=== PATIENT | male | born 1990 | race African-American/Black ===

== ENCOUNTER 2017-02-14 15:31 | Emergency (ER) | payer MEDICAID, OTHER ==
[~2017-02-14] VITALS: Ht 175.3 cm; Wt 114.0 kg
[2017-02-14] MEDS ORDERED: IBUPROFEN 600MG TABLET PO ONE (22:45)
[2017-02-14 23:00] VITALS: BP 141/86
== END 2017-02-14 23:13 | disposition home or self-care (01) ==
LOC: ER 15:31
DX: L03.113 Cellulitis of right upper limb (principal); R03.0 Elevated blood-pressure reading, without diagnosis of hypertension; F12.90 Cannabis use, unspecified, uncomplicated
CPT/HCPCS: 99283

== ENCOUNTER 2019-06-08 10:19 | Emergency (ER) | payer MEDICAID ==
[~2019-06-08] VITALS: Ht 177.8 cm; Wt 98.8 kg
[2019-06-08] MEDS: ONDANSETRON HCL 4MG/2ML INJ IV STA (12:06)
[2019-06-08] MEDS: MECLIZINE 25MG TABLET PO ONE (12:06)
[2019-06-08 12:27] LABS: CLARITY URINE CLEAR (CLEAR); COLOR URINE YELLOW (YELLOW); KETONES URINE TRACE (NEGATIVE); LEUKOCYTE ESTERASE URINE NEGATIVE (NEGATIVE); NITRITE URINE NEGATIVE (NEGATIVE); OCCULT BLOOD URINE NEGATIVE (NEGATIVE); PROTEIN URINE 1+ (NEGATIVE); SPECIFIC GRAVITY URINE 1.009 (1.005-1.030); UROBILINOGEN URINE 0.2 E.U./dL (0.2-1.0)
[2019-06-08 12:28] LABS: BASOPHILS % 0.1 % (0.0-2.0); EOSINOPHILS % 0.1 % (0.0-5.0); HEMATOCRIT. 35.7 % (42.0-52.0); HEMOGLOBIN. 12.2 g/dL (14.0-18.0); LYMPHOCYTES % 24.4 % (20.0-50.0); MEAN CORPUSCULAR HEMOGLOBIN 31.3 pg (28.0-32.0); MEAN CORPUSCULAR VOLUME 91.8 fL (80.0-94.0); MONOCYTES % 12.2 % (2.0-8.0); NEUTROPHILS % 63.2 % (40.0-76.0); PLATELET 161 x1000/uL (130-400); RED CELL DISTRIBUTION WIDTH 13.1 % (11.6-14.6)
[2019-06-08 12:38] LABS: ETHANOL BLOOD < 10 mg/dL
[2019-06-08 12:56] LABS: *AMPHETAMINES SCREEN URINE NEGATIVE (NEGATIVE); *BARBITURATES SCREEN URINE NEGATIVE (NEGATIVE)
[2019-06-08 12:57] LABS: *BENZODIAZEPINES SCREEN URINE NEGATIVE (NEGATIVE); *COCAINE SCREEN URINE NEGATIVE (NEGATIVE); CANNABINOID URINE SCREEN PRESUMTIVE POSITIVE (NEGATIVE); METHADONE URINE SCREEN NEGATIVE (NEGATIVE); OPIATES URINE SCREEN NEGATIVE (NEGATIVE); PHENCYCLIDINE URINE SCREEN NEGATIVE (NEGATIVE)
[2019-06-08 13:08] LABS: CHLORIDE 102 mEq/L (98-107)
[2019-06-08] MEDS: TRAMADOL 50MG TABLET PO ONE (14:58)
[2019-06-08 15:29] VITALS: BP 112/69
== END 2019-06-08 15:30 | disposition home or self-care (01) ==
LOC: ER 10:19
DX: S00.83XA Contusion of other part of head, initial encounter (principal); X58.XXXA Exposure to other specified factors, initial encounter; Y93.89 Activity, other specified; Y92.89 Other specified places as the place of occurrence of the external cause; Y99.8 Other external cause status; F17.290 Nicotine dependence, other tobacco product, uncomplicated; F12.10 Cannabis abuse, uncomplicated; Z91.011 Allergy to milk products
CPT/HCPCS: 36415; 70450; 70486; 80053; 80305; 80320; 81003; 85025; 99284; J8597; J2405; G0480

== ENCOUNTER 2019-12-31 18:58 | Emergency (ER) | payer MEDICAID ==
[~2019-12-31] VITALS: Ht 180.3 cm; Wt 88.0 kg
[2019-12-31] MEDS ORDERED: LIDOCAINE HCL 1%/EPI 1:200,000 30 ML VIAL MC ONE (19:30)
[2019-12-31] MEDS ORDERED: LIDOCAINE HCL/EPINEPHRINE 1%-EPI 1:100,000 20 ML VIAL MC NR (20:00)
[2019-12-31 20:44] VITALS: BP 128/84
== END 2019-12-31 20:44 | disposition home or self-care (01) ==
LOC: ER 18:58
DX: L02.31 Cutaneous abscess of buttock (principal); F12.10 Cannabis abuse, uncomplicated; Z91.011 Allergy to milk products
CPT/HCPCS: 10060; 99282; 99283

== ENCOUNTER 2020-01-10 23:48 | Inpatient (IN) | payer MEDICAID ==
[~2020-01-10] VITALS: Ht 177.8 cm; Wt 81.9 kg
[2020-01-11] MEDS ORDERED: ONDANSETRON HCL 4MG/2ML INJ IV STA (00:21)
[2020-01-11] MEDS ORDERED: SODIUM CHLORIDE 0.9% 1,000 ML IV ONE (00:21)
[2020-01-11] MEDS ORDERED: KETOROLAC 30MG/ML VIAL IV STA (00:21)
[2020-01-11] MEDS ORDERED: FAMOTIDINE 20MG/2ML VIAL IV STA (00:21)
[2020-01-11] MEDS ORDERED: MAGNESIUM/ALUMINUM HYDROXIDE/SIMETHICONE 30ML UDC PO STA (00:21)
[2020-01-11 00:55] LABS: EOSINOPHILS % 3.4 % (0.0-5.0); HEMATOCRIT. 35.3 % (42.0-52.0); HEMOGLOBIN. 11.9 g/dL (14.0-18.0); LYMPHOCYTES % 11.5 % (20.0-50.0); MEAN CORPUSCULAR HEMOGLOBIN 30.5 pg (28.0-32.0); MEAN CORPUSCULAR VOLUME 90.3 fL (80.0-94.0); MEAN PLATELET VOLUME 8.2 fl (7.4-10.4); MONOCYTES % 10.8 % (2.0-8.0); NEUTROPHILS % 74.3 % (40.0-76.0); PLATELET 149 x1000/uL (130-400); RED BLOOD CELL COUNT 3.91 mill/uL (4.7-6.1); RED CELL DISTRIBUTION WIDTH 14.3 % (11.6-14.6)
[2020-01-11 00:57] LABS: CHLORIDE 105 mEq/L (98-107)
[2020-01-11] MEDS ORDERED: ACETAMINOPHEN 325MG TABLET PO PRN ×3 (02:30→02:45)
[2020-01-11] MEDS: DEXT 5%/0.45% NACL 1000ML 1,000 ML IV SCH ×4 (02:36→21:30)
[2020-01-11] MEDS ORDERED: DIPHENHYDRAMINE 50MG/ML VIAL IV PRN (02:45)
[2020-01-11 03:03] LABS: CREATINE KINASE 948 IU/L (39-308)
[2020-01-11 03:06] LABS: CLARITY URINE CLOUDY (CLEAR); COLOR URINE YELLOW (YELLOW); KETONES URINE NEGATIVE (NEGATIVE); LEUKOCYTE ESTERASE URINE NEGATIVE (NEGATIVE); NITRITE URINE NEGATIVE (NEGATIVE); OCCULT BLOOD URINE 2+ (NEGATIVE); PROTEIN URINE 3+ (NEGATIVE); UROBILINOGEN URINE 0.2 E.U./dL (0.2-1.0)
[2020-01-11 09:00] VITALS: BP 140/71
[2020-01-11] MEDS: FAMOTIDINE 20MG/2ML VIAL IV SCH (09:00)
[2020-01-11 09:15] VITALS: BP 140/71
[2020-01-11 11:26] LABS: CHLORIDE 109 mEq/L (98-107)
[2020-01-11 12:00] VITALS: BP 159/68
[2020-01-11 16:00] VITALS: BP 120/72
[2020-01-11 20:00] VITALS: BP 120/66
[2020-01-11] MEDS: ONDANSETRON HCL 4MG/2ML INJ IV PRN (21:30)
[2020-01-12] VITALS: BP 110/68
[2020-01-12] MEDS ORDERED: LOPERAMIDE HCL 2MG CAPSULE PO PRN (02:15)
[2020-01-12 03:32] LABS: *AMPHETAMINES SCREEN URINE NEGATIVE (NEGATIVE); *BARBITURATES SCREEN URINE NEGATIVE (NEGATIVE); *BENZODIAZEPINES SCREEN URINE NEGATIVE (NEGATIVE); *COCAINE SCREEN URINE NEGATIVE (NEGATIVE); METHADONE URINE SCREEN NEGATIVE (NEGATIVE); OPIATES URINE SCREEN PRESUMTIVE POSITIVE (NEGATIVE)
[2020-01-12 03:33] LABS: CANNABINOID URINE SCREEN PRESUMTIVE POSITIVE (NEGATIVE); PHENCYCLIDINE URINE SCREEN NEGATIVE (NEGATIVE)
[2020-01-12 03:44] LABS: CREATININE URINE RANDOM 191.4 mg/dL
[2020-01-12 04:00] VITALS: BP 128/76
[2020-01-12] MEDS: DEXT 5%/0.45% NACL 1000ML 1,000 ML IV SCH ×3 (05:16→18:36)
[2020-01-12 06:47] LABS: PARTIAL THROMBOPLASTIN TIME 35.5 sec (23.4-31.0); PROTHROMBIN TIME 10.7 sec (9.6-11.0)
[2020-01-12 06:48] LABS: HEMOGLOBIN. 10.1 g/dL (14.0-18.0); MEAN CORPUSCULAR HEMOGLOBIN 32.1 pg (28.0-32.0); MEAN CORPUSCULAR VOLUME 92.2 fL (80.0-94.0); RED BLOOD CELL COUNT 3.14 mill/uL (4.7-6.1); RED CELL DISTRIBUTION WIDTH 14.6 % (11.6-14.6)
[2020-01-12 06:56] LABS: CHLORIDE 110 mEq/L (98-107)
[2020-01-12 07:01] LABS: PHOSPHORUS 3.5 mg/dL (2.5-4.9)
[2020-01-12 07:36] LABS: HEPATITIS B SURFACE ANTIGEN NEGATIVE
[2020-01-12 08:03] VITALS: BP 120/73
[2020-01-12 08:06] LABS: HEPATITIS A AB IGM NEGATIVE (NEGATIVE)
[2020-01-12] MEDS: ONDANSETRON HCL 4MG/2ML INJ IV PRN (08:43)
[2020-01-12] MEDS: FAMOTIDINE 20MG/2ML VIAL IV SCH (08:43)
[2020-01-12 12:00] VITALS: BP 120/74
[2020-01-12 12:18] LABS: PLATELET ESTIMATE NORMAL
[2020-01-12 20:19] VITALS: BP 115/58
[2020-01-13] VITALS (7 sets, daily range): BP systolic 113–136; BP diastolic 65–79
[2020-01-13] MEDS: DEXT 5%/0.45% NACL 1000ML 1,000 ML IV SCH ×4 (01:10→21:40)
[2020-01-13] MEDS: ONDANSETRON HCL 4MG/2ML INJ IV PRN ×2 (01:55→09:26)
[2020-01-13 06:47] LABS: HEMATOCRIT. 28.6 % (42.0-52.0); HEMOGLOBIN. 9.8 g/dL (14.0-18.0); MEAN CORPUSCULAR HEMOGLOBIN 30.8 pg (28.0-32.0); MEAN CORPUSCULAR VOLUME 89.7 fL (80.0-94.0); MEAN PLATELET VOLUME 8.7 fl (7.4-10.4); PLATELET 124 x1000/uL (130-400); RED BLOOD CELL COUNT 3.18 mill/uL (4.7-6.1)
[2020-01-13 07:06] LABS: PHOSPHORUS 3.2 mg/dL (2.5-4.9)
[2020-01-13] MEDS: FAMOTIDINE 20MG/2ML VIAL IV SCH (09:12)
[2020-01-13] MEDS ORDERED: MAGNESIUM 4 G PREMIX 100 ML IV NR (12:00)
[2020-01-13 13:14] LABS: PLATELET ESTIMATE SLIGHTLY DECREASED
[2020-01-14] VITALS: BP 123/75
[2020-01-14] MEDS: ONDANSETRON HCL 4MG/2ML INJ IV PRN (01:12)
[2020-01-14 04:00] VITALS: BP 125/80
[2020-01-14] MEDS: DEXT 5%/0.45% NACL 1000ML 1,000 ML IV SCH ×2 (04:04→10:32)
[2020-01-14 06:23] LABS: HEMATOCRIT. 27.4 % (42.0-52.0); HEMOGLOBIN. 9.4 g/dL (14.0-18.0); MEAN CORPUSCULAR HEMOGLOBIN 31.1 pg (28.0-32.0); MEAN CORPUSCULAR VOLUME 90.3 fL (80.0-94.0); MEAN PLATELET VOLUME 8.8 fl (7.4-10.4); PLATELET 123 x1000/uL (130-400); RED BLOOD CELL COUNT 3.04 mill/uL (4.7-6.1); RED CELL DISTRIBUTION WIDTH 14.7 % (11.6-14.6)
[2020-01-14 06:36] LABS: PHOSPHORUS 2.8 mg/dL (2.5-4.9)
[2020-01-14 08:00] VITALS: BP 118/79
[2020-01-14] MEDS: FAMOTIDINE 20MG/2ML VIAL IV SCH (08:55)
[2020-01-14 09:10] LABS: IMMUNOGLOBULIN A 1657 mg/dL (90-386); IMMUNOGLOBULIN G 2208 mg/dL (603-1613); IMMUNOGLOBULIN M 388 mg/dL (20-172)
[2020-01-14] MEDS ORDERED: MAGNESIUM 2 G PREMIX 50 ML IV NR (14:30)
[2020-01-14 16:00] VITALS: BP 114/65
[2020-01-14 19:48] LABS: PLATELET ESTIMATE SLIGHTLY DECREASED
[2020-01-14 20:00] VITALS: BP 128/76
[2020-01-14 20:12] VITALS: BP 128/76
[2020-01-15 08:07] LABS: A/G RATIO 0.5 (0.7-1.7); ALBUMIN 2.8 g/dL (2.9-4.4); ALPHA-1-GLOBULIN 0.3 g/dL (0.0-0.4); ALPHA-2-GLOBULIN 0.8 g/dL (0.4-1.0); BETA GLOBULIN 2.2 g/dL (0.7-1.3); GAMMA GLOBULINS 2.2 g/dL (0.4-1.8); GLOBULIN TOTAL 5.4 g/dL (2.2-3.9); M-SPIKE Not Observed g/dL (Not Observed); TOTAL PROTEIN SERUM 8.2 g/dL (6.0-8.5)
[2020-01-15 13:10] LABS: ANTI-MYELOPEROXIDASE AB < 9.0 U/mL (0.0-9.0); ANTI-PROTEINASE 3 ABS < 3.5 U/mL (0.0-3.5)
[2020-01-15 17:06] LABS: ANA IFA Negative (.)
[2020-01-15 19:10] LABS: ANTI-DNA DOUBLE STRANDED QUANT < 1 IU/mL (0-9)
[2020-01-16 08:07] LABS: HIV 1 ABS Positive (Negative); HIV 2 ABS Negative (Negative); HIV SCREEN 4G Reactive (Non Reactive); INTERPRETATION HIV-1 Positive (.)
[2020-01-16 13:07] LABS: ATYPICAL P-ANCA <1:20 titer (Neg:<1:20); CYTOPLASMIC C-ANCA <1:20 titer (Neg:<1:20); GLOMERULAR BASEMENT MEMB AB 8 units (0-20); PERINUCLEAR P-ANCA <1:20 titer (Neg:<1:20)
== END 2020-01-14 20:35 | disposition home or self-care (01) | DRG 469 ==
LOC: ER 23:48 → EDBEDREQSVC 01-11 06:55 → ENRESERV 01-11 08:16 → 6WST 01-11 09:39 → 6EST 01-13 17:10
PROVIDERS: ADMIT Internal Medicine; ATTEND Internal Medicine
DX: N17.9 Acute kidney failure, unspecified (principal); D64.9 Anemia, unspecified; E44.1 Mild protein-calorie malnutrition; E83.42 Hypomagnesemia; J45.909 Unspecified asthma, uncomplicated; R74.0 Nonspecific elevation of levels of transaminase and lactic acid dehydrogenase [LDH]; L73.2 Hidradenitis suppurativa; Z82.49 Family history of ischemic heart disease and other diseases of the circulatory system; Z83.3 Family history of diabetes mellitus; Z68.25 Body mass index [BMI] 25.0-25.9, adult; Z91.011 Allergy to milk products; Z79.899 Other long term (current) drug therapy
CPT/HCPCS: 36415; 71045; 71250; 74176; 76770; 80048; 80053; 80305; 81003; 82550; 82570; 82784; 83520; 83615; 83735; 84100; 84155; 84156; 84165; 85025; 86160; 86225; 86256; 86334; 86701; 86702; 86705; 86709; 86803; 87340; 87389; 93005; 99285; J1885; J2405; J3475; J3490; J7030

== ENCOUNTER 2020-01-26 15:52 | Emergency (ER) | payer OTHER, MEDICAID ==
[~2020-01-26] VITALS: Ht 172.7 cm; Wt 81.0 kg
[2020-01-26] MEDS ORDERED: ONDANSETRON HCL 4MG/2ML INJ IV STA (16:14)
[2020-01-26] MEDS ORDERED: SODIUM CHLORIDE 0.9% 1,000 ML IV ONE ×2 (16:45→18:15)
[2020-01-26 17:36] LABS: HEMATOCRIT. 30.7 % (42.0-52.0); HEMOGLOBIN. 10.6 g/dL (14.0-18.0); MEAN CORPUSCULAR HEMOGLOBIN 30.2 pg (28.0-32.0); MEAN CORPUSCULAR VOLUME 87.6 fL (80.0-94.0); MEAN PLATELET VOLUME 8.2 fl (7.4-10.4); PLATELET 181 x1000/uL (130-400); RED BLOOD CELL COUNT 3.51 mill/uL (4.7-6.1); RED CELL DISTRIBUTION WIDTH 14.4 % (11.6-14.6)
[2020-01-26 17:44] LABS: INR 1.1
[2020-01-26 17:53] LABS: CHLORIDE 103 mEq/L (98-107)
[2020-01-26 17:53] LABS: CLARITY URINE CLOUDY (CLEAR); COLOR URINE YELLOW (YELLOW); KETONES URINE NEGATIVE (NEGATIVE); LEUKOCYTE ESTERASE URINE NEGATIVE (NEGATIVE); NITRITE URINE NEGATIVE (NEGATIVE); OCCULT BLOOD URINE 2+ (NEGATIVE); PROTEIN URINE 3+ (NEGATIVE); SPECIFIC GRAVITY URINE 1.019 (1.005-1.030)
[2020-01-26 17:57] LABS: ETHANOL BLOOD < 10 mg/dL
[2020-01-26 18:02] LABS: METHADONE URINE SCREEN NEGATIVE (NEGATIVE); OPIATES URINE SCREEN NEGATIVE (NEGATIVE)
[2020-01-26 18:03] LABS: *AMPHETAMINES SCREEN URINE NEGATIVE (NEGATIVE); *BARBITURATES SCREEN URINE NEGATIVE (NEGATIVE); *BENZODIAZEPINES SCREEN URINE NEGATIVE (NEGATIVE); *COCAINE SCREEN URINE NEGATIVE (NEGATIVE); CANNABINOID URINE SCREEN PRESUMTIVE POSITIVE (NEGATIVE); PHENCYCLIDINE URINE SCREEN NEGATIVE (NEGATIVE)
[2020-01-26] MEDS ORDERED: POTASSIUM CHLORIDE INJ 40 MEQ in DEXT 5% WATER 250 ML IV ONE (18:15)
[2020-01-26] MEDS ORDERED: POTASSIUM CHLORIDE 20MEQ TABLET SR PO ONE ×2 (18:15→20:00)
[2020-01-26] MEDS ORDERED: DICYCLOMINE 10 MG/5 ML ORAL SYR PO STA (18:34)
[2020-01-26] MEDS ORDERED: MAGNESIUM/ALUMINUM HYDROXIDE/SIMETHICONE 30ML UDC PO STA (18:34)
[2020-01-26] MEDS ORDERED: VISCOUS LIDOCAINE 2% 15 ML UDC PO STA (18:34)
[2020-01-26 18:35] LABS: ATYPICAL LYMPHOCYTES 1; PLATELET ESTIMATE NORMAL
[2020-01-26 19:49] VITALS: BP 133/71
== END 2020-01-26 20:27 | disposition home or self-care (01) ==
LOC: ER 15:52 → EDBEDREQ 16:18 → ER 20:27 → CANBEDREQ 21:44
DX: R11.10 Vomiting, unspecified (principal); E87.6 Hypokalemia; B37.0 Candidal stomatitis; N18.9 Chronic kidney disease, unspecified; F12.10 Cannabis abuse, uncomplicated; Z88.2 Allergy status to sulfonamides; Z88.3 Allergy status to other anti-infective agents; Z91.011 Allergy to milk products
CPT/HCPCS: 36415; 71045; 80053; 80305; 80320; 81003; 84484; 85025; 85610; 93005; 96361; 96374; 99285; J2405; J3480; J7030; J7060; G0480

== ENCOUNTER 2020-02-07 19:10 | Inpatient (IN) | payer MEDICAID, OTHER ==
[~2020-02-07] VITALS: Ht 175.3 cm; Wt 78.0 kg
[2020-02-07] MEDS ORDERED: VANCOMYCIN 1 G PREMIX 200 ML IV ONE (19:30)
[2020-02-07] MEDS ORDERED: PIPERACILLIN/TAZ 3.375G PREMIX 50 ML IV ONE (19:30)
[2020-02-07] MEDS ORDERED: SODIUM CHLORIDE 0.9% 1,000 ML IV ONE (19:47)
[2020-02-07] MEDS ORDERED: SODIUM CHLORIDE 0.9% 1000ML BAG (SEPSIS BOLUS) IV ONE (20:15)
[2020-02-07 20:27] LABS: BASOPHILS % 0.4 % (0.0-2.0); EOSINOPHILS % 0.6 % (0.0-5.0); HEMATOCRIT. 26.4 % (42.0-52.0); HEMOGLOBIN. 9.4 g/dL (14.0-18.0); LYMPHOCYTES % 11.5 % (20.0-50.0); MEAN CORPUSCULAR HEMOGLOBIN 32.8 pg (28.0-32.0); MEAN CORPUSCULAR VOLUME 91.8 fL (80.0-94.0); MEAN PLATELET VOLUME 8.3 fl (7.4-10.4); MONOCYTES % 4.6 % (2.0-8.0); NEUTROPHILS % 82.9 % (40.0-76.0); PLATELET 143 x1000/uL (130-400); RED BLOOD CELL COUNT 2.88 mill/uL (4.7-6.1); RED CELL DISTRIBUTION WIDTH 15.6 % (11.6-14.6)
[2020-02-07 20:33] LABS: CHLORIDE 100 mEq/L (98-107)
[2020-02-07 20:35] LABS: INR 1.1; PROTHROMBIN TIME 11.4 sec (9.6-11.0)
[2020-02-07] MEDS ORDERED: MORPHINE SULFATE 4 MG/ML CPJ (NOT FOR IM USE) IV STA (20:45)
[2020-02-07] MEDS ORDERED: ONDANSETRON HCL 4MG/2ML INJ IV STA (20:45)
[2020-02-08] VITALS (8 sets, daily range): BP systolic 109–142; BP diastolic 57–83
[2020-02-08] MEDS: DEXT 5% WATER + KCL 20MEQ/L 1,000 ML IV SCH ×3 (03:08→18:28)
[2020-02-08] MEDS: MORPHINE SULFATE 2 MG/ML CPJ (NOT FOR IM USE) IV PRN ×4 (04:17→22:27)
[2020-02-08] MEDS: ONDANSETRON HCL 4MG/2ML INJ IV PRN (07:59)
[2020-02-08] MEDS ORDERED: ACETAMINOPHEN 650MG SUPP PR PRN (12:15)
[2020-02-08] MEDS ORDERED: HYDRALAZINE 20MG/ML VIAL IV PRN (12:15)
[2020-02-08] MEDS ORDERED: IPRATROPIUM/ALBUTEROL 0.5-3(2.5)MG/3ML NEB HHN PRN (12:15)
[2020-02-08] MEDS ORDERED: ACETAMINOPHEN 325MG TABLET PO PRN (12:15)
[2020-02-08] MEDS ORDERED: POTASSIUM CHLORIDE 20MEQ TABLET SR PO NR (13:40)
[2020-02-08] MEDS: METRONIDAZOLE 500 MG PREMIX 100 ML IV SCH ×2 (14:02→23:36)
[2020-02-08 16:45] LABS: BG BASE EXCESS -3.1 mmol/L (-2.0-2.0); BG CARBOXYHEMOGLOBIN 0.3 % (0.5-1.5); BG DEOXYHEMOGLOBIN 2.5 % (0.0-5.0); BG FRACTION INSPIRED OXYGEN 21; BG HCO3 ACT 19.5 mmol/L (22.0-26.0); BG METHEMOGLOBIN 0.5 % (0.0-1.5); BG OXYGEN SATURATION 97.5 % (92.0-98.5); BG OXYHEMOGLOBIN 96.7 % (94.0-97.0); BG PCO2 25.2 mmHg (35.0-45.0); BG PH 7.507 (7.350-7.450); BG PO2 119.7 mmHg (75.0-100.0); BG SAMPLE SITE RIGHT RADIAL; BG VENT MODE ROOM AIR
[2020-02-08] MEDS: PANTOPRAZOLE SODIUM 40 MG/VIAL IV SCH (17:32)
[2020-02-08 20:49] LABS: CHLORIDE 101 mEq/L (98-107)
[2020-02-08 20:57] LABS: LDL CHOLESTEROL 43 mg/dL (5-100)
[2020-02-08 20:58] LABS: HDL CHOLESTEROL 24 mg/dL (40-59); HEMATOCRIT. 21.7 % (42.0-52.0); HEMOGLOBIN. 7.7 g/dL (14.0-18.0); MEAN CORPUSCULAR HEMOGLOBIN 31.7 pg (28.0-32.0); MEAN CORPUSCULAR VOLUME 89.9 fL (80.0-94.0); MEAN PLATELET VOLUME 7.9 fl (7.4-10.4); PLATELET 121 x1000/uL (130-400); RED BLOOD CELL COUNT 2.42 mill/uL (4.7-6.1); RED CELL DISTRIBUTION WIDTH 15.3 % (11.6-14.6); T4 FREE 0.83 ng/dL (0.76-1.46)
[2020-02-08 21:32] LABS: NUCLEATED RED BLOOD CELLS 5 /100 WBC; PLATELET ESTIMATE NORMAL
[2020-02-08] MEDS ORDERED: POTASSIUM CHLORIDE INJ 60 MEQ in DEXT 5% WATER 500 ML IV ONE (23:00)
[2020-02-09] VITALS (23 sets, daily range): BP systolic 111–135; BP diastolic 62–78
[2020-02-09] MEDS: VANCOMYCIN 1500MG in DEXTROSE 5% WATER 250ML IV SCH ×2 (01:19→13:02)
[2020-02-09] MEDS: MORPHINE SULFATE 2 MG/ML CPJ (NOT FOR IM USE) IV PRN ×4 (03:53→20:38)
[2020-02-09] MEDS: METRONIDAZOLE 500 MG PREMIX 100 ML IV SCH ×3 (06:23→22:39)
[2020-02-09] MEDS: ONDANSETRON HCL 4MG/2ML INJ IV PRN ×3 (08:24→20:36)
[2020-02-09] MEDS: PANTOPRAZOLE SODIUM 40 MG/VIAL IV SCH ×2 (08:24→16:00)
[2020-02-09 08:47] LABS: CHLORIDE 104 mEq/L (98-107); MEAN CORPUSCULAR HEMOGLOBIN 32.6 pg (28.0-32.0); MEAN CORPUSCULAR VOLUME 92.4 fL (80.0-94.0); MEAN PLATELET VOLUME 8.1 fl (7.4-10.4); PLATELET 105 x1000/uL (130-400); RED BLOOD CELL COUNT 2.11 mill/uL (4.7-6.1); RED CELL DISTRIBUTION WIDTH 15.8 % (11.6-14.6)
[2020-02-09 08:52] LABS: HEMOGLOBIN. 6.9 g/dL (14.0-18.0)
[2020-02-09 08:53] LABS: HEMATOCRIT. 19.5 % (42.0-52.0)
[2020-02-09] MEDS ORDERED: CALCIUM GLUCONATE 1,000 MG in DEXT 5% WATER 90 ML IV NR (11:30)
[2020-02-09 11:55] LABS: TOTAL IRON BINDING CAPACITY 103 ug/dL (250-450)
[2020-02-09] MEDS ORDERED: POTASSIUM CHLORIDE INJ 60 MEQ in DEXT 5% WATER 500 ML IV ONE (12:00)
[2020-02-09 13:17] LABS: HEPATITIS B SURFACE ANTIGEN NEGATIVE
[2020-02-09 13:47] LABS: HEPATITIS A AB IGM NEGATIVE (NEGATIVE)
[2020-02-09] MEDS: MEROPENEM 1,000 MG in SODIUM CHLORIDE 0.9% 100 ML IV SCH (18:06)
[2020-02-09] MEDS: DEXT 5%/0.9% NACL 1,000 ML IV SCH (20:30)
[2020-02-09 20:32] LABS: HEMATOCRIT 25.8 % (42.0-52.0); HEMOGLOBIN 9.1 g/dL (14.0-18.0)
[2020-02-09 20:40] LABS: CHLORIDE 106 mEq/L (98-107)
[2020-02-10] VITALS (12 sets, daily range): BP systolic 98–138; BP diastolic 53–88
[2020-02-10] MEDS: VANCOMYCIN 1500MG in DEXTROSE 5% WATER 250ML IV SCH (00:34)
[2020-02-10 00:43] LABS: HEMATOCRIT 28.3 % (42.0-52.0); HEMOGLOBIN 9.9 g/dL (14.0-18.0)
[2020-02-10] MEDS: ONDANSETRON HCL 4MG/2ML INJ IV PRN ×4 (00:54→23:07)
[2020-02-10] MEDS: MORPHINE SULFATE 2 MG/ML CPJ (NOT FOR IM USE) IV PRN ×4 (00:56→23:06)
[2020-02-10] MEDS: MEROPENEM 1,000 MG in SODIUM CHLORIDE 0.9% 100 ML IV SCH ×3 (03:22→17:59)
[2020-02-10] MEDS: DEXT 5%/0.9% NACL 1,000 ML IV SCH ×2 (05:56→14:32)
[2020-02-10] MEDS: METRONIDAZOLE 500 MG PREMIX 100 ML IV SCH ×3 (05:57→23:04)
[2020-02-10 07:30] LABS: CHLORIDE 109 mEq/L (98-107)
[2020-02-10 07:32] LABS: HEMATOCRIT 25.9 % (42.0-52.0); HEMOGLOBIN 9.3 g/dL (14.0-18.0); MEAN CORPUSCULAR HEMOGLOBIN 33.5 pg (28.0-32.0); MEAN CORPUSCULAR VOLUME 92.9 fL (80.0-94.0); PLATELET 102 x1000/uL (130-400); RED BLOOD CELL COUNT 2.79 mill/uL (4.7-6.1)
[2020-02-10 08:16] LABS: NUCLEATED RED BLOOD CELLS 12 /100 WBC
[2020-02-10 08:17] LABS: PLATELET ESTIMATE SLIGHTLY DECREASED
[2020-02-10] MEDS: PANTOPRAZOLE SODIUM 40 MG/VIAL IV SCH ×2 (08:42→17:59)
[2020-02-10] MEDS ORDERED: POTASSIUM CHLORIDE INJ 40 MEQ in DEXT 5% WATER 250 ML IV NR (09:00)
[2020-02-10] MEDS ORDERED: MAGNESIUM 1 G PREMIX 100 ML IV NR ×2 (09:00→13:00)
[2020-02-10] MEDS ORDERED: CALCIUM GLUCONATE 100MG/ML 10ML VIAL IV ONE (09:00)
[2020-02-10] MEDS ORDERED: CALCIUM GLUCONATE 1,000 MG in DEXT 5% WATER 90 ML IV NR (09:00)
[2020-02-10] MEDS ORDERED: POTASSIUM CHLORIDE INJ 40 MEQ in DEXT 5% WATER 250 ML IV ONE (10:30)
[2020-02-10] MEDS: VANCOMYCIN 1250MG in DEXTROSE 5% WATER 250ML IV SCH (11:36)
[2020-02-10 12:29] LABS: HEMATOCRIT 26.2 % (42.0-52.0); HEMOGLOBIN 9.1 g/dL (14.0-18.0)
[2020-02-10 18:56] LABS: HEMATOCRIT 26.9 % (42.0-52.0); HEMOGLOBIN 9.6 g/dL (14.0-18.0)
[2020-02-11] VITALS (11 sets, daily range): BP systolic 106–135; BP diastolic 47–97
[2020-02-11] MEDS: VANCOMYCIN 1250MG in DEXTROSE 5% WATER 250ML IV SCH ×2 (01:03→11:57)
[2020-02-11] MEDS: MEROPENEM 1,000 MG in SODIUM CHLORIDE 0.9% 100 ML IV SCH ×3 (02:19→18:23)
[2020-02-11] MEDS: DEXT 5%/0.9% NACL 1,000 ML IV SCH ×2 (02:19→11:57)
[2020-02-11 05:56] LABS: HEMATOCRIT 27.9 % (42.0-52.0); HEMOGLOBIN 9.9 g/dL (14.0-18.0); MEAN CORPUSCULAR HEMOGLOBIN 31.4 pg (28.0-32.0); MEAN CORPUSCULAR VOLUME 88.9 fL (80.0-94.0); PLATELET 93 x1000/uL (130-400); RED BLOOD CELL COUNT 3.14 mill/uL (4.7-6.1); RED CELL DISTRIBUTION WIDTH 15.2 % (11.6-14.6)
[2020-02-11 06:07] LABS: CHLORIDE 110 mEq/L (98-107)
[2020-02-11 06:16] LABS: PHOSPHORUS 1.9 mg/dL (2.5-4.9)
[2020-02-11] MEDS: METRONIDAZOLE 500 MG PREMIX 100 ML IV SCH (07:45)
[2020-02-11] MEDS: ONDANSETRON HCL 4MG/2ML INJ IV PRN ×2 (07:51→17:06)
[2020-02-11] MEDS: MORPHINE SULFATE 2 MG/ML CPJ (NOT FOR IM USE) IV PRN ×2 (08:12→13:26)
[2020-02-11] MEDS: PANTOPRAZOLE SODIUM 40 MG/VIAL IV SCH ×2 (09:04→17:05)
[2020-02-11] MEDS ORDERED: LOPERAMIDE HCL 2MG CAPSULE PO PRN (12:00)
[2020-02-11] MEDS ORDERED: CALCIUM GLUCONATE 1,000 MG in DEXT 5% WATER 90 ML IV SCH (20:00)
[2020-02-11] MEDS ORDERED: MAGNESIUM 1 G PREMIX 100 ML IV SCH (20:00)
[2020-02-11] MEDS ORDERED: POTASSIUM CHLORIDE INJ 40 MEQ in DEXT 5% WATER 250 ML IV NR (21:00)
[2020-02-12] VITALS: BP 113/71
[2020-02-12 04:00] VITALS: BP 122/85
[2020-02-12] MEDS: MEROPENEM 1,000 MG in SODIUM CHLORIDE 0.9% 100 ML IV SCH ×2 (05:20→10:24)
[2020-02-12 08:00] VITALS: BP 125/89
[2020-02-12] MEDS: PANTOPRAZOLE SODIUM 40 MG/VIAL IV SCH ×2 (10:25→16:59)
[2020-02-12 12:00] VITALS: BP 125/89
[2020-02-12 12:03] LABS: HEMATOCRIT 28.2 % (42.0-52.0); HEMOGLOBIN 9.8 g/dL (14.0-18.0); MEAN CORPUSCULAR HEMOGLOBIN 30.9 pg (28.0-32.0); MEAN CORPUSCULAR VOLUME 88.4 fL (80.0-94.0); PLATELET 84 x1000/uL (130-400); RED BLOOD CELL COUNT 3.19 mill/uL (4.7-6.1); RED CELL DISTRIBUTION WIDTH 15.5 % (11.6-14.6)
[2020-02-12 12:06] LABS: CHLORIDE 111 mEq/L (98-107)
[2020-02-12] MEDS ORDERED: MAGNESIUM OXIDE 400MG TABLET PO SCH (12:30)
[2020-02-12] MEDS ORDERED: POTASSIUM CHLORIDE 20MEQ TABLET SR PO SCH (12:30)
[2020-02-12] MEDS ORDERED: ONDA4TAB5 MT (12:40)
[2020-02-12] MEDS ORDERED: AMOX1TAB16 MT (12:40)
[2020-02-12] MEDS ORDERED: AZIT500T3 PO (12:40)
[2020-02-12] MEDS ORDERED: POTA20TA82 MT (12:40)
[2020-02-12] MEDS ORDERED: MAGN200T9 PO (12:40)
[2020-02-12 16:00] VITALS: BP 124/64
[2020-02-12] MEDS ORDERED: ONDANSETRON HCL 4MG/2ML INJ IV PRN (16:15)
[2020-02-12 17:13] VITALS: BP 124/64
[2020-02-12] MEDS ORDERED: ATOVAQUONE 750 MG/5 ML ORAL.SUSP PO SCH (17:30)
[2020-02-13] MEDS ORDERED: ATOVAQUONE 750 MG/5 ML ORAL.SUSP PO SCH (09:00)
[2020-02-13 09:06] LABS: ABSOLUTE EOSINOPHILS 0.1 x10E3/uL (0.0-0.4); ABSOLUTE LYMPHOCYTES 0.4 x10E3/uL (0.7-3.1); ABSOLUTE MONOCYTES 0.1 x10E3/uL (0.1-0.9); ABSOLUTE NEUTROPHILS 1.4 x10E3/uL (1.4-7.0); BASOPHILS 1 % (Not Estab.); HEMATOCRIT 28.6 % (37.5-51.0); HEMATOLOGY COMMENT Note: (.); HEMOGLOBIN 9.4 g/dL (13.0-17.7); IMMATURE GRANULOCYTES 1 % (Not Estab.); LYMPHOCYTES 18 % (Not Estab.); MEAN CORPUSCULAR HEMOGLOBIN 29.2 pg (26.6-33.0); MEAN CORPUSCULAR HGB CONC. 32.9 g/dL (31.5-35.7); MEAN CORPUSCULAR VOLUME 89 fL (79-97); MONOCYTES 5 % (Not Estab.); NEUTROPHILS 69 % (Not Estab.); PLATELETS 57 x10E3/uL (150-450); RBC 3.22 x10E6/uL (4.14-5.80); RED CELL DISTRIBUTION WIDTH 17.2 % (11.6-15.4)
[2020-02-13 13:11] LABS: % CD 4 POS. LYMPHOCYTES 16.7 % (30.8-58.5); % CD 8 POS. LYMPH 44.4 % (12.0-35.5); ABSOLUTE CD 3 244 /uL (622-2402); ABSOLUTE CD 4 HELPER 67 /uL (359-1519); ABSOLUTE CD 8 SUPPRESSOR 178 /uL (109-897); CD4/CD8 RATIO 0.38 (0.92-3.72)
[2020-02-14 04:09] LABS: OVA & PARASITE EXAM Final report (.)
[2020-02-14] MEDS ORDERED: AZITHROMYCIN 500 MG TABLET PO SCH (09:00)
== END 2020-02-12 18:51 | disposition home or self-care (01) | DRG 247 ==
LOC: ER 19:10 → MICUSO 22:52 → EDBEDREQ 23:01 → EDBEDREQTM 23:01 → 8WST 02-08 00:04 → 5EST 02-08 18:10 → 5WST 02-11 20:25
PROVIDERS: ADMIT Internal Medicine; ATTEND Internal Medicine
PROC: 30233N1 Transfusion of Nonautologous Red Blood Cells into Peripheral Vein, Percutaneous Approach (ICD-10-PCS; principal; 2020-02-09)
DX: K56.609 Unspecified intestinal obstruction, unspecified as to partial versus complete obstruction (principal); K52.9 Noninfective gastroenteritis and colitis, unspecified; J98.2 Interstitial emphysema; E83.51 Hypocalcemia; E86.0 Dehydration; E87.1 Hypo-osmolality and hyponatremia; E87.2 Acidosis; E87.6 Hypokalemia; F17.200 Nicotine dependence, unspecified, uncomplicated; N17.9 Acute kidney failure, unspecified; N28.1 Cyst of kidney, acquired; D64.9 Anemia, unspecified; R74.0 Nonspecific elevation of levels of transaminase and lactic acid dehydrogenase [LDH]; E46 Unspecified protein-calorie malnutrition; F12.10 Cannabis abuse, uncomplicated; F14.10 Cocaine abuse, uncomplicated; D61.818 Other pancytopenia; K56.7 Ileus, unspecified; K22.6 Gastro-esophageal laceration-hemorrhage syndrome; Z88.2 Allergy status to sulfonamides; Z88.8 Allergy status to other drugs, medicaments and biological substances; Z88.6 Allergy status to analgesic agent; Z91.011 Allergy to milk products; Z68.25 Body mass index [BMI] 25.0-25.9, adult; R65.11 Systemic inflammatory response syndrome (SIRS) of non-infectious origin with acute organ dysfunction
CPT/HCPCS: 36415; 36600; 71045; 71250; 74018; 74176; 80048; 80053; 80061; 80202; 82270; 82330; 82375; 82728; 82805; 83540; 83550; 83605; 83735; 84100; 84145; 84439; 84443; 84484; 85014; 85018; 85025; 85027; 86359; 86360; 86705; 86709; 86803; 86850; 86900; 86920; 87015; 87045; 87077; 87177; 87209; 87340; 87427; 87449; 87493; 89055; 93005; 93306; 99291; C9113; J0610; J2185; J2270; J2405; J2543; J3370; J3475; J3480; J3490; J7030; J7042; J7050; J7060; P9016

== ENCOUNTER 2020-02-22 11:12 | Inpatient (IN) | payer OTHER ==
[~2020-02-22] VITALS: Ht 180.3 cm; Wt 65.5 kg
[~2020-02-22 11:12] MED LIST: AMOX1TAB16 MT; AZIT500T3 PO; MAGN200T9 PO; ONDA4TAB5 MT; POTA20TA82 MT
[2020-02-22] MEDS ORDERED: DEXTROSE 50% WATER 50ML SYRINGE IV ONE ×2 (12:58→13:00)
[2020-02-22 13:31] LABS: HEMATOCRIT. 25.7 % (42.0-52.0); MEAN CORPUSCULAR HEMOGLOBIN 30.9 pg (28.0-32.0); MEAN CORPUSCULAR VOLUME 87.8 fL (80.0-94.0); MEAN PLATELET VOLUME 8.8 fl (7.4-10.4); PLATELET 110 x1000/uL (130-400); RED BLOOD CELL COUNT 2.92 mill/uL (4.7-6.1); RED CELL DISTRIBUTION WIDTH 15.6 % (11.6-14.6)
[2020-02-22 13:37] LABS: CHLORIDE 103 mEq/L (98-107)
[2020-02-22 13:42] LABS: ETHANOL BLOOD < 10 mg/dL
[2020-02-22] MEDS ORDERED: MAGNESIUM 2 G PREMIX 50 ML IV ONE (14:00)
[2020-02-22] MEDS ORDERED: CALCIUM GLUCONATE 100MG/ML 10ML VIAL IV ONE (14:00)
[2020-02-22] MEDS ORDERED: KCL 20MEQ/100ML PREMIX 100 ML IV ONE (14:00)
[2020-02-22 14:15] LABS: NUCLEATED RED BLOOD CELLS 2 /100 WBC
[2020-02-22 14:16] LABS: PLATELET ESTIMATE DECREASED
[2020-02-22 14:16] LABS: CLARITY URINE CLEAR (CLEAR); COLOR URINE DARK YELLOW (YELLOW); KETONES URINE NEGATIVE (NEGATIVE); LEUKOCYTE ESTERASE URINE TRACE (NEGATIVE); NITRITE URINE NEGATIVE (NEGATIVE); OCCULT BLOOD URINE 2+ (NEGATIVE); PROTEIN URINE 2+ (NEGATIVE); SPECIFIC GRAVITY URINE 1.019 (1.005-1.030)
[2020-02-22 14:55] LABS: *BARBITURATES SCREEN URINE NEGATIVE (NEGATIVE)
[2020-02-22 14:56] LABS: *AMPHETAMINES SCREEN URINE NEGATIVE (NEGATIVE); *BENZODIAZEPINES SCREEN URINE NEGATIVE (NEGATIVE); *COCAINE SCREEN URINE NEGATIVE (NEGATIVE); METHADONE URINE SCREEN NEGATIVE (NEGATIVE); OPIATES URINE SCREEN NEGATIVE (NEGATIVE)
[2020-02-22 14:57] LABS: PHENCYCLIDINE URINE SCREEN NEGATIVE (NEGATIVE)
[2020-02-22 14:58] LABS: CANNABINOID URINE SCREEN NEGATIVE (NEGATIVE)
[2020-02-22] MEDS ORDERED: CALCIUM GLUCONATE 100MG/ML 10ML VIAL IV NR (15:30)
[2020-02-22] MEDS ORDERED: KCL 20MEQ/100ML PREMIX 100 ML IV NR (15:30)
[2020-02-22] MEDS ORDERED: POTASSIUM CHLORIDE 20MEQ TABLET SR PO ONE (17:45)
[2020-02-22 22:00] VITALS: BP 96/59
[2020-02-22 22:11] VITALS: BP 96/59
[2020-02-22] MEDS ORDERED: CALCIUM GLUCONATE 1,000 MG in DEXT 5% WATER 90 ML IV ONE (23:30)
[2020-02-23] VITALS: BP 103/62
[2020-02-23] MEDS ORDERED: SODIUM CHL 0.9% + KCL 20MEQ/L 1,000 ML IV SCH (01:00)
[2020-02-23] MEDS ORDERED: KCL 20MEQ/100ML PREMIX 100 ML IV SCH (01:00)
[2020-02-23] MEDS ORDERED: CALCIUM GLUCONATE 100MG/ML 10ML VIAL IV ONE (01:00)
[2020-02-23 02:56] LABS: BASOPHILS % 0.4 % (0.0-2.0); EOSINOPHILS % 0.6 % (0.0-5.0); HEMATOCRIT. 26.7 % (42.0-52.0); HEMOGLOBIN. 9.2 g/dL (14.0-18.0); LYMPHOCYTES % 10.3 % (20.0-50.0); MEAN CORPUSCULAR HEMOGLOBIN 30.7 pg (28.0-32.0); MEAN CORPUSCULAR VOLUME 89.3 fL (80.0-94.0); MEAN PLATELET VOLUME 8.8 fl (7.4-10.4); MONOCYTES % 5.5 % (2.0-8.0); NEUTROPHILS % 83.2 % (40.0-76.0); PLATELET 119 x1000/uL (130-400); RED BLOOD CELL COUNT 2.98 mill/uL (4.7-6.1); RED CELL DISTRIBUTION WIDTH 15.5 % (11.6-14.6)
[2020-02-23 02:59] LABS: CHLORIDE 107 mEq/L (98-107)
[2020-02-23 04:00] VITALS: BP 102/66
[2020-02-23 06:50] LABS: CHLORIDE 109 mEq/L (98-107)
[2020-02-23 07:59] VITALS: BP 99/58
[2020-02-23 11:21] LABS: BG CARBOXYHEMOGLOBIN 0.2 % (0.5-1.5); BG DEOXYHEMOGLOBIN 2.8 % (0.0-5.0); BG FRACTION INSPIRED OXYGEN 21; BG METHEMOGLOBIN 0.3 % (0.0-1.5); BG OXYGEN SATURATION 97.2 % (92.0-98.5); BG OXYHEMOGLOBIN 96.7 % (94.0-97.0); BG PCO2 24.5 mmHg (35.0-45.0); BG PH 7.529 (7.350-7.450); BG PO2 111.1 mmHg (75.0-100.0); BG SAMPLE SITE RIGHT BRACHIAL; BG TOTAL HEMOGLOBIN 8.6 g/dL (12.0-18.0); BG VENT MODE ROOM AIR
[2020-02-23] MEDS ORDERED: POTASSIUM CHLORIDE INJ 60 MEQ in DEXT 5% WATER 500 ML IV ONE (12:00)
[2020-02-23 12:09] VITALS: BP 103/65
[2020-02-23 13:11] LABS: INR 1.2; PROTHROMBIN TIME 12.8 sec (9.6-11.0)
[2020-02-23 16:00] VITALS: BP 105/67
[2020-02-23] MEDS ORDERED: ONDANSETRON HCL 4MG/2ML INJ IV PRN (16:45)
[2020-02-23] MEDS ORDERED: HYDROCODONE/ACETAMINOPHEN 5/325MG TABLET PO PRN (16:45)
[2020-02-23] MEDS ORDERED: ACETAMINOPHEN 650MG SUPP PR PRN (16:45)
[2020-02-23] MEDS ORDERED: IPRATROPIUM/ALBUTEROL 0.5-3(2.5)MG/3ML NEB HHN PRN (16:45)
[2020-02-23] MEDS ORDERED: LORAZEPAM 2MG/ML CPJ IV PRN (16:45)
[2020-02-23] MEDS: FAMOTIDINE 20MG/2ML VIAL IV SCH (17:32)
[2020-02-23] MEDS: SODIUM CHL 0.45% + KCL 20MEQ/L 1,000 ML IV SCH (18:30)
[2020-02-23] MEDS: PIPERACILLIN/TAZOBACTAM 2.25 G in DEXTROSE 5% WATER 50 ML IV SCH (18:38)
[2020-02-23] MEDS ORDERED: VANCOMYCIN 1250MG in DEXTROSE 5% WATER 250ML IV SCH (19:00)
[2020-02-23 20:00] VITALS: BP 113/82
[2020-02-23 20:50] LABS: BASOPHILS % 0.2 % (0.0-2.0); EOSINOPHILS % 0.4 % (0.0-5.0); HEMATOCRIT. 25.5 % (42.0-52.0); HEMOGLOBIN. 8.8 g/dL (14.0-18.0); LYMPHOCYTES % 9.8 % (20.0-50.0); MEAN CORPUSCULAR HEMOGLOBIN 30.7 pg (28.0-32.0); MEAN CORPUSCULAR VOLUME 89.5 fL (80.0-94.0); MEAN PLATELET VOLUME 9.2 fl (7.4-10.4); MONOCYTES % 6.5 % (2.0-8.0); NEUTROPHILS % 83.1 % (40.0-76.0); PLATELET 126 x1000/uL (130-400); RED BLOOD CELL COUNT 2.85 mill/uL (4.7-6.1); RED CELL DISTRIBUTION WIDTH 15.5 % (11.6-14.6)
[2020-02-23] MEDS ORDERED: POTASSIUM CHLORIDE INJ 40 MEQ in DEXT 5% WATER 250 ML IV SCH (23:00)
[2020-02-24] VITALS (8 sets, daily range): BP systolic 94–110; BP diastolic 52–74
[2020-02-24] MEDS: PIPERACILLIN/TAZOBACTAM 2.25 G in DEXTROSE 5% WATER 50 ML IV SCH ×3 (00:49→14:16)
[2020-02-24] MEDS: SODIUM CHL 0.45% + KCL 20MEQ/L 1,000 ML IV SCH ×4 (03:41→23:43)
[2020-02-24 06:52] LABS: CHLORIDE 117 mEq/L (98-107)
[2020-02-24] MEDS ORDERED: KCL 10MEQ/50ML PREMIX 50 ML IV SCH (10:00)
[2020-02-24] MEDS ORDERED: VANCOMYCIN 750 MG PREMIX 150 ML IV NR (10:00)
[2020-02-24] MEDS ORDERED: SODIUM CHLORIDE 0.9% 1,000 ML IV ONE (10:45)
[2020-02-24] MEDS ORDERED: POTASSIUM CHLORIDE INJ 60 MEQ in DEXT 5% WATER 500 ML IV ONE (11:00)
[2020-02-24] MEDS: FAMOTIDINE 20MG/2ML VIAL IV SCH (17:40)
[2020-02-24] MEDS: NYSTATIN 100,000 UNITS/ML 5ML UDC SSW SCH ×2 (18:25→23:43)
[2020-02-24] MEDS: METRONIDAZOLE 500MG TABLET PO SCH (21:38)
[2020-02-24] MEDS ORDERED: POTASSIUM CHLORIDE INJ 40 MEQ in DEXT 5% WATER 250 ML IV NR (23:30)
[2020-02-25] VITALS: BP 106/68
[2020-02-25] MEDS: SODIUM CHL 0.45% + KCL 20MEQ/L 1,000 ML IV SCH ×2 (01:15→17:30)
[2020-02-25 04:00] VITALS: BP 151/64
[2020-02-25] MEDS: NYSTATIN 100,000 UNITS/ML 5ML UDC SSW SCH ×3 (05:04→17:30)
[2020-02-25] MEDS: METRONIDAZOLE 500MG TABLET PO SCH ×3 (05:04→21:53)
[2020-02-25 08:00] VITALS: BP 111/78
[2020-02-25 08:54] LABS: CHLORIDE 126 mEq/L (98-107)
[2020-02-25 10:33] LABS: HEMATOCRIT. 27.4 % (42.0-52.0); HEMOGLOBIN. 9.4 g/dL (14.0-18.0); MEAN CORPUSCULAR VOLUME 93.2 fL (80.0-94.0); MEAN PLATELET VOLUME 10.1 fl (7.4-10.4); PLATELET 101 x1000/uL (130-400); RED BLOOD CELL COUNT 2.94 mill/uL (4.7-6.1); RED CELL DISTRIBUTION WIDTH 16.2 % (11.6-14.6)
[2020-02-25 12:00] VITALS: BP 117/78
[2020-02-25 12:00] LABS: NUCLEATED RED BLOOD CELLS 7 /100 WBC; PLATELET ESTIMATE DECREASED
[2020-02-25] MEDS: ATOVAQUONE 750MG/5ML PACKET PO SCH (12:23)
[2020-02-25] MEDS: FAMOTIDINE 20MG/2ML VIAL IV SCH (17:30)
[2020-02-25 20:00] VITALS: BP 104/74
[2020-02-25 21:28] LABS: VITAMIN B12 SERUM >2000 pg/mL pg/mL (211-911)
[2020-02-25] MEDS: DEXT 5%/0.2% NACL 1,000 ML IV SCH (22:00)
[2020-02-26] VITALS: BP 111/65
[2020-02-26] MEDS: DEXT 5%/0.2% NACL 1,000 ML IV SCH (03:00)
[2020-02-26 04:00] VITALS: BP 95/66
[2020-02-26] MEDS: NYSTATIN 100,000 UNITS/ML 5ML UDC SSW SCH ×5 (05:48→23:21)
[2020-02-26] MEDS: METRONIDAZOLE 500MG TABLET PO SCH ×3 (05:48→23:21)
[2020-02-26 06:34] LABS: HEMATOCRIT. 25.5 % (42.0-52.0); HEMOGLOBIN. 8.8 g/dL (14.0-18.0); MEAN CORPUSCULAR HEMOGLOBIN 31.3 pg (28.0-32.0); MEAN PLATELET VOLUME 10.1 fl (7.4-10.4); PLATELET 95 x1000/uL (130-400); RED BLOOD CELL COUNT 2.81 mill/uL (4.7-6.1); RED CELL DISTRIBUTION WIDTH 16.1 % (11.6-14.6)
[2020-02-26 06:49] LABS: CHLORIDE 128 mEq/L (98-107)
[2020-02-26 07:00] LABS: PHOSPHORUS 3.2 mg/dL (2.5-4.9)
[2020-02-26 08:29] LABS: BG BASE EXCESS -8.6 mmol/L (-2.0-2.0); BG CARBOXYHEMOGLOBIN 0.3 % (0.5-1.5); BG DEOXYHEMOGLOBIN 1.7 % (0.0-5.0); BG FRACTION INSPIRED OXYGEN 21; BG HCO3 ACT 13.8 mmol/L (22.0-26.0); BG METHEMOGLOBIN 0.4 % (0.0-1.5); BG OXYGEN SATURATION 98.3 % (92.0-98.5); BG OXYHEMOGLOBIN 97.6 % (94.0-97.0); BG PCO2 19.9 mmHg (35.0-45.0); BG PH 7.458 (7.350-7.450); BG PO2 136.8 mmHg (75.0-100.0); BG SAMPLE SITE RIGHT RADIAL; BG VENT MODE ROOM AIR
[2020-02-26] MEDS ORDERED: POTASSIUM CHLORIDE 20MEQ TABLET SR PO NR (10:15)
[2020-02-26] MEDS: ATOVAQUONE 750MG/5ML PACKET PO SCH (10:24)
[2020-02-26] MEDS ORDERED: ALBUMIN HUMAN 25GM/100ML (25%) IV NR (11:30)
[2020-02-26] MEDS: DEXTROSE 5% WATER 1,000 ML IV SCH ×2 (14:18→23:25)
[2020-02-26] MEDS ORDERED: LOPERAMIDE HCL 2MG CAPSULE PO NR (14:45)
[2020-02-26] MEDS: LEVOFLOXACIN 500MG PREMIX 100 ML IV SCH (15:24)
[2020-02-26 18:32] LABS: NUCLEATED RED BLOOD CELLS 4 /100 WBC; PLATELET ESTIMATE DECREASED
[2020-02-26] MEDS: FAMOTIDINE 20MG/2ML VIAL IV SCH (18:54)
[2020-02-26 20:00] VITALS: BP 106/69
[2020-02-27 04:00] VITALS: BP 106/67
[2020-02-27] MEDS: NYSTATIN 100,000 UNITS/ML 5ML UDC SSW SCH ×3 (06:36→18:00)
[2020-02-27] MEDS: METRONIDAZOLE 500MG TABLET PO SCH ×3 (06:36→21:14)
[2020-02-27] MEDS: DEXTROSE 5% WATER 1,000 ML IV SCH ×3 (06:37→21:13)
[2020-02-27 07:47] LABS: PHOSPHORUS 2.6 mg/dL (2.5-4.9)
[2020-02-27 07:59] LABS: HEMATOCRIT. 24.8 % (42.0-52.0); HEMOGLOBIN. 8.6 g/dL (14.0-18.0); MEAN CORPUSCULAR HEMOGLOBIN 32.6 pg (28.0-32.0); MEAN PLATELET VOLUME 10.4 fl (7.4-10.4); PLATELET 85 x1000/uL (130-400); RED BLOOD CELL COUNT 2.64 mill/uL (4.7-6.1); RED CELL DISTRIBUTION WIDTH 17.1 % (11.6-14.6)
[2020-02-27 08:00] VITALS: BP 97/58
[2020-02-27] MEDS ORDERED: NON FORMULARY PATIENT HOME MED PO SCH (09:00)
[2020-02-27] MEDS ORDERED: DOVATO PO SCH (09:00)
[2020-02-27] MEDS: POTASSIUM CHLORIDE 20MEQ TABLET SR PO SCH ×3 (10:19→21:14)
[2020-02-27] MEDS: ATOVAQUONE 750MG/5ML PACKET PO SCH (10:19)
[2020-02-27 12:00] VITALS: BP_SYST 100; BP_SYST 101; BP_DIAS 59; BP_DIAS 60
[2020-02-27] MEDS ORDERED: LOPERAMIDE HCL 2MG CAPSULE PO PRN (13:45)
[2020-02-27] MEDS ORDERED: LOPERAMIDE HCL 2MG CAPSULE PO NR (14:00)
[2020-02-27 16:00] VITALS: BP 101/61
[2020-02-27] MEDS: LEVOFLOXACIN 500MG PREMIX 100 ML IV SCH (16:23)
[2020-02-27] MEDS: FAMOTIDINE 20MG/2ML VIAL IV SCH (16:23)
[2020-02-27 17:18] LABS: NUCLEATED RED BLOOD CELLS 3 /100 WBC; PLATELET ESTIMATE DECREASED
[2020-02-27 20:00] VITALS: BP 97/49
[2020-02-28] VITALS (36 sets, daily range): BP systolic 51–114; BP diastolic 23–76
[2020-02-28] MEDS ORDERED: POTASSIUM CHLORIDE INJ 40 MEQ in DEXT 5% WATER 250 ML IV NR ×2 (01:00→18:30)
[2020-02-28] MEDS: DIPHENHYDRAMINE 50MG/ML VIAL IV PRN (01:36)
[2020-02-28] MEDS: DEXTROSE 5% WATER 1,000 ML IV SCH ×4 (03:22→22:56)
[2020-02-28] MEDS: NYSTATIN 100,000 UNITS/ML 5ML UDC SSW SCH ×4 (05:03→19:17)
[2020-02-28] MEDS: METRONIDAZOLE 500 MG PREMIX 100 ML IV SCH ×3 (05:03→21:33)
[2020-02-28 06:34] LABS: PHOSPHORUS 1.9 mg/dL (2.5-4.9)
[2020-02-28 06:41] LABS: HEMATOCRIT. 23.3 % (42.0-52.0); HEMOGLOBIN. 7.9 g/dL (14.0-18.0); MEAN CORPUSCULAR HEMOGLOBIN 31.1 pg (28.0-32.0); MEAN CORPUSCULAR VOLUME 91.5 fL (80.0-94.0); MEAN PLATELET VOLUME 10.8 fl (7.4-10.4); PLATELET 70 x1000/uL (130-400); RED BLOOD CELL COUNT 2.55 mill/uL (4.7-6.1); RED CELL DISTRIBUTION WIDTH 16.7 % (11.6-14.6)
[2020-02-28] MEDS: POTASSIUM CHLORIDE 20MEQ TABLET SR PO SCH ×2 (08:43→21:33)
[2020-02-28] MEDS: ATOVAQUONE 750MG/5ML PACKET PO SCH (08:44)
[2020-02-28] MEDS ORDERED: POTASSIUM CHLORIDE INJ 60 MEQ in DEXT 5% WATER 500 ML IV SCH (09:00)
[2020-02-28 09:54] LABS: NUCLEATED RED BLOOD CELLS 5 /100 WBC; PLATELET ESTIMATE DECREASED
[2020-02-28] MEDS ORDERED: ALBUMIN HUMAN 25GM/100ML (25%) IV NR (10:30)
[2020-02-28] MEDS ORDERED: SODIUM CHLORIDE 0.9% 500 ML IV SCH (10:30)
[2020-02-28] MEDS ORDERED: LEVOFLOXACIN 750MG PREMIX 150 ML IV SCH (11:00)
[2020-02-28] MEDS ORDERED: LIDOCAINE HCL 1% 20ML VIAL (Pyxis) INJ ONE (13:36)
[2020-02-28 13:42] LABS: BG BASE EXCESS -12.2 mmol/L (-2.0-2.0); BG CARBOXYHEMOGLOBIN 0.2 % (0.5-1.5); BG DEOXYHEMOGLOBIN 1.6 % (0.0-5.0); BG FRACTION INSPIRED OXYGEN 44; BG HCO3 ACT 8.5 mmol/L (22.0-26.0); BG METHEMOGLOBIN 0.1 % (0.0-1.5); BG OXYGEN SATURATION 98.4 % (92.0-98.5); BG OXYHEMOGLOBIN 98.1 % (94.0-97.0); BG PCO2 10.7 mmHg (35.0-45.0); BG PH 7.518 (7.350-7.450); BG PO2 184.4 mmHg (75.0-100.0); BG SAMPLE SITE RIGHT RADIAL; BG TOTAL HEMOGLOBIN 8.7 g/dL (12.0-18.0); BG VENT MODE NASAL CANNULA
[2020-02-28] MEDS ORDERED: SODIUM CHLORIDE 0.9% 500 ML IV ONE (13:45)
[2020-02-28] MEDS ORDERED: SODIUM BICARBONATE 8.4% 1 MEQ/ML 50ML SYR IV SCH ×2 (14:30)
[2020-02-28] MEDS: PHENYLEPHRINE 100 MG in DEXT 5% WATER 240 ML IV PRN ×2 (14:37→22:56)
[2020-02-28] MEDS ORDERED: PHENYLEPHRINE HCL 0.5% 15ML NASAL SPRAY BOTHNSTRLS NR (15:30)
[2020-02-28 16:08] LABS: TOTAL IRON BINDING CAPACITY 94 ug/dL (250-450)
[2020-02-28 16:23] LABS: CHLORIDE 126 mEq/L (98-107)
[2020-02-28 16:29] LABS: PHOSPHORUS 3.6 mg/dL (2.5-4.9)
[2020-02-28 17:09] LABS: VITAMIN B12 SERUM >2000 pg/mL pg/mL (211-911)
[2020-02-28] MEDS: FAMOTIDINE 20MG/2ML VIAL IV SCH (18:38)
[2020-02-28 21:31] LABS: BG BASE EXCESS -10.7 mmol/L (-2.0-2.0); BG CARBOXYHEMOGLOBIN 0.1 % (0.5-1.5); BG FRACTION INSPIRED OXYGEN 44; BG HCO3 ACT 10.4 mmol/L (22.0-26.0); BG OXYHEMOGLOBIN 97.9 % (94.0-97.0); BG PCO2 14.4 mmHg (35.0-45.0); BG PH 7.477 (7.350-7.450); BG PO2 145.2 mmHg (75.0-100.0); BG SAMPLE SITE RIGHT RADIAL; BG TOTAL HEMOGLOBIN 10.7 g/dL (12.0-18.0); BG VENT MODE NASAL CANNULA
[2020-02-28] MEDS ORDERED: LORAZEPAM 2MG/ML CPJ IV PRN (22:45)
[2020-02-28] MEDS ORDERED: NOREPINEPHRINE 32 MG in DEXT 5% WATER 218 ML IV PRN (22:45)
[2020-02-29] VITALS (89 sets, daily range): BP systolic 89–144; BP diastolic 29–131
[2020-02-29] MEDS: NYSTATIN 100,000 UNITS/ML 5ML UDC SSW SCH ×4 (00:07→18:19)
[2020-02-29] MEDS ORDERED: POTASSIUM CHLORIDE INJ 60 MEQ in DEXT 5% WATER 300 ML IV NR (01:00)
[2020-02-29] MEDS ORDERED: POTASSIUM CHLORIDE IV NR (01:00)
[2020-02-29] MEDS ORDERED: DEXT 5% IV NR (01:00)
[2020-02-29] MEDS ORDERED: WATER IV NR (01:00)
[2020-02-29] MEDS: METRONIDAZOLE 500 MG PREMIX 100 ML IV SCH ×2 (05:23→18:19)
[2020-02-29 05:44] LABS: HEMATOCRIT. 24.8 % (42.0-52.0); HEMOGLOBIN. 8.2 g/dL (14.0-18.0); MEAN CORPUSCULAR HEMOGLOBIN 30.2 pg (28.0-32.0); MEAN CORPUSCULAR VOLUME 91.3 fL (80.0-94.0); PLATELET 66 x1000/uL (130-400); RED BLOOD CELL COUNT 2.71 mill/uL (4.7-6.1); RED CELL DISTRIBUTION WIDTH 16.5 % (11.6-14.6)
[2020-02-29 08:06] LABS: NUCLEATED RED BLOOD CELLS 7 /100 WBC; PLATELET ESTIMATE DECREASED
[2020-02-29] MEDS: POTASSIUM CHLORIDE 20MEQ TABLET SR PO SCH ×2 (08:32→21:17)
[2020-02-29] MEDS: DEXTROSE 5% WATER 1,000 ML IV SCH ×2 (08:42→21:17)
[2020-02-29] MEDS: PHENYLEPHRINE 100 MG in DEXT 5% WATER 240 ML IV PRN ×2 (08:48→21:17)
[2020-02-29] MEDS ORDERED: ALBUMIN HUMAN 25GM/100ML (25%) IV SCH (09:00)
[2020-02-29 09:37] LABS: PHOSPHORUS 2.3 mg/dL (2.5-4.9)
[2020-02-29] MEDS: MIDODRINE HCL 5MG TABLET PO SCH ×3 (09:38→18:19)
[2020-02-29] MEDS ORDERED: POTASSIUM CHLORIDE INJ 40 MEQ in DEXT 5% WATER 250 ML IV SCH (10:00)
[2020-02-29] MEDS: ATOVAQUONE 750MG/5ML PACKET PO SCH (10:51)
[2020-02-29] MEDS ORDERED: SODIUM BICARBONATE 4% (2.4MEQ) 5ML VIAL IV ONE (10:54)
[2020-02-29] MEDS ORDERED: LIDOCAINE HCL 1% 20ML VIAL (Pyxis) INJ ONE (10:54)
[2020-02-29] MEDS ORDERED: POTASSIUM PHOS,M-BASIC-D-BASIC 15 MMOL in DEXT 5% WATER 250 ML IV SCH (12:00)
[2020-02-29] MEDS ORDERED: AZTREONAM 500 MG in DEXTROSE 5% WATER 50 ML IV SCH (13:30)
[2020-02-29] MEDS: AZTREONAM 1G in DEXTROSE 5% WATER 50ML IV SCH ×2 (15:00→21:17)
[2020-02-29 17:58] LABS: D-DIMER 8.01 mg/L FEU (<0.50); INR 1.5; PARTIAL THROMBOPLASTIN TIME 36.6 sec (23.4-31.0); PROTHROMBIN TIME 15.6 sec (9.6-11.0)
[2020-02-29] MEDS: FAMOTIDINE 20MG/2ML VIAL IV SCH (18:19)
[2020-03-01] VITALS (85 sets, daily range): BP systolic 75–116; BP diastolic 33–75
[2020-03-01] MEDS: AZTREONAM 1G in DEXTROSE 5% WATER 50ML IV SCH ×3 (05:14→21:36)
[2020-03-01] MEDS: DEXTROSE 5% WATER 1,000 ML IV SCH ×2 (05:14→16:31)
[2020-03-01] MEDS: NYSTATIN 100,000 UNITS/ML 5ML UDC SSW SCH ×4 (05:15→18:19)
[2020-03-01] MEDS: METRONIDAZOLE 500 MG PREMIX 100 ML IV SCH ×2 (05:16→18:19)
[2020-03-01 06:18] LABS: HEMATOCRIT. 23.7 % (42.0-52.0); MEAN CORPUSCULAR HEMOGLOBIN 30.7 pg (28.0-32.0); MEAN CORPUSCULAR VOLUME 90.8 fL (80.0-94.0); MEAN PLATELET VOLUME 12.1 fl (7.4-10.4); PLATELET 51 x1000/uL (130-400); RED BLOOD CELL COUNT 2.61 mill/uL (4.7-6.1); RED CELL DISTRIBUTION WIDTH 15.9 % (11.6-14.6)
[2020-03-01 06:27] LABS: PHOSPHORUS 3.2 mg/dL (2.5-4.9)
[2020-03-01 06:52] LABS: INR 1.5; PROTHROMBIN TIME 15.6 sec (9.6-11.0)
[2020-03-01] MEDS: POTASSIUM CHLORIDE 20MEQ TABLET SR PO SCH ×2 (08:45→21:00)
[2020-03-01] MEDS: MIDODRINE HCL 5MG TABLET PO SCH ×3 (08:58→16:29)
[2020-03-01] MEDS: ATOVAQUONE 750MG/5ML PACKET PO SCH (10:15)
[2020-03-01] MEDS: FAMOTIDINE 20MG/2ML VIAL IV SCH (16:31)
[2020-03-01] MEDS ORDERED: TOTAL PARENTERAL NUTRITION 2,000 ML IV SCH (21:00)
[2020-03-01 21:05] LABS: NUCLEATED RED BLOOD CELLS 6 /100 WBC; PLATELET ESTIMATE MARKEDLY DECREASED
[2020-03-02] VITALS (99 sets, daily range): BP systolic 83–118; BP diastolic 25–83
[2020-03-02] MEDS: AZTREONAM 1G in DEXTROSE 5% WATER 50ML IV SCH ×3 (05:14→21:38)
[2020-03-02] MEDS: PHENYLEPHRINE 100 MG in DEXT 5% WATER 240 ML IV PRN ×2 (05:14→18:51)
[2020-03-02] MEDS: METRONIDAZOLE 500 MG PREMIX 100 ML IV SCH ×2 (05:14→18:50)
[2020-03-02] MEDS: NYSTATIN 100,000 UNITS/ML 5ML UDC SSW SCH ×3 (05:38→13:47)
[2020-03-02 06:19] LABS: MEAN CORPUSCULAR HEMOGLOBIN 31.6 pg (28.0-32.0); MEAN CORPUSCULAR VOLUME 92.2 fL (80.0-94.0); RED BLOOD CELL COUNT 1.88 mill/uL (4.7-6.1); RED CELL DISTRIBUTION WIDTH 16.4 % (11.6-14.6)
[2020-03-02 06:42] LABS: PHOSPHORUS 3.4 mg/dL (2.5-4.9)
[2020-03-02 07:07] LABS: HEMOGLOBIN. 5.9 g/dL (14.0-18.0)
[2020-03-02 07:08] LABS: HEMATOCRIT. 17.3 % (42.0-52.0); PLATELET 43 x1000/uL (130-400)
[2020-03-02] MEDS ORDERED: PHYTONADIONE 10MG/ML AMP SUBCUT SCH (07:30)
[2020-03-02] MEDS: POTASSIUM CHLORIDE 20MEQ TABLET SR PO SCH (08:39)
[2020-03-02] MEDS: ATOVAQUONE 750MG/5ML PACKET PO SCH (08:39)
[2020-03-02] MEDS: MIDODRINE HCL 5MG TABLET PO SCH ×3 (08:39→17:25)
[2020-03-02 09:05] LABS: NUCLEATED RED BLOOD CELLS 5 /100 WBC; PLATELET ESTIMATE MARKEDLY DECREASED
[2020-03-02] MEDS: FAMOTIDINE 20MG/2ML VIAL IV SCH (17:25)
[2020-03-02] MEDS: TOTAL PARENTERAL NUTRITION 1,800 ML IV SCH (20:49)
[2020-03-02 20:50] LABS: HEMOGLOBIN 6.2 g/dL (14.0-18.0)
[2020-03-02 20:51] LABS: HEMATOCRIT 17.8 % (42.0-52.0)
[2020-03-03] VITALS (87 sets, daily range): BP systolic 90–121; BP diastolic 43–80
[2020-03-03] MEDS: ACETAMINOPHEN 325MG TABLET PO PRN (00:10)
[2020-03-03] MEDS: METRONIDAZOLE 500 MG PREMIX 100 ML IV SCH ×2 (06:33→17:04)
[2020-03-03] MEDS: AZTREONAM 1G in DEXTROSE 5% WATER 50ML IV SCH ×3 (06:33→22:04)
[2020-03-03 06:44] LABS: HEMATOCRIT. 25.5 % (42.0-52.0); HEMOGLOBIN. 9.1 g/dL (14.0-18.0); MEAN CORPUSCULAR HEMOGLOBIN 34.1 pg (28.0-32.0); MEAN CORPUSCULAR VOLUME 95.7 fL (80.0-94.0); MEAN PLATELET VOLUME 10.5 fl (7.4-10.4); RED BLOOD CELL COUNT 2.67 mill/uL (4.7-6.1)
[2020-03-03 07:13] LABS: PLATELET 49 x1000/uL (130-400)
[2020-03-03 07:27] LABS: PHOSPHORUS 2.7 mg/dL (2.5-4.9)
[2020-03-03] MEDS: ATOVAQUONE 750MG/5ML PACKET PO SCH (08:16)
[2020-03-03] MEDS: MIDODRINE HCL 5MG TABLET PO SCH ×3 (08:16→17:05)
[2020-03-03 10:36] LABS: PLATELET ESTIMATE MARKEDLY DECREASED
[2020-03-03] MEDS ORDERED: POTASSIUM CHLORIDE INJ 40 MEQ in DEXT 5% WATER 250 ML IV NR (11:30)
[2020-03-03 12:15] LABS: HEMATOCRIT 24.6 % (42.0-52.0); HEMOGLOBIN 8.8 g/dL (14.0-18.0)
[2020-03-03] MEDS: FAMOTIDINE 20MG/2ML VIAL IV SCH (17:04)
[2020-03-03 18:31] LABS: HEMATOCRIT 24.2 % (42.0-52.0); HEMOGLOBIN 8.4 g/dL (14.0-18.0)
[2020-03-03] MEDS: TOTAL PARENTERAL NUTRITION 1,800 ML IV SCH (21:59)
[2020-03-04] VITALS (73 sets, daily range): BP systolic 25–122; BP diastolic 14–81
[2020-03-04 00:45] LABS: HEMATOCRIT 23.5 % (42.0-52.0); HEMOGLOBIN 8.2 g/dL (14.0-18.0)
[2020-03-04 05:57] LABS: MEAN CORPUSCULAR HEMOGLOBIN 33.7 pg (28.0-32.0); MEAN CORPUSCULAR VOLUME 92.6 fL (80.0-94.0); MEAN PLATELET VOLUME 11.2 fl (7.4-10.4); RED CELL DISTRIBUTION WIDTH 15.2 % (11.6-14.6)
[2020-03-04 06:08] LABS: PHOSPHORUS 2.4 mg/dL (2.5-4.9)
[2020-03-04] MEDS: METRONIDAZOLE 500 MG PREMIX 100 ML IV SCH ×3 (06:10→21:35)
[2020-03-04] MEDS: AZTREONAM 1G in DEXTROSE 5% WATER 50ML IV SCH ×3 (06:10→21:34)
[2020-03-04] MEDS ORDERED: DEXTROSE 50% WATER 50ML SYRINGE IV PRN ×2 (06:30)
[2020-03-04 06:43] LABS: HEMOGLOBIN. 6.7 g/dL (14.0-18.0)
[2020-03-04 06:45] LABS: HEMATOCRIT. 18.5 % (42.0-52.0); PLATELET 34 x1000/uL (130-400)
[2020-03-04] MEDS ORDERED: POTASSIUM CHLORIDE INJ 40 MEQ in DEXT 5% WATER 250 ML IV NR (08:00)
[2020-03-04 08:27] LABS: NUCLEATED RED BLOOD CELLS 2 /100 WBC
[2020-03-04 08:29] LABS: PLATELET ESTIMATE MARKEDLY DECREASED
[2020-03-04] MEDS: ATOVAQUONE 750MG/5ML PACKET PO SCH (08:38)
[2020-03-04] MEDS: MIDODRINE HCL 5MG TABLET PO SCH ×3 (08:39→18:12)
[2020-03-04] MEDS: DEXTROSE 5% WATER 1,000 ML IV SCH (15:18)
[2020-03-04] MEDS: POTASSIUM PHOS,M-BASIC-D-BASIC 30 MMOL in DEXT 5% WATER 500 ML IV NR ×2 (15:19→18:14)
[2020-03-04 17:50] LABS: HEMATOCRIT 28.9 % (42.0-52.0); HEMOGLOBIN 9.8 g/dL (14.0-18.0)
[2020-03-04] MEDS: FAMOTIDINE 20MG/2ML VIAL IV SCH (18:13)
[2020-03-04] MEDS ORDERED: TOTAL PARENTERAL NUTRITION 1,800 ML IV SCH (21:00)
[2020-03-05] VITALS (54 sets, daily range): BP systolic 116–142; BP diastolic 67–94
[2020-03-05 00:49] LABS: HEMATOCRIT 27.1 % (42.0-52.0); HEMOGLOBIN 9.4 g/dL (14.0-18.0)
[2020-03-05 06:20] LABS: HEMATOCRIT. 26.4 % (42.0-52.0); HEMOGLOBIN. 9.3 g/dL (14.0-18.0); MEAN CORPUSCULAR HEMOGLOBIN 31.5 pg (28.0-32.0); MEAN CORPUSCULAR VOLUME 89.5 fL (80.0-94.0); RED BLOOD CELL COUNT 2.95 mill/uL (4.7-6.1); RED CELL DISTRIBUTION WIDTH 15.2 % (11.6-14.6)
[2020-03-05 06:42] LABS: PLATELET 33 x1000/uL (130-400)
[2020-03-05] MEDS: METRONIDAZOLE 500 MG PREMIX 100 ML IV SCH ×3 (06:54→16:52)
[2020-03-05] MEDS: AZTREONAM 1G in DEXTROSE 5% WATER 50ML IV SCH ×3 (06:55→22:59)
[2020-03-05 07:24] LABS: PHOSPHORUS 3.3 mg/dL (2.5-4.9)
[2020-03-05] MEDS: MIDODRINE HCL 5MG TABLET PO SCH ×3 (08:13→16:53)
[2020-03-05] MEDS: ATOVAQUONE 750MG/5ML PACKET PO SCH (08:14)
[2020-03-05 09:00] LABS: PLATELET ESTIMATE MARKEDLY DECREASED
[2020-03-05 09:09] LABS: IMMUNOGLOBULIN A 1371 mg/dL (90-386); IMMUNOGLOBULIN G 1101 mg/dL (603-1613); IMMUNOGLOBULIN M 316 mg/dL (20-172)
[2020-03-05] MEDS ORDERED: POTASSIUM CHLORIDE INJ 60 MEQ in SODIUM CHLORIDE 0.9% 500 ML IV SCH (10:00)
[2020-03-05] MEDS: MAGNESIUM OXIDE 400MG TABLET PO SCH (11:31)
[2020-03-05] MEDS ORDERED: DIATR MEGLU/DIATRIZOATE SOLN 120ML ONE (11:57)
[2020-03-05] MEDS: DEXTROSE 5% WATER 1,000 ML IV SCH (12:45)
[2020-03-05] MEDS: BLOOD SUGAR DIAGNOSTIC STRIP TEST SCH ×2 (12:58→18:58)
[2020-03-05] MEDS ORDERED: POTASSIUM CHLORIDE INJ 40 MEQ in DEXT 5% WATER 250 ML IV SCH (16:00)
[2020-03-05] MEDS: FAMOTIDINE 20MG/2ML VIAL IV SCH (16:53)
[2020-03-05 19:05] LABS: HEMATOCRIT 26.4 % (42.0-52.0); HEMOGLOBIN 9.2 g/dL (14.0-18.0)
[2020-03-05] MEDS ORDERED: TOTAL PARENTERAL NUTRITION 1,800 ML IV SCH (21:00)
[2020-03-06] VITALS (55 sets, daily range): BP systolic 99–145; BP diastolic 70–94
[2020-03-06 01:06] LABS: HEMATOCRIT 25.6 % (42.0-52.0); HEMOGLOBIN 8.8 g/dL (14.0-18.0)
[2020-03-06 05:54] LABS: HEMATOCRIT. 27.5 % (42.0-52.0); HEMOGLOBIN. 9.5 g/dL (14.0-18.0); MEAN CORPUSCULAR HEMOGLOBIN 31.9 pg (28.0-32.0); MEAN CORPUSCULAR VOLUME 92.2 fL (80.0-94.0); MEAN PLATELET VOLUME 11.2 fl (7.4-10.4); RED BLOOD CELL COUNT 2.98 mill/uL (4.7-6.1); RED CELL DISTRIBUTION WIDTH 15.6 % (11.6-14.6)
[2020-03-06] MEDS: BLOOD SUGAR DIAGNOSTIC STRIP TEST SCH ×4 (06:00→18:05)
[2020-03-06 06:03] LABS: PLATELET 44 x1000/uL (130-400)
[2020-03-06 06:06] LABS: PHOSPHORUS 2.3 mg/dL (2.5-4.9)
[2020-03-06] MEDS: METRONIDAZOLE 500 MG PREMIX 100 ML IV SCH ×2 (06:19→18:57)
[2020-03-06] MEDS: AZTREONAM 1G in DEXTROSE 5% WATER 50ML IV SCH ×2 (06:20→13:22)
[2020-03-06 07:09] LABS: PLATELET ESTIMATE MARKEDLY DECREASED
[2020-03-06] MEDS: MAGNESIUM OXIDE 400MG TABLET PO SCH (09:01)
[2020-03-06] MEDS: MIDODRINE HCL 5MG TABLET PO SCH ×3 (09:01→18:17)
[2020-03-06] MEDS: ATOVAQUONE 750MG/5ML PACKET PO SCH (09:02)
[2020-03-06] MEDS ORDERED: POTASSIUM CHLORIDE INJ 40 MEQ in DEXT 5% WATER 250 ML IV SCH (10:00)
[2020-03-06] MEDS ORDERED: POTASSIUM PHOS,M-BASIC-D-BASIC 15 MMOL in DEXT 5% WATER 245 ML IV ONE ×2 (11:00→14:00)
[2020-03-06 12:28] LABS: HEMATOCRIT 22.3 % (42.0-52.0); HEMOGLOBIN 7.6 g/dL (14.0-18.0)
[2020-03-06] MEDS: DEXTROSE 5% WATER 1,000 ML IV SCH (12:40)
[2020-03-06 12:42] LABS: INR 1.1
[2020-03-06] MEDS ORDERED: LIDOCAINE HCL 1% 20ML VIAL (Pyxis) INJ ONE (13:34)
[2020-03-06] MEDS ORDERED: IOHEXOL-300 100 ML BOTTLE ONE (13:34)
[2020-03-06] MEDS ORDERED: SODIUM BICARBONATE 4% (2.4MEQ) 5ML VIAL IV ONE (13:34)
[2020-03-06] MEDS ORDERED: IODIXANOL 320MG/ML 100 ML BOTTLE IV ONE (13:35)
[2020-03-06] MEDS ORDERED: IOHEXOL-300 50 ML BOTTLE IV ONE (13:52)
[2020-03-06] MEDS ORDERED: POTASSIUM CHLORIDE INJ 40 MEQ in DEXT 5% WATER 250 ML IV ONE (14:00)
[2020-03-06] MEDS: FAMOTIDINE 20MG/2ML VIAL IV SCH (18:17)
[2020-03-06] MEDS ORDERED: TOTAL PARENTERAL NUTRITION 1,800 ML IV SCH (21:00)
[2020-03-06 22:04] LABS: HEMOGLOBIN 8.3 g/dL (14.0-18.0)
[2020-03-07] VITALS (12 sets, daily range): BP systolic 118–131; BP diastolic 73–82
[2020-03-07] MEDS: BLOOD SUGAR DIAGNOSTIC STRIP TEST SCH ×5 (00:42→23:28)
[2020-03-07 00:52] LABS: HEMATOCRIT 26.6 % (42.0-52.0); HEMOGLOBIN 9.2 g/dL (14.0-18.0)
[2020-03-07] MEDS: AZTREONAM 1G in DEXTROSE 5% WATER 50ML IV SCH ×2 (02:00→06:44)
[2020-03-07] MEDS: METRONIDAZOLE 500 MG PREMIX 100 ML IV SCH ×2 (05:42→17:21)
[2020-03-07 06:39] LABS: HEMATOCRIT. 25.7 % (42.0-52.0); MEAN PLATELET VOLUME 10.9 fl (7.4-10.4); PLATELET 69 x1000/uL (130-400); RED BLOOD CELL COUNT 2.82 mill/uL (4.7-6.1); RED CELL DISTRIBUTION WIDTH 15.2 % (11.6-14.6)
[2020-03-07 06:58] LABS: CHLORIDE 131 mEq/L (98-107)
[2020-03-07 07:04] LABS: PHOSPHORUS 2.3 mg/dL (2.5-4.9)
[2020-03-07] MEDS: DEXTROSE 5% WATER 1,000 ML IV SCH ×2 (08:50→22:42)
[2020-03-07] MEDS: MAGNESIUM OXIDE 400MG TABLET PO SCH (08:56)
[2020-03-07] MEDS: MIDODRINE HCL 5MG TABLET PO SCH ×3 (08:56→17:00)
[2020-03-07] MEDS ORDERED: POTASSIUM PHOS,M-BASIC-D-BASIC 15 MMOL in DEXT 5% WATER 245 ML IV NR (10:00)
[2020-03-07 10:36] LABS: PLATELET ESTIMATE DECREASED
[2020-03-07] MEDS: ATOVAQUONE 750MG/5ML PACKET PO SCH (12:24)
[2020-03-07] MEDS ORDERED: POTASSIUM CHLORIDE INJ 40 MEQ in DEXT 5% WATER 250 ML IV NR (14:00)
[2020-03-07 15:52] LABS: HEMATOCRIT 24.1 % (42.0-52.0); HEMOGLOBIN 8.4 g/dL (14.0-18.0)
[2020-03-07] MEDS: FAMOTIDINE 20MG/2ML VIAL IV SCH (17:21)
[2020-03-07] MEDS ORDERED: TOTAL PARENTERAL NUTRITION 1,800 ML IV SCH (21:00)
[2020-03-08] VITALS (12 sets, daily range): BP systolic 125–133; BP diastolic 76–91
[2020-03-08] MEDS: METRONIDAZOLE 500 MG PREMIX 100 ML IV SCH ×2 (06:01→17:39)
[2020-03-08] MEDS: MAGNESIUM OXIDE 400MG TABLET PO SCH (09:33)
[2020-03-08] MEDS: MIDODRINE HCL 5MG TABLET PO SCH ×3 (09:34→17:39)
[2020-03-08] MEDS: ATOVAQUONE 750MG/5ML PACKET PO SCH (09:34)
[2020-03-08 11:00] LABS: HEMATOCRIT. 22.6 % (42.0-52.0); HEMOGLOBIN. 7.7 g/dL (14.0-18.0); MEAN CORPUSCULAR HEMOGLOBIN 30.3 pg (28.0-32.0); MEAN CORPUSCULAR VOLUME 89.3 fL (80.0-94.0); MEAN PLATELET VOLUME 10.9 fl (7.4-10.4); PLATELET 58 x1000/uL (130-400); RED BLOOD CELL COUNT 2.53 mill/uL (4.7-6.1); RED CELL DISTRIBUTION WIDTH 15.4 % (11.6-14.6)
[2020-03-08 11:26] LABS: CHLORIDE 132 mEq/L (98-107)
[2020-03-08 11:34] LABS: PHOSPHORUS 2.9 mg/dL (2.5-4.9)
[2020-03-08] MEDS: BLOOD SUGAR DIAGNOSTIC STRIP TEST SCH ×2 (12:32→18:04)
[2020-03-08] MEDS ORDERED: SODIUM BICARBONATE 50 MEQ in DEXTROSE 5% WATER 1,000 ML IV SCH (15:00)
[2020-03-08] MEDS ORDERED: POTASSIUM CHLORIDE INJ 30 MEQ in DEXT 5% WATER 250 ML IV NR (15:00)
[2020-03-08 15:30] LABS: PLATELET ESTIMATE DECREASED
[2020-03-08] MEDS: DEXTROSE 5% WATER 1,000 ML IV SCH (16:04)
[2020-03-08] MEDS: ACETAMINOPHEN 325MG TABLET PO PRN (16:18)
[2020-03-08] MEDS: WATER IV NR ×2 (17:39→23:00)
[2020-03-08] MEDS: POTASSIUM ACETATE IV NR ×2 (17:39→23:00)
[2020-03-08] MEDS: DEXT 5% IV NR ×2 (17:39→23:00)
[2020-03-08] MEDS: METOCLOPRAMIDE HCL 10MG/2ML VIAL IV SCH (17:40)
[2020-03-08] MEDS: FAMOTIDINE 20MG/2ML VIAL IV SCH (17:40)
[2020-03-08 19:24] LABS: HEMATOCRIT 21.7 % (42.0-52.0); HEMOGLOBIN 7.3 g/dL (14.0-18.0)
[2020-03-08] MEDS ORDERED: TOTAL PARENTERAL NUTRITION 1,800 ML IV SCH (21:00)
[2020-03-09] VITALS (16 sets, daily range): BP systolic 117–141; BP diastolic 68–94
[2020-03-09] MEDS: BLOOD SUGAR DIAGNOSTIC STRIP TEST SCH ×4 (00:23→17:35)
[2020-03-09] MEDS: METOCLOPRAMIDE HCL 10MG/2ML VIAL IV SCH ×4 (00:23→17:22)
[2020-03-09 06:21] LABS: HEMATOCRIT. 29.6 % (42.0-52.0); HEMOGLOBIN. 10.3 g/dL (14.0-18.0); MEAN CORPUSCULAR HEMOGLOBIN 32.4 pg (28.0-32.0); MEAN CORPUSCULAR VOLUME 93.2 fL (80.0-94.0); MEAN PLATELET VOLUME 10.8 fl (7.4-10.4); PLATELET 65 x1000/uL (130-400); RED BLOOD CELL COUNT 3.18 mill/uL (4.7-6.1); RED CELL DISTRIBUTION WIDTH 15.7 % (11.6-14.6)
[2020-03-09] MEDS: MIDODRINE HCL 5MG TABLET PO SCH ×2 (08:27→12:01)
[2020-03-09] MEDS: MAGNESIUM OXIDE 400MG TABLET PO SCH (08:27)
[2020-03-09] MEDS: ATOVAQUONE 750MG/5ML PACKET PO SCH (08:28)
[2020-03-09] MEDS: DEXTROSE 5% WATER 1,000 ML IV SCH (08:28)
[2020-03-09 08:56] LABS: CHLORIDE 133 mEq/L (98-107)
[2020-03-09 09:09] LABS: PHOSPHORUS 2.7 mg/dL (2.5-4.9)
[2020-03-09] MEDS ORDERED: POTASSIUM CHLORIDE INJ 40 MEQ in DEXT 5% WATER 250 ML IV ONE (11:00)
[2020-03-09 13:02] LABS: ATYPICAL LYMPHOCYTES 3
[2020-03-09 13:03] LABS: PLATELET ESTIMATE DECREASED
[2020-03-09 13:50] LABS: BG CARBOXYHEMOGLOBIN 0.3 % (0.5-1.5); BG DEOXYHEMOGLOBIN 2.7 % (0.0-5.0); BG FRACTION INSPIRED OXYGEN 21; BG HCO3 ACT 13.6 mmol/L (22.0-26.0); BG METHEMOGLOBIN 0.3 % (0.0-1.5); BG OXYGEN SATURATION 97.3 % (92.0-98.5); BG OXYHEMOGLOBIN 96.7 % (94.0-97.0); BG PCO2 20.3 mmHg (35.0-45.0); BG PH 7.443 (7.350-7.450); BG PO2 105.9 mmHg (75.0-100.0); BG SAMPLE SITE RIGHT RADIAL; BG TOTAL HEMOGLOBIN 9.2 g/dL (12.0-18.0); BG VENT MODE ROOM AIR
[2020-03-09] MEDS: FAMOTIDINE 20MG/2ML VIAL IV SCH (17:21)
[2020-03-09] MEDS: NITROGLYCERIN OINT 1GM/INCH UDPKT TD SCH (17:23)
[2020-03-09] MEDS ORDERED: NITROGLYCERIN 0.1MG/HR PATCH TOP SCH (18:00)
[2020-03-09] MEDS: TOTAL PARENTERAL NUTRITION 1,000 ML IV SCH (21:22)
[2020-03-09] MEDS: MORPHINE SULFATE 2 MG/ML CPJ (NOT FOR IM USE) IV PRN (22:33)
[2020-03-10] VITALS (12 sets, daily range): BP systolic 91–133; BP diastolic 53–97
[2020-03-10] MEDS: METOCLOPRAMIDE HCL 10MG/2ML VIAL IV SCH ×4 (00:33→17:14)
[2020-03-10] MEDS: BLOOD SUGAR DIAGNOSTIC STRIP TEST SCH ×4 (00:34→17:24)
[2020-03-10] MEDS: IPRATROPIUM/ALBUTEROL 0.5-3(2.5)MG/3ML NEB HHN SCH ×4 (00:46→20:58)
[2020-03-10] MEDS: ACETAMINOPHEN 325MG TABLET PO PRN (01:20)
[2020-03-10] MEDS: MORPHINE SULFATE 2 MG/ML CPJ (NOT FOR IM USE) IV PRN (03:25)
[2020-03-10] MEDS: NITROGLYCERIN OINT 1GM/INCH UDPKT TD SCH ×2 (05:21→17:14)
[2020-03-10] MEDS: METOPROLOL TARTRATE 5MG/5ML VIAL IV PRN ×2 (08:33→16:51)
[2020-03-10] MEDS: MAGNESIUM OXIDE 400MG TABLET PO SCH (08:44)
[2020-03-10] MEDS: ATOVAQUONE 750MG/5ML PACKET PO SCH (08:45)
[2020-03-10 08:55] LABS: HEMATOCRIT. 25.4 % (42.0-52.0); HEMOGLOBIN. 8.9 g/dL (14.0-18.0); MEAN CORPUSCULAR HEMOGLOBIN 31.8 pg (28.0-32.0); MEAN CORPUSCULAR VOLUME 91.3 fL (80.0-94.0); MEAN PLATELET VOLUME 11.6 fl (7.4-10.4); RED BLOOD CELL COUNT 2.78 mill/uL (4.7-6.1); RED CELL DISTRIBUTION WIDTH 15.5 % (11.6-14.6)
[2020-03-10 09:00] LABS: CHLORIDE 137 mEq/L (98-107)
[2020-03-10 09:09] LABS: PLATELET 41 x1000/uL (130-400)
[2020-03-10 09:22] LABS: PHOSPHORUS 2.3 mg/dL (2.5-4.9)
[2020-03-10] MEDS ORDERED: POTASSIUM CHLORIDE 20MEQ/PACKET PO NR (10:30)
[2020-03-10] MEDS ORDERED: METOPROLOL TARTRATE 5MG/5ML VIAL IV NR (10:30)
[2020-03-10] MEDS: DEXTROSE 5% WATER 1,000 ML IV SCH (12:11)
[2020-03-10 12:53] LABS: PLATELET ESTIMATE MARKEDLY DECREASED
[2020-03-10] MEDS ORDERED: POTASSIUM PHOS,M-BASIC-D-BASIC 15 MMOL in DEXT 5% WATER 245 ML IV SCH (13:00)
[2020-03-10] MEDS: FAMOTIDINE 20MG/2ML VIAL IV SCH (17:00)
[2020-03-10] MEDS: TOTAL PARENTERAL NUTRITION 1,000 ML IV SCH (17:24)
[2020-03-10] MEDS: MIDODRINE HCL 2.5MG TABLET PO SCH (19:39)
[2020-03-10] MEDS: METOPROLOL TARTRATE 25MG TABLET PO SCH (19:39)
[2020-03-10] MEDS ORDERED: TOTAL PARENTERAL NUTRITION 1,300 ML IV SCH (21:00)
[2020-03-10] MEDS ORDERED: MORPHINE SULFATE 2 MG/ML CPJ (NOT FOR IM USE) IV PRN (22:00)
[2020-03-10] MEDS: LORAZEPAM 2MG/ML CPJ IV PRN (22:44)
[2020-03-11] VITALS (14 sets, daily range): BP systolic 94–121; BP diastolic 50–76
[2020-03-11] MEDS: METOCLOPRAMIDE HCL 10MG/2ML VIAL IV SCH ×4 (00:24→18:12)
[2020-03-11] MEDS ORDERED: METOPROLOL TARTRATE 25MG TABLET PO SCH (01:30)
[2020-03-11] MEDS: BLOOD SUGAR DIAGNOSTIC STRIP TEST SCH ×4 (06:00→18:12)
[2020-03-11] MEDS: MIDODRINE HCL 2.5MG TABLET PO SCH ×3 (06:53→21:34)
[2020-03-11] MEDS: NITROGLYCERIN OINT 1GM/INCH UDPKT TD SCH ×2 (06:55→18:12)
[2020-03-11 07:44] LABS: HEMATOCRIT. 28.6 % (42.0-52.0); HEMOGLOBIN. 9.9 g/dL (14.0-18.0); MEAN CORPUSCULAR HEMOGLOBIN 32.8 pg (28.0-32.0); MEAN CORPUSCULAR VOLUME 94.4 fL (80.0-94.0); MEAN PLATELET VOLUME 11.3 fl (7.4-10.4); RED BLOOD CELL COUNT 3.03 mill/uL (4.7-6.1); RED CELL DISTRIBUTION WIDTH 15.9 % (11.6-14.6)
[2020-03-11] MEDS: MAGNESIUM OXIDE 400MG TABLET PO SCH (08:28)
[2020-03-11] MEDS: METOPROLOL TARTRATE 25MG TABLET PO SCH ×2 (08:29→21:34)
[2020-03-11] MEDS: DEXTROSE 5% WATER 1,000 ML IV SCH (08:30)
[2020-03-11] MEDS: IPRATROPIUM/ALBUTEROL 0.5-3(2.5)MG/3ML NEB HHN SCH ×4 (08:32→20:28)
[2020-03-11] MEDS: ATOVAQUONE 750MG/5ML PACKET PO SCH (08:34)
[2020-03-11 09:56] LABS: PHOSPHORUS 2.9 mg/dL (2.5-4.9)
[2020-03-11 10:07] LABS: PLATELET ESTIMATE DECREASED
[2020-03-11 10:09] LABS: PLATELET 22 x1000/uL (130-400)
[2020-03-11] MEDS ORDERED: POTASSIUM CHLORIDE INJ 40 MEQ in DEXT 5% WATER 250 ML IV NR (12:00)
[2020-03-11] MEDS ORDERED: ALBUMIN HUMAN 25GM/100ML (25%) IV SCH (14:00)
[2020-03-11] MEDS ORDERED: TOTAL PARENTERAL NUTRITION 1,300 ML IV SCH (21:00)
[2020-03-12] VITALS (13 sets, daily range): BP systolic 93–133; BP diastolic 51–82
[2020-03-12] MEDS: BLOOD SUGAR DIAGNOSTIC STRIP TEST SCH ×4 (00:17→18:13)
[2020-03-12] MEDS: METOCLOPRAMIDE HCL 10MG/2ML VIAL IV SCH ×4 (00:17→18:13)
[2020-03-12] MEDS: IPRATROPIUM/ALBUTEROL 0.5-3(2.5)MG/3ML NEB HHN SCH ×4 (01:37→21:11)
[2020-03-12] MEDS: MIDODRINE HCL 2.5MG TABLET PO SCH ×3 (06:04→21:43)
[2020-03-12] MEDS: NITROGLYCERIN OINT 1GM/INCH UDPKT TD SCH ×2 (06:04→18:13)
[2020-03-12 07:33] LABS: HEMATOCRIT. 24.3 % (42.0-52.0); MEAN CORPUSCULAR HEMOGLOBIN 30.8 pg (28.0-32.0); MEAN CORPUSCULAR VOLUME 91.1 fL (80.0-94.0); MEAN PLATELET VOLUME 12.2 fl (7.4-10.4); RED BLOOD CELL COUNT 2.66 mill/uL (4.7-6.1)
[2020-03-12 07:56] LABS: HEMOGLOBIN. 8.2 g/dL (14.0-18.0)
[2020-03-12 08:13] LABS: PHOSPHORUS 2.5 mg/dL (2.5-4.9)
[2020-03-12] MEDS: METOPROLOL TARTRATE 25MG TABLET PO SCH ×2 (09:00→21:43)
[2020-03-12] MEDS ORDERED: POTASSIUM CHLORIDE INJ 40 MEQ in DEXT 5% WATER 250 ML IV NR ×2 (09:30→15:00)
[2020-03-12] MEDS ORDERED: POTASSIUM CHLORIDE 20MEQ/PACKET PO SCH (10:00)
[2020-03-12] MEDS: MAGNESIUM OXIDE 400MG TABLET PO SCH (10:02)
[2020-03-12 10:34] LABS: PLATELET ESTIMATE MARKEDLY DECREASED
[2020-03-12 10:35] LABS: PLATELET 24 x1000/uL (130-400)
[2020-03-12 12:25] LABS: BG BASE EXCESS -10.5 mmol/L (-2.0-2.0); BG CARBOXYHEMOGLOBIN 0.1 % (0.5-1.5); BG DEOXYHEMOGLOBIN 2.5 % (0.0-5.0); BG FRACTION INSPIRED OXYGEN 21; BG HCO3 ACT 12.9 mmol/L (22.0-26.0); BG METHEMOGLOBIN 0.5 % (0.0-1.5); BG OXYGEN SATURATION 97.5 % (92.0-98.5); BG OXYHEMOGLOBIN 96.9 % (94.0-97.0); BG PCO2 20.8 mmHg (35.0-45.0); BG PH 7.409 (7.350-7.450); BG PO2 102.7 mmHg (75.0-100.0); BG SAMPLE SITE RIGHT RADIAL; BG VENT MODE ROOM AIR
[2020-03-12] MEDS: MEGESTROL ACETATE 400 MG/10 ML UDC PO SCH ×2 (12:33→18:13)
[2020-03-12] MEDS: ATOVAQUONE 750MG/5ML PACKET PO SCH (12:33)
[2020-03-12] MEDS ORDERED: LEVOFLOXACIN 500MG PREMIX 100 ML IV SCH (13:00)
[2020-03-12] MEDS ORDERED: TOTAL PARENTERAL NUTRITION 1,300 ML IV SCH (21:00)
[2020-03-12] MEDS: DEXTROSE 5% WATER 1,000 ML IV SCH (21:43)
[2020-03-13] VITALS (50 sets, daily range): BP systolic 93–124; BP diastolic 48–84
[2020-03-13] MEDS: DEXTROSE 5% WATER 1,000 ML IV SCH ×3 (00:27→23:47)
[2020-03-13] MEDS: METOCLOPRAMIDE HCL 10MG/2ML VIAL IV SCH ×5 (00:27→23:46)
[2020-03-13] MEDS: NITROGLYCERIN OINT 1GM/INCH UDPKT TD SCH ×2 (05:51→18:00)
[2020-03-13] MEDS: MIDODRINE HCL 2.5MG TABLET PO SCH ×3 (05:51→21:11)
[2020-03-13] MEDS: BLOOD SUGAR DIAGNOSTIC STRIP TEST SCH ×5 (05:51→23:46)
[2020-03-13 05:52] LABS: PHOSPHORUS 2.3 mg/dL (2.5-4.9)
[2020-03-13 06:06] LABS: HEMOGLOBIN. 7.1 g/dL (14.0-18.0); MEAN CORPUSCULAR HEMOGLOBIN 30.7 pg (28.0-32.0); MEAN CORPUSCULAR VOLUME 90.4 fL (80.0-94.0); MEAN PLATELET VOLUME 10.9 fl (7.4-10.4); RED BLOOD CELL COUNT 2.32 mill/uL (4.7-6.1)
[2020-03-13] MEDS: METOPROLOL TARTRATE 25MG TABLET PO SCH ×3 (08:09→22:48)
[2020-03-13] MEDS: MAGNESIUM OXIDE 400MG TABLET PO SCH (08:09)
[2020-03-13] MEDS: MEGESTROL ACETATE 400 MG/10 ML UDC PO SCH ×2 (08:10→17:00)
[2020-03-13] MEDS: ATOVAQUONE 750MG/5ML PACKET PO SCH (08:11)
[2020-03-13 08:39] LABS: PLATELET 16 x1000/uL (130-400)
[2020-03-13 08:45] LABS: PLATELET ESTIMATE DECREASED
[2020-03-13] MEDS: IPRATROPIUM/ALBUTEROL 0.5-3(2.5)MG/3ML NEB HHN SCH ×2 (08:46→12:45)
[2020-03-13] MEDS ORDERED: ETOMIDATE 2MG/ML 10ML VIAL IV ONE (10:00)
[2020-03-13] MEDS ORDERED: SODIUM CHLORIDE 0.9% 10ML VIAL ONE (10:00)
[2020-03-13] MEDS ORDERED: VECURONIUM BROMIDE 10 MG/VIAL IV ONE (10:00)
[2020-03-13] MEDS: POTASSIUM CHLORIDE 20MEQ/PACKET PO SCH (11:24)
[2020-03-13] MEDS ORDERED: NOREPINEPHRINE 8 MG in DEXT 5% WATER 242 ML IV PRN (13:30)
[2020-03-13] MEDS ORDERED: POTASSIUM PHOS,M-BASIC-D-BASIC 15 MMOL in DEXT 5% WATER 245 ML IV NR (14:00)
[2020-03-13 14:09] LABS: BG BASE EXCESS -16.5 mmol/L (-2.0-2.0); BG CARBOXYHEMOGLOBIN 0.3 % (0.5-1.5); BG DEOXYHEMOGLOBIN 0.9 % (0.0-5.0); BG FRACTION INSPIRED OXYGEN 100; BG HCO3 ACT 11.9 mmol/L (22.0-26.0); BG METHEMOGLOBIN 0.5 % (0.0-1.5); BG OXYGEN SATURATION 99.1 % (92.0-98.5); BG OXYHEMOGLOBIN 98.3 % (94.0-97.0); BG PCO2 38.4 mmHg (35.0-45.0); BG PO2 410.4 mmHg (75.0-100.0); BG SAMPLE SITE RIGHT RADIAL; BG TOTAL HEMOGLOBIN 9.8 g/dL (12.0-18.0); BG VENT MODE VENT - AC
[2020-03-13] MEDS: PROPOFOL 10MG/ML 100ML 100 ML IV PRN ×2 (14:18→20:28)
[2020-03-13] MEDS ORDERED: SODIUM BICARBONATE 8.4% 1 MEQ/ML 50ML SYR IV SCH ×3 (14:30)
[2020-03-13] MEDS: MEROPENEM 500 MG in SODIUM CHLORIDE 0.9% 50 ML IV SCH ×2 (15:34→22:48)
[2020-03-13 16:15] LABS: BG BASE EXCESS -12.3 mmol/L (-2.0-2.0); BG CARBOXYHEMOGLOBIN 0.2 % (0.5-1.5); BG DEOXYHEMOGLOBIN 1.8 % (0.0-5.0); BG HCO3 ACT 15.2 mmol/L (22.0-26.0); BG METHEMOGLOBIN 0.3 % (0.0-1.5); BG OXYGEN SATURATION 98.2 % (92.0-98.5); BG OXYHEMOGLOBIN 97.7 % (94.0-97.0); BG PCO2 40.9 mmHg (35.0-45.0); BG PH 7.189 (7.350-7.450); BG PO2 150.3 mmHg (75.0-100.0); BG SAMPLE SITE LEFT RADIAL; BG VENT MODE VENT - AC
[2020-03-13] MEDS: FENTANYL CITRATE/PF 1,000 MCG in SODIUM CHLORIDE 0.9% 80 ML IV PRN (18:58)
[2020-03-13] MEDS ORDERED: TOTAL PARENTERAL NUTRITION 1,300 ML IV SCH (21:00)
[2020-03-13 22:16] LABS: CLARITY URINE CLOUDY (CLEAR); COLOR URINE DARK YELLOW (YELLOW); KETONES URINE NEGATIVE (NEGATIVE); LEUKOCYTE ESTERASE URINE 1+ (NEGATIVE); NITRITE URINE NEGATIVE (NEGATIVE); OCCULT BLOOD URINE 3+ (NEGATIVE); PROTEIN URINE 3+ (NEGATIVE); SPECIFIC GRAVITY URINE 1.021 (1.005-1.030); UROBILINOGEN URINE 0.2 E.U./dL (0.2-1.0)
[2020-03-14] VITALS (87 sets, daily range): BP systolic 78–128; BP diastolic 38–82
[2020-03-14] MEDS: IPRATROPIUM/ALBUTEROL 0.5-3(2.5)MG/3ML NEB HHN SCH ×4 (02:11→20:06)
[2020-03-14] MEDS: ACETAMINOPHEN 325MG TABLET PO PRN ×2 (02:30→23:45)
[2020-03-14] MEDS: PROPOFOL 10MG/ML 100ML 100 ML IV PRN ×3 (02:30→21:45)
[2020-03-14 05:24] LABS: HEMATOCRIT. 24.2 % (42.0-52.0); HEMOGLOBIN. 8.6 g/dL (14.0-18.0); MEAN CORPUSCULAR HEMOGLOBIN 32.5 pg (28.0-32.0); MEAN CORPUSCULAR VOLUME 91.4 fL (80.0-94.0); MEAN PLATELET VOLUME 10.5 fl (7.4-10.4); RED BLOOD CELL COUNT 2.64 mill/uL (4.7-6.1); RED CELL DISTRIBUTION WIDTH 15.7 % (11.6-14.6)
[2020-03-14 05:38] LABS: PHOSPHORUS 4.7 mg/dL (2.5-4.9)
[2020-03-14] MEDS: BLOOD SUGAR DIAGNOSTIC STRIP TEST SCH ×4 (05:49→23:57)
[2020-03-14] MEDS: MEROPENEM 500 MG in SODIUM CHLORIDE 0.9% 50 ML IV SCH (05:49)
[2020-03-14] MEDS: MIDODRINE HCL 2.5MG TABLET PO SCH ×3 (05:51→21:36)
[2020-03-14] MEDS: METOCLOPRAMIDE HCL 10MG/2ML VIAL IV SCH ×4 (05:51→23:44)
[2020-03-14] MEDS: NITROGLYCERIN OINT 1GM/INCH UDPKT TD SCH ×2 (05:51→18:31)
[2020-03-14 06:53] LABS: NUCLEATED RED BLOOD CELLS 1 /100 WBC; PLATELET ESTIMATE MARKEDLY DECREASED
[2020-03-14 06:55] LABS: PLATELET 18 x1000/uL (130-400)
[2020-03-14] MEDS: ATOVAQUONE 750MG/5ML PACKET PO SCH (09:00)
[2020-03-14] MEDS: MIDODRINE HCL 5MG TABLET PO PRN (09:45)
[2020-03-14] MEDS: MAGNESIUM OXIDE 400MG TABLET PO SCH (09:46)
[2020-03-14] MEDS: METOPROLOL TARTRATE 25MG TABLET PO SCH ×2 (09:48→21:37)
[2020-03-14] MEDS: MEGESTROL ACETATE 400 MG/10 ML UDC PO SCH ×2 (09:50→17:00)
[2020-03-14] MEDS: POTASSIUM CHLORIDE 20MEQ/PACKET PO SCH (09:55)
[2020-03-14 10:17] LABS: BG BASE EXCESS -10.3 mmol/L (-2.0-2.0); BG CARBOXYHEMOGLOBIN 0.1 % (0.5-1.5); BG DEOXYHEMOGLOBIN 1.6 % (0.0-5.0); BG FRACTION INSPIRED OXYGEN 40; BG HCO3 ACT 14.7 mmol/L (22.0-26.0); BG METHEMOGLOBIN 0.5 % (0.0-1.5); BG OXYGEN SATURATION 98.4 % (92.0-98.5); BG OXYHEMOGLOBIN 97.8 % (94.0-97.0); BG PCO2 29.7 mmHg (35.0-45.0); BG PH 7.313 (7.350-7.450); BG PO2 191.6 mmHg (75.0-100.0); BG SAMPLE SITE RIGHT RADIAL; BG TOTAL HEMOGLOBIN 9.9 g/dL (12.0-18.0); BG VENT MODE VENT - AC
[2020-03-14] MEDS: FENTANYL CITRATE/PF 1,000 MCG in SODIUM CHLORIDE 0.9% 80 ML IV PRN (12:15)
[2020-03-14] MEDS ORDERED: SODIUM BICARBONATE 8.4% 1 MEQ/ML 50ML SYR IV NR (12:30)
[2020-03-14] MEDS ORDERED: VANCOMYCIN 1 G PREMIX 200 ML IV SCH (15:00)
[2020-03-14] MEDS: MEROPENEM 1000MG in NORMAL SALINE 100ML IV SCH (18:30)
[2020-03-14] MEDS ORDERED: SODIUM BICARBONATE 8.4% 1 MEQ/ML 50ML SYR IV ONE (18:40)
[2020-03-14] MEDS: LORAZEPAM 2MG/ML CPJ IV PRN (21:37)
[2020-03-15] VITALS (87 sets, daily range): BP systolic 81–122; BP diastolic 47–78
[2020-03-15] MEDS: IPRATROPIUM/ALBUTEROL 0.5-3(2.5)MG/3ML NEB HHN SCH ×4 (02:29→20:32)
[2020-03-15] MEDS: MEROPENEM 1000MG in NORMAL SALINE 100ML IV SCH ×2 (05:01→17:42)
[2020-03-15] MEDS: PROPOFOL 10MG/ML 100ML 100 ML IV PRN ×3 (05:02→21:04)
[2020-03-15] MEDS: METOCLOPRAMIDE HCL 10MG/2ML VIAL IV SCH ×3 (05:02→17:41)
[2020-03-15] MEDS: MIDODRINE HCL 2.5MG TABLET PO SCH ×3 (05:02→22:54)
[2020-03-15 05:47] LABS: HEMATOCRIT. 25.1 % (42.0-52.0); HEMOGLOBIN. 8.8 g/dL (14.0-18.0); MEAN CORPUSCULAR HEMOGLOBIN 31.5 pg (28.0-32.0); MEAN CORPUSCULAR VOLUME 90.5 fL (80.0-94.0); MEAN PLATELET VOLUME 10.2 fl (7.4-10.4); RED BLOOD CELL COUNT 2.78 mill/uL (4.7-6.1); RED CELL DISTRIBUTION WIDTH 16.3 % (11.6-14.6)
[2020-03-15 05:54] LABS: PHOSPHORUS 6.4 mg/dL (2.5-4.9)
[2020-03-15] MEDS: NITROGLYCERIN OINT 1GM/INCH UDPKT TD SCH (06:00)
[2020-03-15 06:21] LABS: PLATELET 14 x1000/uL (130-400)
[2020-03-15] MEDS: BLOOD SUGAR DIAGNOSTIC STRIP TEST SCH ×3 (06:40→17:03)
[2020-03-15 08:09] LABS: BG BASE EXCESS -11.8 mmol/L (-2.0-2.0); BG CARBOXYHEMOGLOBIN 0.2 % (0.5-1.5); BG DEOXYHEMOGLOBIN 2.5 % (0.0-5.0); BG FRACTION INSPIRED OXYGEN 30; BG HCO3 ACT 15.1 mmol/L (22.0-26.0); BG METHEMOGLOBIN 0.5 % (0.0-1.5); BG OXYGEN SATURATION 97.5 % (92.0-98.5); BG OXYHEMOGLOBIN 96.8 % (94.0-97.0); BG PCO2 38.5 mmHg (35.0-45.0); BG PH 7.211 (7.350-7.450); BG PO2 118.2 mmHg (75.0-100.0); BG SAMPLE SITE RIGHT RADIAL; BG TOTAL HEMOGLOBIN 8.2 g/dL (12.0-18.0); BG VENT MODE VENT - AC
[2020-03-15] MEDS: METOPROLOL TARTRATE 25MG TABLET PO SCH ×2 (08:12→22:54)
[2020-03-15] MEDS: MAGNESIUM OXIDE 400MG TABLET PO SCH (08:18)
[2020-03-15] MEDS: ATOVAQUONE 750 MG/5 ML ORAL.SUSP PO SCH (08:19)
[2020-03-15] MEDS: POTASSIUM CHLORIDE 20MEQ/PACKET PO SCH (08:19)
[2020-03-15] MEDS: MEGESTROL ACETATE 400 MG/10 ML UDC PO SCH (08:20)
[2020-03-15] MEDS ORDERED: SODIUM BICARBONATE 8.4% 1 MEQ/ML 50ML SYR IV NR (08:45)
[2020-03-15] MEDS: DEXT 5% WATER + KCL 20MEQ/L 1,000 ML IV SCH (11:08)
[2020-03-15 12:03] LABS: PLATELET ESTIMATE MARKEDLY DECREASED
[2020-03-15] MEDS: FENTANYL CITRATE/PF 1,000 MCG in SODIUM CHLORIDE 0.9% 80 ML IV PRN (12:13)
[2020-03-15] MEDS: MIDODRINE HCL 5MG TABLET PO PRN ×3 (14:13→14:29)
[2020-03-15] MEDS ORDERED: PROPOFOL 10MG/ML 100ML 100 ML IV PRN (17:30)
[2020-03-15 20:17] LABS: BG BASE EXCESS -2.5 mmol/L (-2.0-2.0); BG CARBOXYHEMOGLOBIN 0.3 % (0.5-1.5); BG DEOXYHEMOGLOBIN 3.5 % (0.0-5.0); BG FRACTION INSPIRED OXYGEN 30; BG HCO3 ACT 20.8 mmol/L (22.0-26.0); BG METHEMOGLOBIN 0.2 % (0.0-1.5); BG OXYGEN SATURATION 96.5 % (92.0-98.5); BG PH 7.458 (7.350-7.450); BG PO2 87.4 mmHg (75.0-100.0); BG SAMPLE SITE RIGHT RADIAL; BG TOTAL HEMOGLOBIN 9.2 g/dL (12.0-18.0); BG VENT MODE VENT - AC
[2020-03-16] VITALS (86 sets, daily range): BP systolic 91–124; BP diastolic 47–77
[2020-03-16] MEDS: IPRATROPIUM/ALBUTEROL 0.5-3(2.5)MG/3ML NEB HHN SCH ×4 (02:13→20:17)
[2020-03-16] MEDS: METOCLOPRAMIDE HCL 10MG/2ML VIAL IV SCH ×4 (02:27→17:41)
[2020-03-16] MEDS: PROPOFOL 10MG/ML 100ML 100 ML IV PRN ×3 (03:46→17:48)
[2020-03-16 05:31] LABS: HEMATOCRIT. 24.6 % (42.0-52.0); HEMOGLOBIN. 8.6 g/dL (14.0-18.0); MEAN CORPUSCULAR HEMOGLOBIN 31.1 pg (28.0-32.0); MEAN CORPUSCULAR VOLUME 88.7 fL (80.0-94.0); RED BLOOD CELL COUNT 2.78 mill/uL (4.7-6.1); RED CELL DISTRIBUTION WIDTH 15.5 % (11.6-14.6)
[2020-03-16 05:39] LABS: CHLORIDE 110 mEq/L (98-107)
[2020-03-16] MEDS: MIDODRINE HCL 2.5MG TABLET PO SCH ×3 (05:40→22:04)
[2020-03-16] MEDS: BLOOD SUGAR DIAGNOSTIC STRIP TEST SCH ×4 (05:40→17:42)
[2020-03-16] MEDS: MEROPENEM 1000MG in NORMAL SALINE 100ML IV SCH ×2 (05:41→17:41)
[2020-03-16 05:48] LABS: PHOSPHORUS 4.4 mg/dL (2.5-4.9)
[2020-03-16] MEDS: NITROGLYCERIN OINT 1GM/INCH UDPKT TD SCH ×2 (05:54→17:42)
[2020-03-16] MEDS: DEXT 5% WATER + KCL 20MEQ/L 1,000 ML IV SCH (06:06)
[2020-03-16 08:23] LABS: ATYPICAL LYMPHOCYTES 2; PLATELET ESTIMATE DECREASED
[2020-03-16 08:25] LABS: PLATELET 13 x1000/uL (130-400)
[2020-03-16] MEDS: MAGNESIUM OXIDE 400MG TABLET PO SCH (08:39)
[2020-03-16] MEDS: ATOVAQUONE 750 MG/5 ML ORAL.SUSP PO SCH (08:39)
[2020-03-16] MEDS: METOPROLOL TARTRATE 25MG TABLET PO SCH ×2 (08:40→21:00)
[2020-03-16] MEDS: DEXTROSE 5% WATER 1,000 ML IV SCH (09:51)
[2020-03-16] MEDS ORDERED: VANCOMYCIN 1250MG in DEXTROSE 5% WATER 250ML IV SCH (10:00)
[2020-03-16] MEDS: FENTANYL CITRATE/PF 1,000 MCG in SODIUM CHLORIDE 0.9% 80 ML IV PRN (10:20)
[2020-03-16 15:30] LABS: BG BASE EXCESS -3.7 mmol/L (-2.0-2.0); BG CARBOXYHEMOGLOBIN 0.2 % (0.5-1.5); BG DEOXYHEMOGLOBIN 2.3 % (0.0-5.0); BG HCO3 ACT 21.5 mmol/L (22.0-26.0); BG METHEMOGLOBIN 0.5 % (0.0-1.5); BG OXYGEN SATURATION 97.7 % (92.0-98.5); BG PCO2 39.4 mmHg (35.0-45.0); BG PH 7.354 (7.350-7.450); BG PO2 109.2 mmHg (75.0-100.0); BG SAMPLE SITE RIGHT RADIAL; BG TOTAL HEMOGLOBIN 9.1 g/dL (12.0-18.0); BG VENT MODE VENT - AC
[2020-03-16] MEDS: MICAFUNGIN 100 MG in SODIUM CHLORIDE 0.9% 100 ML IV SCH (16:57)
[2020-03-16] MEDS: METOPROLOL TARTRATE 5MG/5ML VIAL IV PRN (17:41)
[2020-03-16] MEDS: MIDAZOLAM HCL 100 MG in DEXT 5% WATER 80 ML IV PRN (20:04)
[2020-03-16] MEDS: ACETAMINOPHEN 325MG TABLET PO PRN (20:38)
[2020-03-17] VITALS (81 sets, daily range): BP systolic 88–174; BP diastolic 48–98
[2020-03-17 00:07] LABS: HEMATOCRIT. 22.9 % (42.0-52.0); HEMOGLOBIN. 8.1 g/dL (14.0-18.0); MEAN CORPUSCULAR HEMOGLOBIN 31.6 pg (28.0-32.0); MEAN CORPUSCULAR VOLUME 89.7 fL (80.0-94.0); MEAN PLATELET VOLUME 10.4 fl (7.4-10.4); RED BLOOD CELL COUNT 2.56 mill/uL (4.7-6.1); RED CELL DISTRIBUTION WIDTH 15.7 % (11.6-14.6)
[2020-03-17 00:26] LABS: INR 1.1; PROTHROMBIN TIME 11.2 sec (9.6-11.0)
[2020-03-17 00:30] LABS: PLATELET 15 x1000/uL (130-400)
[2020-03-17] MEDS: METOCLOPRAMIDE HCL 10MG/2ML VIAL IV SCH ×4 (01:20→17:54)
[2020-03-17] MEDS: FENTANYL CITRATE/PF 1,000 MCG in SODIUM CHLORIDE 0.9% 80 ML IV PRN ×2 (01:22→20:29)
[2020-03-17] MEDS: IPRATROPIUM/ALBUTEROL 0.5-3(2.5)MG/3ML NEB HHN SCH ×4 (01:54→20:17)
[2020-03-17 05:40] LABS: NUCLEATED RED BLOOD CELLS 1 /100 WBC; PLATELET ESTIMATE DECREASED
[2020-03-17 05:42] LABS: CHLORIDE 106 mEq/L (98-107)
[2020-03-17] MEDS: BLOOD SUGAR DIAGNOSTIC STRIP TEST SCH ×4 (05:45→18:59)
[2020-03-17] MEDS: MEROPENEM 1000MG in NORMAL SALINE 100ML IV SCH ×2 (05:46→17:53)
[2020-03-17] MEDS: NITROGLYCERIN OINT 1GM/INCH UDPKT TD SCH ×2 (05:46→17:53)
[2020-03-17] MEDS: MIDODRINE HCL 2.5MG TABLET PO SCH ×3 (05:47→21:48)
[2020-03-17 05:57] LABS: PHOSPHORUS 7.4 mg/dL (2.5-4.9)
[2020-03-17 08:40] LABS: BG BASE EXCESS -5.2 mmol/L (-2.0-2.0); BG CARBOXYHEMOGLOBIN 0.6 % (0.5-1.5); BG DEOXYHEMOGLOBIN 1.6 % (0.0-5.0); BG FRACTION INSPIRED OXYGEN 30; BG HCO3 ACT 20.4 mmol/L (22.0-26.0); BG METHEMOGLOBIN 0.5 % (0.0-1.5); BG OXYGEN SATURATION 98.4 % (92.0-98.5); BG OXYHEMOGLOBIN 97.3 % (94.0-97.0); BG PCO2 40.4 mmHg (35.0-45.0); BG PH 7.322 (7.350-7.450); BG PO2 126.3 mmHg (75.0-100.0); BG SAMPLE SITE RIGHT RADIAL; BG TOTAL HEMOGLOBIN 8.3 g/dL (12.0-18.0); BG VENT MODE VENT - AC
[2020-03-17] MEDS: MAGNESIUM OXIDE 400MG TABLET PO SCH (09:00)
[2020-03-17] MEDS: METOPROLOL TARTRATE 25MG TABLET PO SCH ×2 (09:00→21:47)
[2020-03-17] MEDS: ATOVAQUONE 750 MG/5 ML ORAL.SUSP PO SCH (09:01)
[2020-03-17] MEDS: DEXTROSE 5% WATER 1,000 ML IV SCH (09:01)
[2020-03-17 09:16] LABS: HEMATOCRIT. 24.2 % (42.0-52.0); HEMOGLOBIN. 8.2 g/dL (14.0-18.0); MEAN CORPUSCULAR HEMOGLOBIN 30.9 pg (28.0-32.0); MEAN CORPUSCULAR VOLUME 91.2 fL (80.0-94.0); MEAN PLATELET VOLUME 10.6 fl (7.4-10.4); RED BLOOD CELL COUNT 2.66 mill/uL (4.7-6.1); RED CELL DISTRIBUTION WIDTH 16.2 % (11.6-14.6)
[2020-03-17 09:24] LABS: INR 1.1; PROTHROMBIN TIME 11.3 sec (9.6-11.0)
[2020-03-17] MEDS ORDERED: SODIUM BICARBONATE 4% (2.4MEQ) 5ML VIAL IV ONE (10:52)
[2020-03-17] MEDS ORDERED: LIDOCAINE HCL 1% 20ML VIAL (Pyxis) INJ ONE (10:52)
[2020-03-17] MEDS ORDERED: HEPARIN 1000 UNITS/ML 10ML ONE (10:53)
[2020-03-17 10:56] LABS: PLATELET ESTIMATE MARKEDLY DECREASED
[2020-03-17 11:05] LABS: PLATELET 14 x1000/uL (130-400)
[2020-03-17] MEDS: MICAFUNGIN 100 MG in SODIUM CHLORIDE 0.9% 100 ML IV SCH (14:56)
[2020-03-17] MEDS ORDERED: VANCOMYCIN 750 MG PREMIX 150 ML IV NR (15:00)
[2020-03-18] VITALS (42 sets, daily range): BP systolic 101–139; BP diastolic 54–82
[2020-03-18] MEDS: METOCLOPRAMIDE HCL 10MG/2ML VIAL IV SCH ×3 (01:46→18:02)
[2020-03-18] MEDS: BLOOD SUGAR DIAGNOSTIC STRIP TEST SCH ×4 (01:47→18:00)
[2020-03-18] MEDS: IPRATROPIUM/ALBUTEROL 0.5-3(2.5)MG/3ML NEB HHN SCH ×4 (01:53→20:14)
[2020-03-18] MEDS: ACETAMINOPHEN 325MG TABLET PO PRN (05:02)
[2020-03-18 05:47] LABS: HEMATOCRIT. 21.9 % (42.0-52.0); HEMOGLOBIN. 7.6 g/dL (14.0-18.0); MEAN CORPUSCULAR HEMOGLOBIN 31.3 pg (28.0-32.0); MEAN CORPUSCULAR VOLUME 89.9 fL (80.0-94.0); MEAN PLATELET VOLUME 10.4 fl (7.4-10.4); RED BLOOD CELL COUNT 2.43 mill/uL (4.7-6.1)
[2020-03-18 06:06] LABS: PHOSPHORUS 5.4 mg/dL (2.5-4.9)
[2020-03-18] MEDS: MEROPENEM 1000MG in NORMAL SALINE 100ML IV SCH ×2 (07:05→18:02)
[2020-03-18] MEDS: METOPROLOL TARTRATE 25MG TABLET PO SCH ×2 (08:07→20:49)
[2020-03-18] MEDS: MAGNESIUM OXIDE 400MG TABLET PO SCH (08:07)
[2020-03-18] MEDS: NITROGLYCERIN OINT 1GM/INCH UDPKT TD SCH ×2 (08:07→18:02)
[2020-03-18] MEDS: ATOVAQUONE 750 MG/5 ML ORAL.SUSP PO SCH (08:07)
[2020-03-18] MEDS: DEXTROSE 5% WATER 1,000 ML IV SCH (08:07)
[2020-03-18 08:18] LABS: PLATELET ESTIMATE DECREASED
[2020-03-18 08:21] LABS: PLATELET 17 x1000/uL (130-400)
[2020-03-18] MEDS: FENTANYL CITRATE/PF 1,000 MCG in SODIUM CHLORIDE 0.9% 80 ML IV PRN ×2 (10:08→19:00)
[2020-03-18] MEDS: MIDODRINE HCL 2.5MG TABLET PO SCH ×2 (13:52→22:00)
[2020-03-18] MEDS: MICAFUNGIN 100 MG in SODIUM CHLORIDE 0.9% 100 ML IV SCH (13:52)
[2020-03-18 15:15] LABS: BG BASE EXCESS -1.8 mmol/L (-2.0-2.0); BG CARBOXYHEMOGLOBIN 0.3 % (0.5-1.5); BG DEOXYHEMOGLOBIN 2.4 % (0.0-5.0); BG FRACTION INSPIRED OXYGEN 30; BG HCO3 ACT 22.9 mmol/L (22.0-26.0); BG METHEMOGLOBIN 0.5 % (0.0-1.5); BG OXYGEN SATURATION 97.6 % (92.0-98.5); BG OXYHEMOGLOBIN 96.8 % (94.0-97.0); BG PCO2 38.2 mmHg (35.0-45.0); BG PH 7.395 (7.350-7.450); BG PO2 105.9 mmHg (75.0-100.0); BG SAMPLE SITE RIGHT RADIAL; BG TOTAL HEMOGLOBIN 8.8 g/dL (12.0-18.0); BG VENT MODE VENT - AC
[2020-03-18] MEDS: FLUCONAZOLE 400MG/200ML BAG 200 ML IV SCH (16:12)
[2020-03-19] VITALS (76 sets, daily range): BP systolic 99–137; BP diastolic 56–86
[2020-03-19] MEDS: BLOOD SUGAR DIAGNOSTIC STRIP TEST SCH ×4 (00:26→18:04)
[2020-03-19] MEDS: METOCLOPRAMIDE HCL 10MG/2ML VIAL IV SCH ×4 (00:27→18:04)
[2020-03-19] MEDS: IPRATROPIUM/ALBUTEROL 0.5-3(2.5)MG/3ML NEB HHN SCH ×4 (01:05→19:53)
[2020-03-19] MEDS: NITROGLYCERIN OINT 1GM/INCH UDPKT TD SCH ×2 (05:33→18:04)
[2020-03-19] MEDS: MIDODRINE HCL 2.5MG TABLET PO SCH ×3 (05:33→22:15)
[2020-03-19 06:01] LABS: MEAN CORPUSCULAR HEMOGLOBIN 31.4 pg (28.0-32.0); MEAN CORPUSCULAR VOLUME 91.6 fL (80.0-94.0); MEAN PLATELET VOLUME 11.7 fl (7.4-10.4); RED BLOOD CELL COUNT 2.22 mill/uL (4.7-6.1); RED CELL DISTRIBUTION WIDTH 16.1 % (11.6-14.6)
[2020-03-19 06:09] LABS: HEMATOCRIT. 20.4 % (42.0-52.0)
[2020-03-19 06:12] LABS: PHOSPHORUS 7.8 mg/dL (2.5-4.9)
[2020-03-19] MEDS: FENTANYL CITRATE/PF 1,000 MCG in SODIUM CHLORIDE 0.9% 80 ML IV PRN (07:00)
[2020-03-19 07:32] LABS: PLATELET ESTIMATE MARKEDLY DECREASED
[2020-03-19 07:33] LABS: PLATELET 31 x1000/uL (130-400)
[2020-03-19] MEDS: MAGNESIUM OXIDE 400MG TABLET PO SCH (09:59)
[2020-03-19] MEDS: MIDODRINE HCL 5MG TABLET PO PRN (09:59)
[2020-03-19] MEDS: METOPROLOL TARTRATE 25MG TABLET PO SCH ×2 (09:59→22:16)
[2020-03-19] MEDS: DEXTROSE 5% WATER 1,000 ML IV SCH (09:59)
[2020-03-19] MEDS: ATOVAQUONE 750 MG/5 ML ORAL.SUSP PO SCH (09:59)
[2020-03-19] MEDS: MIDAZOLAM HCL 100 MG in DEXT 5% WATER 80 ML IV PRN (11:15)
[2020-03-19] MEDS: FLUCONAZOLE 400MG/200ML BAG 200 ML IV SCH (16:03)
[2020-03-19] MEDS ORDERED: VANCOMYCIN 1 G PREMIX 200 ML IV NR (17:00)
[2020-03-20] VITALS (94 sets, daily range): BP systolic 102–129; BP diastolic 48–94
[2020-03-20] MEDS: BLOOD SUGAR DIAGNOSTIC STRIP TEST SCH ×4 (00:24→18:05)
[2020-03-20] MEDS: METOCLOPRAMIDE HCL 10MG/2ML VIAL IV SCH ×5 (00:34→23:44)
[2020-03-20] MEDS: IPRATROPIUM/ALBUTEROL 0.5-3(2.5)MG/3ML NEB HHN SCH ×4 (01:59→20:43)
[2020-03-20] MEDS: MIDODRINE HCL 2.5MG TABLET PO SCH ×3 (05:56→22:00)
[2020-03-20] MEDS: NITROGLYCERIN OINT 1GM/INCH UDPKT TD SCH ×2 (05:56→18:05)
[2020-03-20] MEDS: FENTANYL CITRATE/PF 1,000 MCG in SODIUM CHLORIDE 0.9% 80 ML IV PRN ×2 (06:01→22:24)
[2020-03-20 06:24] LABS: HEMATOCRIT. 22.7 % (42.0-52.0); HEMOGLOBIN. 7.9 g/dL (14.0-18.0); MEAN CORPUSCULAR HEMOGLOBIN 31.5 pg (28.0-32.0); MEAN CORPUSCULAR VOLUME 90.5 fL (80.0-94.0); MEAN PLATELET VOLUME 10.6 fl (7.4-10.4); RED BLOOD CELL COUNT 2.51 mill/uL (4.7-6.1); RED CELL DISTRIBUTION WIDTH 16.2 % (11.6-14.6)
[2020-03-20] MEDS: MAGNESIUM OXIDE 400MG TABLET PO SCH (08:49)
[2020-03-20] MEDS: ATOVAQUONE 750 MG/5 ML ORAL.SUSP PO SCH (08:49)
[2020-03-20] MEDS: METOPROLOL TARTRATE 25MG TABLET PO SCH ×2 (08:49→21:43)
[2020-03-20 10:42] LABS: PLATELET 14 x1000/uL (130-400); PLATELET ESTIMATE MARKEDLY DECREASED
[2020-03-20] MEDS: DEXTROSE 5% WATER 1,000 ML IV SCH (15:41)
[2020-03-20] MEDS: FLUCONAZOLE 400MG/200ML BAG 200 ML IV SCH (16:58)
[2020-03-20] MEDS: ACETAMINOPHEN 325MG TABLET PO PRN (22:04)
[2020-03-20] MEDS: DIPHENHYDRAMINE 50MG/ML VIAL IV PRN (22:04)
[2020-03-21] VITALS (98 sets, daily range): BP systolic 77–143; BP diastolic 41–82
[2020-03-21] MEDS: IPRATROPIUM/ALBUTEROL 0.5-3(2.5)MG/3ML NEB HHN SCH ×4 (01:48→20:54)
[2020-03-21] MEDS: ACETAMINOPHEN 325MG TABLET PO PRN ×2 (04:51→18:35)
[2020-03-21 05:05] LABS: MEAN CORPUSCULAR HEMOGLOBIN 31.3 pg (28.0-32.0); MEAN CORPUSCULAR VOLUME 91.8 fL (80.0-94.0); MEAN PLATELET VOLUME 11.4 fl (7.4-10.4); RED BLOOD CELL COUNT 1.84 mill/uL (4.7-6.1); RED CELL DISTRIBUTION WIDTH 15.7 % (11.6-14.6)
[2020-03-21 05:14] LABS: HEMOGLOBIN. 5.7 g/dL (14.0-18.0)
[2020-03-21 05:15] LABS: HEMATOCRIT. 16.9 % (42.0-52.0); PHOSPHORUS 6.3 mg/dL (2.5-4.9); PLATELET 23 x1000/uL (130-400)
[2020-03-21] MEDS: BLOOD SUGAR DIAGNOSTIC STRIP TEST SCH ×4 (07:00→18:29)
[2020-03-21] MEDS: FENTANYL CITRATE/PF 1,000 MCG in SODIUM CHLORIDE 0.9% 80 ML IV PRN ×2 (07:00→15:49)
[2020-03-21] MEDS: METOCLOPRAMIDE HCL 10MG/2ML VIAL IV SCH ×3 (07:01→18:28)
[2020-03-21] MEDS: MIDODRINE HCL 2.5MG TABLET PO SCH ×3 (07:02→22:33)
[2020-03-21] MEDS: NITROGLYCERIN OINT 1GM/INCH UDPKT TD SCH ×2 (07:03→18:28)
[2020-03-21] MEDS: METOPROLOL TARTRATE 25MG TABLET PO SCH ×2 (09:00→20:58)
[2020-03-21] MEDS: ATOVAQUONE 750 MG/5 ML ORAL.SUSP PO SCH (09:00)
[2020-03-21 09:19] LABS: PLATELET ESTIMATE MARKEDLY DECREASED
[2020-03-21] MEDS: MIDODRINE HCL 5MG TABLET PO PRN (13:36)
[2020-03-21] MEDS: FLUCONAZOLE 400MG/200ML BAG 200 ML IV SCH (16:00)
[2020-03-21 16:17] LABS: HEMATOCRIT 24.9 % (42.0-52.0); HEMOGLOBIN 8.5 g/dL (14.0-18.0)
[2020-03-21] MEDS ORDERED: VANCOMYCIN 750 MG PREMIX 150 ML IV SCH (17:00)
[2020-03-21] MEDS: METOPROLOL TARTRATE 5MG/5ML VIAL IV PRN (18:46)
[2020-03-21] MEDS: DEXTROSE 5% WATER 1,000 ML IV SCH (22:59)
[2020-03-22] VITALS (84 sets, daily range): BP systolic 101–131; BP diastolic 51–91
[2020-03-22] MEDS: BLOOD SUGAR DIAGNOSTIC STRIP TEST SCH ×2 (01:28)
[2020-03-22] MEDS: METOCLOPRAMIDE HCL 10MG/2ML VIAL IV SCH ×5 (01:28→23:36)
[2020-03-22] MEDS: IPRATROPIUM/ALBUTEROL 0.5-3(2.5)MG/3ML NEB HHN SCH ×2 (01:40→20:33)
[2020-03-22] MEDS: NITROGLYCERIN OINT 1GM/INCH UDPKT TD SCH ×2 (05:28→17:07)
[2020-03-22] MEDS: MIDODRINE HCL 2.5MG TABLET PO SCH ×3 (05:38→21:49)
[2020-03-22 06:55] LABS: HEMATOCRIT. 24.2 % (42.0-52.0); HEMOGLOBIN. 8.4 g/dL (14.0-18.0); MEAN CORPUSCULAR HEMOGLOBIN 32.2 pg (28.0-32.0); MEAN CORPUSCULAR VOLUME 92.9 fL (80.0-94.0); RED BLOOD CELL COUNT 2.61 mill/uL (4.7-6.1); RED CELL DISTRIBUTION WIDTH 15.1 % (11.6-14.6)
[2020-03-22 06:58] LABS: PHOSPHORUS 5.4 mg/dL (2.5-4.9)
[2020-03-22] MEDS: METOPROLOL TARTRATE 25MG TABLET PO SCH ×2 (08:20→20:33)
[2020-03-22] MEDS: ATOVAQUONE 750 MG/5 ML ORAL.SUSP PO SCH (08:20)
[2020-03-22] MEDS: FENTANYL CITRATE/PF 1,000 MCG in SODIUM CHLORIDE 0.9% 80 ML IV PRN ×4 (10:26→20:53)
[2020-03-22 14:24] LABS: PLATELET ESTIMATE DECREASED
[2020-03-22 14:31] LABS: PLATELET 33 x1000/uL (130-400)
[2020-03-22] MEDS: FLUCONAZOLE 200 MG/100ML BAG 100 ML IV SCH (17:07)
[2020-03-22] MEDS: METOPROLOL TARTRATE 5MG/5ML VIAL IV PRN (17:08)
[2020-03-22] MEDS ORDERED: CALCIUM GLUCONATE 100MG/ML 10ML VIAL IV SCH (23:00)
[2020-03-22] MEDS: CALCIUM GLUCONATE 100MG/ML 10ML VIAL IV SCH (23:37)
[2020-03-23] VITALS (79 sets, daily range): BP systolic 102–144; BP diastolic 52–99
[2020-03-23] MEDS: IPRATROPIUM/ALBUTEROL 0.5-3(2.5)MG/3ML NEB HHN SCH ×2 (02:14→20:22)
[2020-03-23] MEDS: NITROGLYCERIN OINT 1GM/INCH UDPKT TD SCH (05:07)
[2020-03-23] MEDS: MIDODRINE HCL 2.5MG TABLET PO SCH ×3 (05:07→21:17)
[2020-03-23] MEDS: METOCLOPRAMIDE HCL 10MG/2ML VIAL IV SCH ×2 (05:08→12:00)
[2020-03-23] MEDS: BLOOD SUGAR DIAGNOSTIC STRIP TEST SCH ×4 (05:08→23:19)
[2020-03-23 05:48] LABS: MEAN CORPUSCULAR HEMOGLOBIN 32.4 pg (28.0-32.0); MEAN CORPUSCULAR VOLUME 95.1 fL (80.0-94.0); RED BLOOD CELL COUNT 1.83 mill/uL (4.7-6.1); RED CELL DISTRIBUTION WIDTH 15.7 % (11.6-14.6)
[2020-03-23 07:01] LABS: HEMOGLOBIN. 5.9 g/dL (14.0-18.0)
[2020-03-23 07:02] LABS: HEMATOCRIT. 17.4 % (42.0-52.0)
[2020-03-23 07:08] LABS: CHLORIDE 105 mEq/L (98-107)
[2020-03-23 07:14] LABS: PHOSPHORUS 6.3 mg/dL (2.5-4.9)
[2020-03-23 09:46] LABS: PLATELET ESTIMATE DECREASED
[2020-03-23 09:53] LABS: PLATELET 25 x1000/uL (130-400)
[2020-03-23] MEDS: FENTANYL CITRATE/PF 1,000 MCG in SODIUM CHLORIDE 0.9% 80 ML IV PRN (10:44)
[2020-03-23 11:03] LABS: INR 1.1; PROTHROMBIN TIME 11.5 sec (9.6-11.0)
[2020-03-23] MEDS: MIDODRINE HCL 5MG TABLET PO PRN (11:29)
[2020-03-23] MEDS: METOPROLOL TARTRATE 25MG TABLET PO SCH ×2 (11:30→21:17)
[2020-03-23 13:08] LABS: HEMATOCRIT. 22.1 % (42.0-52.0); HEMOGLOBIN. 7.7 g/dL (14.0-18.0); MEAN CORPUSCULAR HEMOGLOBIN 31.5 pg (28.0-32.0); MEAN CORPUSCULAR VOLUME 90.9 fL (80.0-94.0); MEAN PLATELET VOLUME 11.5 fl (7.4-10.4); RED BLOOD CELL COUNT 2.43 mill/uL (4.7-6.1); RED CELL DISTRIBUTION WIDTH 14.6 % (11.6-14.6)
[2020-03-23 13:32] LABS: PLATELET 47 x1000/uL (130-400)
[2020-03-23] MEDS: ATOVAQUONE 750 MG/5 ML ORAL.SUSP PO SCH (13:49)
[2020-03-23] MEDS ORDERED: CALCITRIOL 0.5MCG CAPSULE PO ONE (15:30)
[2020-03-23] MEDS: FLUCONAZOLE 200 MG/100ML BAG 100 ML IV SCH (15:36)
[2020-03-23] MEDS ORDERED: SODIUM CHLORIDE 0.9% 1,000 ML IV SCH (16:00)
[2020-03-23] MEDS: PANTOPRAZOLE SODIUM 40 MG/VIAL IV SCH (16:28)
[2020-03-23] MEDS ORDERED: VANCOMYCIN 1 G PREMIX 200 ML IV SCH (17:00)
[2020-03-23] MEDS: CALCITRIOL 1 MCG/ML ORAL SYR NG SCH (17:32)
[2020-03-23 18:08] LABS: BG BASE EXCESS 0.7 mmol/L (-2.0-2.0); BG CARBOXYHEMOGLOBIN 0.6 % (0.5-1.5); BG DEOXYHEMOGLOBIN 1.8 % (0.0-5.0); BG FRACTION INSPIRED OXYGEN 30; BG HCO3 ACT 25.4 mmol/L (22.0-26.0); BG METHEMOGLOBIN 0.6 % (0.0-1.5); BG OXYGEN SATURATION 98.2 % (92.0-98.5); BG PCO2 41.4 mmHg (35.0-45.0); BG PH 7.406 (7.350-7.450); BG PO2 119.7 mmHg (75.0-100.0); BG SAMPLE SITE RIGHT RADIAL; BG VENT MODE VENT - AC
[2020-03-23 20:27] LABS: HEMOGLOBIN 6.7 g/dL (14.0-18.0)
[2020-03-23 20:28] LABS: HEMATOCRIT 19.4 % (42.0-52.0)
[2020-03-23] MEDS: CALCIUM GLUCONATE 100MG/ML 10ML VIAL IV SCH (23:19)
[2020-03-24] VITALS (91 sets, daily range): BP systolic 112–145; BP diastolic 60–97
[2020-03-24] MEDS: FENTANYL CITRATE/PF 1,000 MCG in SODIUM CHLORIDE 0.9% 80 ML IV PRN ×2 (00:34→17:20)
[2020-03-24] MEDS: IPRATROPIUM/ALBUTEROL 0.5-3(2.5)MG/3ML NEB HHN SCH ×5 (01:56→20:33)
[2020-03-24 02:37] LABS: HEMATOCRIT 22.6 % (42.0-52.0); HEMOGLOBIN 7.8 g/dL (14.0-18.0)
[2020-03-24 05:49] LABS: HEMATOCRIT. 21.1 % (42.0-52.0); HEMOGLOBIN. 7.4 g/dL (14.0-18.0); MEAN CORPUSCULAR HEMOGLOBIN 32.3 pg (28.0-32.0); MEAN CORPUSCULAR VOLUME 92.2 fL (80.0-94.0); MEAN PLATELET VOLUME 11.9 fl (7.4-10.4); PLATELET 69 x1000/uL (130-400); RED BLOOD CELL COUNT 2.29 mill/uL (4.7-6.1); RED CELL DISTRIBUTION WIDTH 14.9 % (11.6-14.6)
[2020-03-24 05:55] LABS: CHLORIDE 109 mEq/L (98-107)
[2020-03-24] MEDS: MIDODRINE HCL 2.5MG TABLET PO SCH ×3 (06:00→22:00)
[2020-03-24 06:05] LABS: PHOSPHORUS 6.1 mg/dL (2.5-4.9)
[2020-03-24] MEDS: BLOOD SUGAR DIAGNOSTIC STRIP TEST SCH ×3 (06:31→17:51)
[2020-03-24] MEDS: METOPROLOL TARTRATE 25MG TABLET PO SCH ×2 (08:26→20:10)
[2020-03-24] MEDS: PANTOPRAZOLE SODIUM 40 MG/VIAL IV SCH ×2 (08:26→20:11)
[2020-03-24] MEDS: CALCITRIOL 1 MCG/ML ORAL SYR NG SCH (08:27)
[2020-03-24 08:41] LABS: PLATELET ESTIMATE DECREASED
[2020-03-24] MEDS: ATOVAQUONE 750 MG/5 ML ORAL.SUSP PO SCH (09:27)
[2020-03-24] MEDS ORDERED: SODIUM CHLORIDE 0.45% 1,000 ML IV SCH (11:15)
[2020-03-24 11:33] LABS: PLATELET ESTIMATE DECREASED
[2020-03-24 13:30] LABS: HEMATOCRIT 21.4 % (42.0-52.0); HEMOGLOBIN 7.5 g/dL (14.0-18.0)
[2020-03-24] MEDS: FLUCONAZOLE 200 MG/100ML BAG 100 ML IV SCH (16:13)
[2020-03-24] MEDS: DEXT 5%/0.45% NACL 1000ML 1,000 ML IV SCH (16:14)
[2020-03-24] MEDS ORDERED: CEFEPIME 1,000 MG in DEXTROSE 5% WATER 50 ML IV SCH (17:15)
[2020-03-24] MEDS: ACETAMINOPHEN 650MG/20.3ML UDC PO PRN (17:20)
[2020-03-24] MEDS: METOPROLOL TARTRATE 5MG/5ML VIAL IV PRN (18:47)
[2020-03-24] MEDS: CEFEPIME 2,000 MG in DEXT 5% WATER 100 ML IV SCH (19:32)
[2020-03-24 20:00] LABS: HEMATOCRIT 20.9 % (42.0-52.0)
[2020-03-24 20:01] LABS: HEMOGLOBIN 7.3 g/dL (14.0-18.0)
[2020-03-24] MEDS: CALCIUM GLUCONATE 100MG/ML 10ML VIAL IV SCH (22:49)
[2020-03-25] VITALS (108 sets, daily range): BP systolic 118–151; BP diastolic 70–106
[2020-03-25 00:29] LABS: HEMATOCRIT 19.6 % (42.0-52.0); HEMOGLOBIN 6.8 g/dL (14.0-18.0)
[2020-03-25] MEDS: BLOOD SUGAR DIAGNOSTIC STRIP TEST SCH ×4 (01:11→17:17)
[2020-03-25] MEDS: IPRATROPIUM/ALBUTEROL 0.5-3(2.5)MG/3ML NEB HHN SCH ×4 (02:12→20:32)
[2020-03-25] MEDS: FENTANYL CITRATE/PF 1,000 MCG in SODIUM CHLORIDE 0.9% 80 ML IV PRN ×2 (04:55→13:50)
[2020-03-25] MEDS: MIDODRINE HCL 2.5MG TABLET PO SCH ×3 (06:00→22:00)
[2020-03-25] MEDS: METOPROLOL TARTRATE 25MG TABLET PO SCH ×2 (09:33→22:03)
[2020-03-25] MEDS: PANTOPRAZOLE SODIUM 40 MG/VIAL IV SCH ×2 (09:33→21:55)
[2020-03-25] MEDS: MIDODRINE HCL 5MG TABLET PO PRN (09:34)
[2020-03-25] MEDS: ATOVAQUONE 750 MG/5 ML ORAL.SUSP PO SCH (09:43)
[2020-03-25] MEDS: CALCITRIOL 1 MCG/ML ORAL SYR NG SCH (09:43)
[2020-03-25 10:18] LABS: HEMATOCRIT. 24.3 % (42.0-52.0); HEMOGLOBIN. 8.2 g/dL (14.0-18.0); MEAN CORPUSCULAR HEMOGLOBIN 30.5 pg (28.0-32.0); MEAN CORPUSCULAR VOLUME 90.1 fL (80.0-94.0); PLATELET 90 x1000/uL (130-400); RED CELL DISTRIBUTION WIDTH 14.3 % (11.6-14.6)
[2020-03-25 10:25] LABS: PHOSPHORUS 3.8 mg/dL (2.5-4.9)
[2020-03-25 11:38] LABS: PLATELET ESTIMATE DECREASED
[2020-03-25] MEDS: DEXT 5%/0.45% NACL 1000ML 1,000 ML IV SCH (13:46)
[2020-03-25] MEDS ORDERED: MIDAZOLAM HCL 5 MG/5 ML VIAL IV PRN (14:04)
[2020-03-25] MEDS ORDERED: FENTANYL CITRATE/PF 50MCG/ML 2ML VIAL ONE (14:04)
[2020-03-25] MEDS ORDERED: MIDAZOLAM HCL 5 MG/5 ML VIAL ONE (14:04)
[2020-03-25] MEDS: FLUCONAZOLE 200 MG/100ML BAG 100 ML IV SCH (16:52)
[2020-03-25] MEDS ORDERED: VANCOMYCIN 1 G PREMIX 200 ML IV SCH (18:00)
[2020-03-25 19:00] LABS: HEMATOCRIT 21.6 % (42.0-52.0); HEMOGLOBIN 7.4 g/dL (14.0-18.0)
[2020-03-25] MEDS: CEFEPIME 2,000 MG in DEXT 5% WATER 100 ML IV SCH (20:44)
[2020-03-26] VITALS (93 sets, daily range): BP systolic 113–165; BP diastolic 66–113
[2020-03-26] MEDS: CALCIUM GLUCONATE 100MG/ML 10ML VIAL IV SCH ×2 (00:41→23:19)
[2020-03-26 00:50] LABS: HEMOGLOBIN 8.1 g/dL (14.0-18.0)
[2020-03-26] MEDS: FENTANYL CITRATE/PF 1,000 MCG in SODIUM CHLORIDE 0.9% 80 ML IV PRN ×2 (01:27→07:43)
[2020-03-26] MEDS: IPRATROPIUM/ALBUTEROL 0.5-3(2.5)MG/3ML NEB HHN SCH ×4 (02:41→20:17)
[2020-03-26 05:45] LABS: HEMATOCRIT. 24.8 % (42.0-52.0); HEMOGLOBIN. 8.8 g/dL (14.0-18.0); MEAN CORPUSCULAR HEMOGLOBIN 32.4 pg (28.0-32.0); MEAN CORPUSCULAR VOLUME 91.8 fL (80.0-94.0); MEAN PLATELET VOLUME 10.8 fl (7.4-10.4); RED CELL DISTRIBUTION WIDTH 14.5 % (11.6-14.6)
[2020-03-26 05:59] LABS: PHOSPHORUS 4.6 mg/dL (2.5-4.9)
[2020-03-26] MEDS: MIDODRINE HCL 2.5MG TABLET PO SCH ×3 (06:00→22:00)
[2020-03-26] MEDS: BLOOD SUGAR DIAGNOSTIC STRIP TEST SCH ×4 (06:00→18:48)
[2020-03-26] MEDS: HYDROCORTISONE ACETATE 25MG SUPP PR SCH ×3 (09:02→17:00)
[2020-03-26] MEDS: ATOVAQUONE 750 MG/5 ML ORAL.SUSP PO SCH (09:02)
[2020-03-26] MEDS: PANTOPRAZOLE SODIUM 40 MG/VIAL IV SCH ×2 (09:02→21:04)
[2020-03-26] MEDS: CALCITRIOL 1 MCG/ML ORAL SYR NG SCH (09:02)
[2020-03-26] MEDS: METOPROLOL TARTRATE 25MG TABLET PO SCH ×2 (09:03→21:05)
[2020-03-26] MEDS: DEXT 5%/0.45% NACL 1000ML 1,000 ML IV SCH (09:04)
[2020-03-26 13:13] LABS: PLATELET ESTIMATE DECREASED
[2020-03-26 13:14] LABS: PLATELET 76 x1000/uL (130-400)
[2020-03-26 13:20] LABS: HEMATOCRIT 23.3 % (42.0-52.0); HEMOGLOBIN 7.9 g/dL (14.0-18.0)
[2020-03-26 15:41] LABS: BG BASE EXCESS -0.8 mmol/L (-2.0-2.0); BG CARBOXYHEMOGLOBIN 0.3 % (0.5-1.5); BG DEOXYHEMOGLOBIN 2.3 % (0.0-5.0); BG FRACTION INSPIRED OXYGEN 30; BG HCO3 ACT 23.9 mmol/L (22.0-26.0); BG METHEMOGLOBIN 0.6 % (0.0-1.5); BG OXYGEN SATURATION 97.7 % (92.0-98.5); BG OXYHEMOGLOBIN 96.8 % (94.0-97.0); BG PCO2 39.4 mmHg (35.0-45.0); BG SAMPLE SITE RIGHT RADIAL; BG TOTAL HEMOGLOBIN 8.2 g/dL (12.0-18.0); BG TOTAL RESPIRATORY RATE 21 b/min; BG VENT MODE VENT - CPAP
[2020-03-26] MEDS: FLUCONAZOLE 200 MG/100ML BAG 100 ML IV SCH (16:50)
[2020-03-26] MEDS: CEFEPIME 2,000 MG in DEXT 5% WATER 100 ML IV SCH (20:56)
[2020-03-26] MEDS: MORPHINE SULFATE 2 MG/ML CPJ (NOT FOR IM USE) IV PRN (21:10)
[2020-03-26 21:24] LABS: HEMATOCRIT 22.7 % (42.0-52.0); HEMOGLOBIN 7.8 g/dL (14.0-18.0); MEAN CORPUSCULAR HEMOGLOBIN 31.3 pg (28.0-32.0); MEAN CORPUSCULAR VOLUME 91.3 fL (80.0-94.0); PLATELET 78 x1000/uL (130-400); RED BLOOD CELL COUNT 2.49 mill/uL (4.7-6.1); RED CELL DISTRIBUTION WIDTH 14.7 % (11.6-14.6)
[2020-03-26] MEDS: METOPROLOL TARTRATE 5MG/5ML VIAL IV PRN (22:28)
[2020-03-27] VITALS (88 sets, daily range): BP systolic 97–147; BP diastolic 62–98
[2020-03-27] MEDS: MORPHINE SULFATE 2 MG/ML CPJ (NOT FOR IM USE) IV PRN ×2 (01:43→02:15)
[2020-03-27] MEDS: IPRATROPIUM/ALBUTEROL 0.5-3(2.5)MG/3ML NEB HHN SCH ×4 (02:20→20:29)
[2020-03-27] MEDS: FENTANYL CITRATE/PF 1,000 MCG in SODIUM CHLORIDE 0.9% 80 ML IV PRN ×2 (02:30→14:35)
[2020-03-27] MEDS: BLOOD SUGAR DIAGNOSTIC STRIP TEST SCH ×4 (06:00→18:59)
[2020-03-27] MEDS: MIDODRINE HCL 2.5MG TABLET PO SCH ×3 (06:00→22:00)
[2020-03-27 06:21] LABS: HEMOGLOBIN. 7.3 g/dL (14.0-18.0); MEAN CORPUSCULAR HEMOGLOBIN 32.6 pg (28.0-32.0); MEAN CORPUSCULAR VOLUME 93.3 fL (80.0-94.0); MEAN PLATELET VOLUME 10.6 fl (7.4-10.4); PLATELET 69 x1000/uL (130-400); RED BLOOD CELL COUNT 2.24 mill/uL (4.7-6.1); RED CELL DISTRIBUTION WIDTH 14.7 % (11.6-14.6)
[2020-03-27 06:28] LABS: PHOSPHORUS 4.3 mg/dL (2.5-4.9)
[2020-03-27] MEDS ORDERED: MAGNESIUM 4 G PREMIX 100 ML IV NR (08:00)
[2020-03-27] MEDS: PANTOPRAZOLE SODIUM 40 MG/VIAL IV SCH ×2 (08:39→21:11)
[2020-03-27] MEDS: HYDROCORTISONE ACETATE 25MG SUPP PR SCH ×3 (08:40→17:06)
[2020-03-27] MEDS: CALCITRIOL 1 MCG/ML ORAL SYR NG SCH (09:00)
[2020-03-27] MEDS: ATOVAQUONE 750 MG/5 ML ORAL.SUSP PO SCH (09:00)
[2020-03-27] MEDS: METOPROLOL TARTRATE 25MG TABLET PO SCH (09:00)
[2020-03-27 09:42] LABS: PLATELET ESTIMATE DECREASED
[2020-03-27] MEDS ORDERED: DILTIAZEM HCL 5MG/ML 5ML VIAL IV PRN (11:30)
[2020-03-27] MEDS: FLUCONAZOLE 200 MG/100ML BAG 100 ML IV SCH (17:06)
[2020-03-27 18:10] LABS: HEMATOCRIT 28.1 % (42.0-52.0); HEMOGLOBIN 9.5 g/dL (14.0-18.0)
[2020-03-27 18:59] LABS: HEPATITIS B SURFACE ANTIGEN NEGATIVE
[2020-03-27 19:28] LABS: HEPATITIS A AB IGM NEGATIVE (NEGATIVE)
[2020-03-27] MEDS: CEFEPIME 2,000 MG in DEXT 5% WATER 100 ML IV SCH (20:00)
[2020-03-27] MEDS: METOPROLOL TARTRATE 50MG TABLET PO SCH (21:12)
[2020-03-27] MEDS: ACETAMINOPHEN 650MG/20.3ML UDC PO PRN (21:16)
[2020-03-27] MEDS: DEXT 5%/0.45% NACL 1000ML 1,000 ML IV SCH (21:18)
[2020-03-28] VITALS (91 sets, daily range): BP systolic 99–160; BP diastolic 58–103
[2020-03-28] MEDS: FENTANYL CITRATE/PF 1,000 MCG in SODIUM CHLORIDE 0.9% 80 ML IV PRN ×2 (02:08→10:37)
[2020-03-28] MEDS: IPRATROPIUM/ALBUTEROL 0.5-3(2.5)MG/3ML NEB HHN SCH ×4 (02:13→20:05)
[2020-03-28] MEDS: ACETAMINOPHEN 650MG/20.3ML UDC PO PRN ×2 (03:55→21:19)
[2020-03-28 05:06] LABS: HEMATOCRIT 25.7 % (42.0-52.0); HEMOGLOBIN 8.5 g/dL (14.0-18.0); MEAN CORPUSCULAR HEMOGLOBIN 31.6 pg (28.0-32.0); MEAN CORPUSCULAR VOLUME 95.3 fL (80.0-94.0); PLATELET 69 x1000/uL (130-400); RED CELL DISTRIBUTION WIDTH 15.2 % (11.6-14.6)
[2020-03-28] MEDS: MIDODRINE HCL 2.5MG TABLET PO SCH ×3 (06:00→22:00)
[2020-03-28] MEDS: BLOOD SUGAR DIAGNOSTIC STRIP TEST SCH ×5 (06:55→23:17)
[2020-03-28] MEDS: PANTOPRAZOLE SODIUM 40 MG/VIAL IV SCH ×2 (08:16→20:37)
[2020-03-28] MEDS: CALCITRIOL 1 MCG/ML ORAL SYR NG SCH (08:17)
[2020-03-28] MEDS: METOPROLOL TARTRATE 50MG TABLET PO SCH ×2 (08:17→20:37)
[2020-03-28] MEDS: ATOVAQUONE 750 MG/5 ML ORAL.SUSP PO SCH (08:17)
[2020-03-28] MEDS: HYDROCORTISONE ACETATE 25MG SUPP PR SCH ×3 (08:20→16:41)
[2020-03-28 13:35] LABS: INR 1.1; PROTHROMBIN TIME 11.6 sec (9.6-11.0)
[2020-03-28] MEDS: METRONIDAZOLE 250MG TABLET PO SCH ×2 (14:00→21:36)
[2020-03-28] MEDS ORDERED: FENTANYL CITRATE/PF 50MCG/ML 2ML VIAL ONE (14:42)
[2020-03-28] MEDS ORDERED: MIDAZOLAM HCL 5 MG/5 ML VIAL IV PRN (14:42)
[2020-03-28] MEDS ORDERED: MIDAZOLAM HCL 5 MG/5 ML VIAL ONE (14:42)
[2020-03-28] MEDS: FLUCONAZOLE 200 MG/100ML BAG 100 ML IV SCH (16:40)
[2020-03-28] MEDS: METOCLOPRAMIDE HCL 10MG/2ML VIAL IV SCH ×2 (17:19→23:17)
[2020-03-28] MEDS ORDERED: VANCOMYCIN 1 G PREMIX 200 ML IV NR (18:00)
[2020-03-28] MEDS: DEXT 5%/0.45% NACL 1000ML 1,000 ML IV SCH (21:04)
[2020-03-28] MEDS: LORAZEPAM 2MG/ML CPJ IV PRN (21:39)
[2020-03-28] MEDS: CEFEPIME 2,000 MG in DEXT 5% WATER 100 ML IV SCH (23:40)
[2020-03-29] VITALS (78 sets, daily range): BP systolic 115–179; BP diastolic 61–109
[2020-03-29] MEDS: IPRATROPIUM/ALBUTEROL 0.5-3(2.5)MG/3ML NEB HHN SCH ×4 (02:11→20:26)
[2020-03-29] MEDS: MIDODRINE HCL 2.5MG TABLET PO SCH ×3 (06:00→22:00)
[2020-03-29] MEDS: METRONIDAZOLE 250MG TABLET PO SCH ×3 (06:15→21:50)
[2020-03-29] MEDS: BLOOD SUGAR DIAGNOSTIC STRIP TEST SCH ×3 (06:15→18:28)
[2020-03-29 07:57] LABS: HEMATOCRIT. 29.9 % (42.0-52.0); HEMOGLOBIN. 10.2 g/dL (14.0-18.0); MEAN CORPUSCULAR HEMOGLOBIN 30.6 pg (28.0-32.0); MEAN CORPUSCULAR VOLUME 89.5 fL (80.0-94.0); MEAN PLATELET VOLUME 10.5 fl (7.4-10.4); PLATELET 64 x1000/uL (130-400); RED BLOOD CELL COUNT 3.34 mill/uL (4.7-6.1); RED CELL DISTRIBUTION WIDTH 14.5 % (11.6-14.6)
[2020-03-29 08:04] LABS: CHLORIDE 112 mEq/L (98-107)
[2020-03-29 08:09] LABS: PHOSPHORUS 1.6 mg/dL (2.5-4.9)
[2020-03-29] MEDS: ACETAMINOPHEN 650MG/20.3ML UDC PO PRN ×2 (08:41→10:37)
[2020-03-29] MEDS: PANTOPRAZOLE SODIUM 40 MG/VIAL IV SCH ×2 (08:42→21:50)
[2020-03-29] MEDS: CALCITRIOL 1 MCG/ML ORAL SYR NG SCH (08:43)
[2020-03-29] MEDS: METOCLOPRAMIDE HCL 10MG/2ML VIAL IV SCH ×2 (08:43→12:19)
[2020-03-29] MEDS: METOPROLOL TARTRATE 50MG TABLET PO SCH ×2 (08:44→21:53)
[2020-03-29] MEDS: LORAZEPAM 2MG/ML CPJ IV PRN (08:44)
[2020-03-29] MEDS: HYDROCORTISONE ACETATE 25MG SUPP PR SCH ×3 (08:46→16:07)
[2020-03-29] MEDS: ATOVAQUONE 750 MG/5 ML ORAL.SUSP PO SCH (08:47)
[2020-03-29 11:33] LABS: NUCLEATED RED BLOOD CELLS 1 /100 WBC
[2020-03-29 11:34] LABS: PLATELET ESTIMATE DECREASED
[2020-03-29] MEDS: DEXT 5%/0.45% NACL 1000ML 1,000 ML IV SCH (12:28)
[2020-03-29] MEDS: FLUCONAZOLE 200 MG/100ML BAG 100 ML IV SCH (16:08)
[2020-03-29] MEDS: CEFEPIME 2,000 MG in DEXT 5% WATER 100 ML IV SCH (21:50)
[2020-03-30] VITALS (11 sets, daily range): BP systolic 130–146; BP diastolic 77–107
[2020-03-30] MEDS: BLOOD SUGAR DIAGNOSTIC STRIP TEST SCH ×4 (01:29→16:28)
[2020-03-30] MEDS: MIDODRINE HCL 2.5MG TABLET PO SCH ×3 (05:35→22:00)
[2020-03-30] MEDS: METRONIDAZOLE 250MG TABLET PO SCH ×3 (05:35→22:10)
[2020-03-30 07:20] LABS: HEMATOCRIT. 25.5 % (42.0-52.0); HEMOGLOBIN. 8.7 g/dL (14.0-18.0); MEAN CORPUSCULAR VOLUME 90.8 fL (80.0-94.0); MEAN PLATELET VOLUME 10.6 fl (7.4-10.4); PLATELET 63 x1000/uL (130-400); RED BLOOD CELL COUNT 2.81 mill/uL (4.7-6.1); RED CELL DISTRIBUTION WIDTH 14.9 % (11.6-14.6)
[2020-03-30 07:34] LABS: PHOSPHORUS 2.8 mg/dL (2.5-4.9)
[2020-03-30] MEDS: IPRATROPIUM/ALBUTEROL 0.5-3(2.5)MG/3ML NEB HHN SCH ×3 (08:33→20:24)
[2020-03-30] MEDS: PANTOPRAZOLE SODIUM 40 MG/VIAL IV SCH ×2 (08:49→20:02)
[2020-03-30] MEDS: ATOVAQUONE 750MG/5ML ORAL SYRINGE NG SCH (08:49)
[2020-03-30] MEDS: HYDROCORTISONE ACETATE 25MG SUPP PR SCH ×3 (08:50→16:30)
[2020-03-30] MEDS: METOPROLOL TARTRATE 50MG TABLET PO SCH ×2 (08:52→20:06)
[2020-03-30] MEDS: CALCITRIOL 1 MCG/ML ORAL SYR NG SCH (09:27)
[2020-03-30] MEDS: MORPHINE SULFATE 2 MG/ML CPJ (NOT FOR IM USE) IV PRN ×2 (10:59→20:09)
[2020-03-30 12:25] LABS: PLATELET ESTIMATE DECREASED
[2020-03-30] MEDS: LORAZEPAM 2MG/ML CPJ IV PRN (16:30)
[2020-03-30] MEDS: FLUCONAZOLE 200 MG/100ML BAG 100 ML IV SCH (16:41)
[2020-03-30] MEDS: METOPROLOL TARTRATE 5MG/5ML VIAL IV PRN (18:43)
[2020-03-30] MEDS: CEFEPIME 2,000 MG in DEXT 5% WATER 100 ML IV SCH (20:01)
[2020-03-31] VITALS (11 sets, daily range): BP systolic 122–158; BP diastolic 65–94
[2020-03-31] MEDS: BLOOD SUGAR DIAGNOSTIC STRIP TEST SCH ×4 (00:39→18:38)
[2020-03-31] MEDS: MORPHINE SULFATE 2 MG/ML CPJ (NOT FOR IM USE) IV PRN ×2 (00:58→21:58)
[2020-03-31] MEDS: IPRATROPIUM/ALBUTEROL 0.5-3(2.5)MG/3ML NEB HHN SCH ×4 (01:53→20:49)
[2020-03-31 05:18] LABS: HEMATOCRIT. 24.8 % (42.0-52.0); HEMOGLOBIN. 8.3 g/dL (14.0-18.0); MEAN CORPUSCULAR VOLUME 93.2 fL (80.0-94.0); MEAN PLATELET VOLUME 10.5 fl (7.4-10.4); PLATELET 56 x1000/uL (130-400); RED BLOOD CELL COUNT 2.66 mill/uL (4.7-6.1); RED CELL DISTRIBUTION WIDTH 14.7 % (11.6-14.6)
[2020-03-31] MEDS: METRONIDAZOLE 250MG TABLET PO SCH ×3 (05:19→21:58)
[2020-03-31] MEDS: MIDODRINE HCL 2.5MG TABLET PO SCH ×3 (05:22→21:58)
[2020-03-31 05:28] LABS: PHOSPHORUS 2.8 mg/dL (2.5-4.9)
[2020-03-31] MEDS: HYDROCORTISONE ACETATE 25MG SUPP PR SCH ×3 (08:18→17:07)
[2020-03-31] MEDS: CALCITRIOL 1 MCG/ML ORAL SYR NG SCH (08:18)
[2020-03-31] MEDS: PANTOPRAZOLE SODIUM 40 MG/VIAL IV SCH ×2 (08:18→20:55)
[2020-03-31] MEDS: ATOVAQUONE 750MG/5ML ORAL SYRINGE NG SCH (08:18)
[2020-03-31] MEDS: METOPROLOL TARTRATE 50MG TABLET PO SCH ×2 (08:18→20:56)
[2020-03-31 10:34] LABS: PLATELET ESTIMATE DECREASED
[2020-03-31] MEDS ORDERED: POTASSIUM CHLORIDE INJ 40 MEQ in DEXT 5% WATER 250 ML IV NR (12:00)
[2020-03-31] MEDS: ACETAMINOPHEN 650MG/20.3ML UDC PO PRN (15:49)
[2020-03-31] MEDS: CEFEPIME 2,000 MG in DEXT 5% WATER 100 ML IV SCH (20:55)
[2020-03-31] MEDS: MESALAMINE 1000MG SUPPOSITORY PR SCH (21:58)
[2020-04-01] VITALS (12 sets, daily range): BP systolic 124–147; BP diastolic 68–93
[2020-04-01] MEDS: BLOOD SUGAR DIAGNOSTIC STRIP TEST SCH ×4 (00:16→17:36)
[2020-04-01] MEDS: METOCLOPRAMIDE HCL 10MG/2ML VIAL IV SCH ×4 (00:16→17:43)
[2020-04-01] MEDS: IPRATROPIUM/ALBUTEROL 0.5-3(2.5)MG/3ML NEB HHN SCH ×5 (01:44→19:37)
[2020-04-01] MEDS: MIDODRINE HCL 2.5MG TABLET PO SCH ×3 (06:00→22:00)
[2020-04-01] MEDS: METRONIDAZOLE 250MG TABLET PO SCH ×2 (06:19→13:17)
[2020-04-01] MEDS: HYDROCORTISONE ACETATE 25MG SUPP PR SCH ×3 (08:26→17:43)
[2020-04-01] MEDS: ATOVAQUONE 750MG/5ML ORAL SYRINGE NG SCH (08:26)
[2020-04-01] MEDS: CALCITRIOL 1 MCG/ML ORAL SYR NG SCH (08:26)
[2020-04-01] MEDS: PANTOPRAZOLE SODIUM 40 MG/VIAL IV SCH ×2 (08:26→22:11)
[2020-04-01] MEDS: MORPHINE SULFATE 2 MG/ML CPJ (NOT FOR IM USE) IV PRN ×2 (08:27→14:18)
[2020-04-01] MEDS: METOPROLOL TARTRATE 50MG TABLET PO SCH ×2 (08:43→22:12)
[2020-04-01] MEDS ORDERED: METOCLOPRAMIDE HCL 10MG/2ML VIAL IV SCH (12:00)
[2020-04-01 12:23] LABS: CHLORIDE 112 mEq/L (98-107); HEMATOCRIT. 23.7 % (42.0-52.0); HEMOGLOBIN. 8.1 g/dL (14.0-18.0); MEAN CORPUSCULAR HEMOGLOBIN 31.1 pg (28.0-32.0); MEAN CORPUSCULAR VOLUME 91.1 fL (80.0-94.0); MEAN PLATELET VOLUME 10.9 fl (7.4-10.4); PLATELET 61 x1000/uL (130-400); RED CELL DISTRIBUTION WIDTH 14.7 % (11.6-14.6)
[2020-04-01 12:30] LABS: PHOSPHORUS 2.1 mg/dL (2.5-4.9)
[2020-04-01 12:32] LABS: CREATINE KINASE 38 IU/L (39-308)
[2020-04-01 15:14] LABS: BG BASE EXCESS 3.8 mmol/L (-2.0-2.0); BG CARBOXYHEMOGLOBIN 0.3 % (0.5-1.5); BG DEOXYHEMOGLOBIN 2.6 % (0.0-5.0); BG FRACTION INSPIRED OXYGEN 30; BG HCO3 ACT 27.6 mmol/L (22.0-26.0); BG METHEMOGLOBIN 0.4 % (0.0-1.5); BG OXYGEN SATURATION 97.4 % (92.0-98.5); BG OXYHEMOGLOBIN 96.7 % (94.0-97.0); BG PCO2 38.4 mmHg (35.0-45.0); BG PH 7.475 (7.350-7.450); BG PO2 96.4 mmHg (75.0-100.0); BG SAMPLE SITE RIGHT RADIAL; BG TOTAL HEMOGLOBIN 9.1 g/dL (12.0-18.0); BG VENT MODE VENT - AC
[2020-04-01] MEDS ORDERED: MAGNESIUM 1 G PREMIX 100 ML IV SCH (16:00)
[2020-04-01] MEDS ORDERED: KCL 20MEQ/100ML PREMIX 100 ML IV SCH (16:00)
[2020-04-01] MEDS: AMOXICILLIN/POTASSIUM CLAVULANATE 500/125MG TAB PO SCH (17:43)
[2020-04-01 18:06] LABS: PLATELET ESTIMATE DECREASED
[2020-04-01] MEDS: MESALAMINE 1000MG SUPPOSITORY PR SCH (22:12)
[2020-04-02] VITALS (11 sets, daily range): BP systolic 108–141; BP diastolic 60–82
[2020-04-02] MEDS: METOCLOPRAMIDE HCL 10MG/2ML VIAL IV SCH ×4 (00:40→17:46)
[2020-04-02] MEDS: IPRATROPIUM/ALBUTEROL 0.5-3(2.5)MG/3ML NEB HHN SCH ×4 (01:43→20:23)
[2020-04-02] MEDS: AMOXICILLIN/POTASSIUM CLAVULANATE 500/125MG TAB PO SCH ×2 (05:39→17:46)
[2020-04-02] MEDS: MIDODRINE HCL 2.5MG TABLET PO SCH ×3 (06:00→22:50)
[2020-04-02] MEDS: BLOOD SUGAR DIAGNOSTIC STRIP TEST SCH ×3 (06:00→12:00)
[2020-04-02 06:24] LABS: PHOSPHORUS 2.6 mg/dL (2.5-4.9)
[2020-04-02] MEDS: MORPHINE SULFATE 2 MG/ML CPJ (NOT FOR IM USE) IV PRN ×3 (06:41→20:34)
[2020-04-02 06:50] LABS: HEMOGLOBIN. 7.7 g/dL (14.0-18.0); MEAN CORPUSCULAR HEMOGLOBIN 31.3 pg (28.0-32.0); MEAN CORPUSCULAR VOLUME 93.3 fL (80.0-94.0); MEAN PLATELET VOLUME 11.3 fl (7.4-10.4); PLATELET 69 x1000/uL (130-400); RED BLOOD CELL COUNT 2.47 mill/uL (4.7-6.1); RED CELL DISTRIBUTION WIDTH 14.9 % (11.6-14.6)
[2020-04-02] MEDS: CALCITRIOL 1 MCG/ML ORAL SYR NG SCH (08:43)
[2020-04-02] MEDS: HYDROCORTISONE ACETATE 25MG SUPP PR SCH ×3 (08:43→17:52)
[2020-04-02] MEDS: ATOVAQUONE 750MG/5ML ORAL SYRINGE NG SCH (08:43)
[2020-04-02] MEDS: PANTOPRAZOLE SODIUM 40 MG/VIAL IV SCH ×2 (08:43→20:33)
[2020-04-02] MEDS: METOPROLOL TARTRATE 50MG TABLET PO SCH ×2 (08:44→20:33)
[2020-04-02 11:47] LABS: PLATELET ESTIMATE DECREASED
[2020-04-02 17:10] LABS: OVA & PARASITE EXAM Final report (.)
[2020-04-02] MEDS: ACETAMINOPHEN 650MG/20.3ML UDC PO PRN (17:53)
[2020-04-02] MEDS: MESALAMINE 1000MG SUPPOSITORY PR SCH (20:33)
[2020-04-03] VITALS (15 sets, daily range): BP systolic 97–147; BP diastolic 53–86
[2020-04-03] MEDS: ACETAMINOPHEN 650MG/20.3ML UDC PO PRN (00:11)
[2020-04-03] MEDS: METOCLOPRAMIDE HCL 10MG/2ML VIAL IV SCH ×5 (00:11→23:33)
[2020-04-03] MEDS: IPRATROPIUM/ALBUTEROL 0.5-3(2.5)MG/3ML NEB HHN SCH ×4 (02:42→20:19)
[2020-04-03] MEDS: AMOXICILLIN/POTASSIUM CLAVULANATE 500/125MG TAB PO SCH (05:52)
[2020-04-03] MEDS: MORPHINE SULFATE 2 MG/ML CPJ (NOT FOR IM USE) IV PRN ×2 (05:53→21:31)
[2020-04-03] MEDS: MIDODRINE HCL 2.5MG TABLET PO SCH ×3 (05:53→22:00)
[2020-04-03 06:35] LABS: HEMOGLOBIN. 7.4 g/dL (14.0-18.0); MEAN CORPUSCULAR HEMOGLOBIN 31.5 pg (28.0-32.0); MEAN CORPUSCULAR VOLUME 93.6 fL (80.0-94.0); MEAN PLATELET VOLUME 10.6 fl (7.4-10.4); RED BLOOD CELL COUNT 2.35 mill/uL (4.7-6.1); RED CELL DISTRIBUTION WIDTH 14.4 % (11.6-14.6)
[2020-04-03 06:41] LABS: PHOSPHORUS 3.2 mg/dL (2.5-4.9)
[2020-04-03 08:37] LABS: PLATELET 50 x1000/uL (130-400)
[2020-04-03] MEDS: HYDROCORTISONE ACETATE 25MG SUPP PR SCH ×4 (09:00→17:00)
[2020-04-03] MEDS: CALCITRIOL 1 MCG/ML ORAL SYR NG SCH (09:53)
[2020-04-03] MEDS: PANTOPRAZOLE SODIUM 40 MG/VIAL IV SCH ×2 (09:53→21:31)
[2020-04-03] MEDS ORDERED: METOPROLOL TARTRATE 5MG/5ML VIAL IV SCH (10:15)
[2020-04-03] MEDS ORDERED: POTASSIUM CHLORIDE 20MEQ/PACKET PO SCH (10:15)
[2020-04-03] MEDS: METOPROLOL TARTRATE 50MG TABLET PO SCH ×2 (10:53→21:31)
[2020-04-03] MEDS: ATOVAQUONE 750MG/5ML ORAL SYRINGE NG SCH (10:53)
[2020-04-03 12:12] LABS: BG BASE EXCESS 5.1 mmol/L (-2.0-2.0); BG CARBOXYHEMOGLOBIN 0.3 % (0.5-1.5); BG DEOXYHEMOGLOBIN 3.4 % (0.0-5.0); BG FRACTION INSPIRED OXYGEN 30; BG METHEMOGLOBIN 0.4 % (0.0-1.5); BG OXYGEN SATURATION 96.6 % (92.0-98.5); BG OXYHEMOGLOBIN 95.9 % (94.0-97.0); BG PH 7.521 (7.350-7.450); BG PO2 80.6 mmHg (75.0-100.0); BG SAMPLE SITE RIGHT RADIAL; BG TOTAL HEMOGLOBIN 11.3 g/dL (12.0-18.0); BG VENT MODE VENT - AC
[2020-04-03] MEDS: DILTIAZEM HCL 30MG TABLET PO SCH ×2 (13:00→22:49)
[2020-04-03 13:31] LABS: NUCLEATED RED BLOOD CELLS 1 /100 WBC
[2020-04-03 13:32] LABS: PLATELET ESTIMATE MARKEDLY DECREASED
[2020-04-03] MEDS ORDERED: LORAZEPAM 2MG/ML CPJ IV PRN (16:45)
[2020-04-03] MEDS: MEROPENEM 500 MG in SODIUM CHLORIDE 0.9% 50 ML IV SCH (16:52)
[2020-04-03] MEDS ORDERED: VANCOMYCIN 1500MG in DEXTROSE 5% WATER 250ML IV SCH (17:00)
[2020-04-03] MEDS ORDERED: ONDANSETRON HCL 4MG/2ML INJ IV PRN (21:15)
[2020-04-03] MEDS: MESALAMINE 1000MG SUPPOSITORY PR SCH (21:31)
[2020-04-04] VITALS (12 sets, daily range): BP systolic 75–135; BP diastolic 42–85
[2020-04-04] MEDS: IPRATROPIUM/ALBUTEROL 0.5-3(2.5)MG/3ML NEB HHN SCH ×4 (02:13→21:37)
[2020-04-04] MEDS: MIDODRINE HCL 2.5MG TABLET PO SCH ×3 (05:47→21:18)
[2020-04-04] MEDS: METOCLOPRAMIDE HCL 10MG/2ML VIAL IV SCH ×3 (05:47→17:49)
[2020-04-04] MEDS: DILTIAZEM HCL 30MG TABLET PO SCH ×3 (05:47→21:18)
[2020-04-04 06:47] LABS: HEMATOCRIT. 29.5 % (42.0-52.0); HEMOGLOBIN. 9.8 g/dL (14.0-18.0); MEAN CORPUSCULAR VOLUME 93.3 fL (80.0-94.0); MEAN PLATELET VOLUME 10.9 fl (7.4-10.4); RED BLOOD CELL COUNT 3.16 mill/uL (4.7-6.1); RED CELL DISTRIBUTION WIDTH 14.9 % (11.6-14.6)
[2020-04-04 06:51] LABS: CHLORIDE 112 mEq/L (98-107)
[2020-04-04 06:58] LABS: PLATELET 40 x1000/uL (130-400)
[2020-04-04] MEDS: PANTOPRAZOLE SODIUM 40 MG/VIAL IV SCH ×2 (09:42→21:19)
[2020-04-04] MEDS: METOPROLOL TARTRATE 50MG TABLET PO SCH ×2 (09:42→21:19)
[2020-04-04] MEDS: CALCITRIOL 1 MCG/ML ORAL SYR NG SCH (09:42)
[2020-04-04] MEDS: ATOVAQUONE 750MG/5ML ORAL SYRINGE NG SCH (09:42)
[2020-04-04] MEDS: HYDROCORTISONE ACETATE 25MG SUPP PR SCH ×3 (09:42→17:00)
[2020-04-04] MEDS: BISMUTH SUBSALICYLATE 262 MG/15 ML-120ML BOTTLE GT SCH ×2 (09:42→17:48)
[2020-04-04 11:49] LABS: PLATELET ESTIMATE MARKEDLY DECREASED
[2020-04-04] MEDS: MEROPENEM 500 MG in SODIUM CHLORIDE 0.9% 50 ML IV SCH (17:48)
[2020-04-04 19:04] LABS: CREATININE URINE (RAW) 75.9 mg/dl
[2020-04-04 20:09] LABS: CLARITY URINE TURBID (CLEAR); COLOR URINE DARK YELLOW (YELLOW); KETONES URINE NEGATIVE (NEGATIVE); LEUKOCYTE ESTERASE URINE 1+ (NEGATIVE); NITRITE URINE POSITIVE (NEGATIVE); OCCULT BLOOD URINE 2+ (NEGATIVE); PROTEIN URINE 3+ (NEGATIVE); SPECIFIC GRAVITY URINE 1.067 (1.005-1.030); UROBILINOGEN URINE 0.2 E.U./dL (0.2-1.0)
[2020-04-04] MEDS: MESALAMINE 1000MG SUPPOSITORY PR SCH (21:18)
[2020-04-05] VITALS (12 sets, daily range): BP systolic 100–134; BP diastolic 56–74
[2020-04-05] MEDS: METOCLOPRAMIDE HCL 10MG/2ML VIAL IV SCH ×5 (00:16→23:13)
[2020-04-05] MEDS: DILTIAZEM HCL 30MG TABLET PO SCH ×3 (05:11→21:40)
[2020-04-05] MEDS: MIDODRINE HCL 2.5MG TABLET PO SCH ×3 (05:12→21:41)
[2020-04-05 08:00] LABS: HEMATOCRIT. 25.7 % (42.0-52.0); HEMOGLOBIN. 8.6 g/dL (14.0-18.0); MEAN CORPUSCULAR HEMOGLOBIN 30.3 pg (28.0-32.0); MEAN PLATELET VOLUME 10.7 fl (7.4-10.4); PLATELET 57 x1000/uL (130-400); RED BLOOD CELL COUNT 2.85 mill/uL (4.7-6.1); RED CELL DISTRIBUTION WIDTH 14.4 % (11.6-14.6)
[2020-04-05 08:16] LABS: PHOSPHORUS 3.5 mg/dL (2.5-4.9)
[2020-04-05] MEDS: IPRATROPIUM/ALBUTEROL 0.5-3(2.5)MG/3ML NEB HHN SCH ×3 (08:43→20:22)
[2020-04-05] MEDS: BISMUTH SUBSALICYLATE 262 MG/15 ML-120ML BOTTLE GT SCH ×2 (08:45→17:45)
[2020-04-05] MEDS: ACETAMINOPHEN 650MG/20.3ML UDC PO PRN (08:46)
[2020-04-05] MEDS: HYDROCORTISONE ACETATE 25MG SUPP PR SCH ×3 (08:46→17:35)
[2020-04-05] MEDS: CALCITRIOL 1 MCG/ML ORAL SYR NG SCH (08:46)
[2020-04-05] MEDS: METOPROLOL TARTRATE 50MG TABLET PO SCH ×2 (08:47→21:41)
[2020-04-05] MEDS: PANTOPRAZOLE SODIUM 40 MG/VIAL IV SCH ×2 (08:53→21:40)
[2020-04-05 13:56] LABS: PLATELET ESTIMATE DECREASED
[2020-04-05] MEDS: MEROPENEM 500 MG in SODIUM CHLORIDE 0.9% 50 ML IV SCH (15:11)
[2020-04-05] MEDS: MORPHINE SULFATE 2 MG/ML CPJ (NOT FOR IM USE) IV PRN (17:50)
[2020-04-05] MEDS ORDERED: VANCOMYCIN 1 G PREMIX 200 ML IV NR (18:00)
[2020-04-05] MEDS: MESALAMINE 1000MG SUPPOSITORY PR SCH (21:40)
[2020-04-06] VITALS (14 sets, daily range): BP systolic 112–128; BP diastolic 53–80
[2020-04-06] MEDS: IPRATROPIUM/ALBUTEROL 0.5-3(2.5)MG/3ML NEB HHN SCH ×2 (01:34→08:04)
[2020-04-06] MEDS: METOCLOPRAMIDE HCL 10MG/2ML VIAL IV SCH ×3 (06:10→18:12)
[2020-04-06] MEDS: MIDODRINE HCL 2.5MG TABLET PO SCH (06:10)
[2020-04-06] MEDS: DILTIAZEM HCL 30MG TABLET PO SCH ×3 (06:10→18:11)
[2020-04-06 08:07] LABS: HEMATOCRIT. 26.1 % (42.0-52.0); HEMOGLOBIN. 8.8 g/dL (14.0-18.0); MEAN CORPUSCULAR HEMOGLOBIN 30.8 pg (28.0-32.0); MEAN CORPUSCULAR VOLUME 91.1 fL (80.0-94.0); MEAN PLATELET VOLUME 11.2 fl (7.4-10.4); PLATELET 54 x1000/uL (130-400); RED BLOOD CELL COUNT 2.87 mill/uL (4.7-6.1); RED CELL DISTRIBUTION WIDTH 14.4 % (11.6-14.6)
[2020-04-06 08:26] LABS: PHOSPHORUS 3.3 mg/dL (2.5-4.9)
[2020-04-06] MEDS: BISMUTH SUBSALICYLATE 262 MG/15 ML-120ML BOTTLE GT SCH ×2 (09:00→20:14)
[2020-04-06] MEDS ORDERED: POTASSIUM CHLORIDE INJ 40 MEQ in DEXT 5% WATER 250 ML IV SCH (09:00)
[2020-04-06] MEDS ORDERED: MAGNESIUM 2 G PREMIX 50 ML IV SCH (09:00)
[2020-04-06] MEDS: PANTOPRAZOLE SODIUM 40 MG/VIAL IV SCH ×2 (09:12→20:15)
[2020-04-06] MEDS: HYDROCORTISONE ACETATE 25MG SUPP PR SCH ×3 (09:12→17:00)
[2020-04-06] MEDS: CALCITRIOL 1 MCG/ML ORAL SYR NG SCH (09:13)
[2020-04-06] MEDS: METOPROLOL TARTRATE 50MG TABLET PO SCH ×2 (09:13→20:15)
[2020-04-06] MEDS ORDERED: MIDODRINE HCL 5MG TABLET PO NR (12:30)
[2020-04-06] MEDS ORDERED: SODIUM CHLORIDE 0.9% 250 ML IV ONE (12:30)
[2020-04-06 12:45] LABS: PLATELET ESTIMATE MARKEDLY DECREASED
[2020-04-06] MEDS ORDERED: HYDROCODONE/ACETAMINOPHEN 5/325MG TABLET PO PRN (12:45)
[2020-04-06] MEDS: MORPHINE SULFATE 2 MG/ML CPJ (NOT FOR IM USE) IV PRN ×2 (13:11→20:43)
[2020-04-06] MEDS: MIDODRINE HCL 5MG TABLET PO SCH ×2 (13:12→22:00)
[2020-04-06] MEDS: IPRATROPIUM BROMIDE (0.02%) 0.5MG/2.5ML NEB HHN SCH ×2 (14:25→19:58)
[2020-04-06] MEDS ORDERED: [UNRECOGNIZED DRUG - REMARK] XX SCH (17:15)
[2020-04-06] MEDS: FLUCONAZOLE 100MG TABLET PO SCH (18:11)
[2020-04-06] MEDS: ACETAMINOPHEN 650MG/20.3ML UDC PO PRN (18:12)
[2020-04-06] MEDS: MEROPENEM 500 MG in SODIUM CHLORIDE 0.9% 50 ML IV SCH (18:12)
[2020-04-06] MEDS: ATOVAQUONE 750MG/5ML ORAL SYRINGE NG SCH (20:14)
[2020-04-06] MEDS: MESALAMINE 1000MG SUPPOSITORY PR SCH (20:15)
[2020-04-07] VITALS (20 sets, daily range): BP systolic 94–135; BP diastolic 40–78
[2020-04-07] MEDS: DILTIAZEM HCL 30MG TABLET PO SCH ×3 (00:42→13:20)
[2020-04-07] MEDS: METOCLOPRAMIDE HCL 10MG/2ML VIAL IV SCH ×4 (00:42→17:50)
[2020-04-07] MEDS: IPRATROPIUM BROMIDE (0.02%) 0.5MG/2.5ML NEB HHN SCH ×4 (01:50→20:32)
[2020-04-07] MEDS: MIDODRINE HCL 5MG TABLET PO SCH ×2 (05:54→13:19)
[2020-04-07 06:41] LABS: HEMOGLOBIN. 9.8 g/dL (14.0-18.0); MEAN CORPUSCULAR HEMOGLOBIN 30.8 pg (28.0-32.0); MEAN CORPUSCULAR VOLUME 91.3 fL (80.0-94.0); MEAN PLATELET VOLUME 11.2 fl (7.4-10.4); PLATELET 69 x1000/uL (130-400); RED BLOOD CELL COUNT 3.18 mill/uL (4.7-6.1); RED CELL DISTRIBUTION WIDTH 14.4 % (11.6-14.6)
[2020-04-07] MEDS: METOPROLOL TARTRATE 50MG TABLET PO SCH ×2 (09:20→21:41)
[2020-04-07] MEDS: PANTOPRAZOLE SODIUM 40 MG/VIAL IV SCH ×2 (09:21→21:40)
[2020-04-07] MEDS: ATOVAQUONE 750MG/5ML ORAL SYRINGE NG SCH (09:22)
[2020-04-07] MEDS: CALCITRIOL 1 MCG/ML ORAL SYR NG SCH (09:22)
[2020-04-07] MEDS: HYDROCORTISONE ACETATE 25MG SUPP PR SCH ×3 (09:23→16:57)
[2020-04-07] MEDS: BISMUTH SUBSALICYLATE 262 MG/15 ML-120ML BOTTLE GT SCH ×2 (09:25→17:01)
[2020-04-07] MEDS: COLISTIMETHATE SODIUM 150MG/VIAL INH SCH ×2 (10:25→20:32)
[2020-04-07 12:04] LABS: PLATELET ESTIMATE DECREASED
[2020-04-07] MEDS: MORPHINE SULFATE 2 MG/ML CPJ (NOT FOR IM USE) IV PRN ×2 (16:09→22:30)
[2020-04-07] MEDS: FLUCONAZOLE 100MG TABLET PO SCH (17:50)
[2020-04-07] MEDS: ACETAMINOPHEN 650MG/20.3ML UDC PO PRN (21:40)
[2020-04-07] MEDS: MESALAMINE 1000MG SUPPOSITORY PR SCH (21:41)
[2020-04-08] VITALS (15 sets, daily range): BP systolic 87–130; BP diastolic 51–74
[2020-04-08] MEDS: METOCLOPRAMIDE HCL 10MG/2ML VIAL IV SCH ×4 (00:17→18:09)
[2020-04-08] MEDS: IPRATROPIUM BROMIDE (0.02%) 0.5MG/2.5ML NEB HHN SCH ×2 (02:08→09:04)
[2020-04-08] MEDS: METOPROLOL TARTRATE 50MG TABLET PO SCH ×3 (05:06→22:00)
[2020-04-08 06:56] LABS: HEMATOCRIT. 22.9 % (42.0-52.0); HEMOGLOBIN. 7.7 g/dL (14.0-18.0); MEAN CORPUSCULAR HEMOGLOBIN 30.9 pg (28.0-32.0); MEAN CORPUSCULAR VOLUME 91.3 fL (80.0-94.0); MEAN PLATELET VOLUME 10.9 fl (7.4-10.4); PLATELET 62 x1000/uL (130-400); RED BLOOD CELL COUNT 2.51 mill/uL (4.7-6.1); RED CELL DISTRIBUTION WIDTH 14.2 % (11.6-14.6)
[2020-04-08 07:10] LABS: PHOSPHORUS 4.6 mg/dL (2.5-4.9)
[2020-04-08 08:40] LABS: PLATELET ESTIMATE DECREASED
[2020-04-08] MEDS: HYDROCORTISONE ACETATE 25MG SUPP PR SCH ×3 (09:00→17:00)
[2020-04-08] MEDS: COLISTIMETHATE SODIUM 150MG/VIAL INH SCH (09:04)
[2020-04-08] MEDS: PANTOPRAZOLE SODIUM 40 MG/VIAL IV SCH ×2 (09:09→22:59)
[2020-04-08] MEDS: ATOVAQUONE 750MG/5ML ORAL SYRINGE NG SCH (09:09)
[2020-04-08] MEDS: CALCITRIOL 1 MCG/ML ORAL SYR NG SCH (09:10)
[2020-04-08] MEDS: BISMUTH SUBSALICYLATE 262 MG/15 ML-120ML BOTTLE GT SCH ×2 (09:11→17:00)
[2020-04-08] MEDS ORDERED: MINOCYCLINE HCL 100 MG CAPSULE PO SCH (10:30)
[2020-04-08] MEDS ORDERED: POTASSIUM CHLORIDE 20MEQ/PACKET PO NR (11:30)
[2020-04-08 12:43] LABS: T4 FREE 0.75 ng/dL (0.76-1.46)
[2020-04-08] MEDS ORDERED: MIDODRINE HCL 5MG TABLET PO NR (14:30)
[2020-04-08] MEDS ORDERED: SODIUM CHLORIDE 0.9% 250 ML IV ONE (15:00)
[2020-04-08] MEDS: ACETAMINOPHEN 650MG/20.3ML UDC PO PRN (16:13)
[2020-04-08] MEDS: MIDODRINE HCL 5MG TABLET PO SCH (18:10)
[2020-04-08] MEDS: FLUCONAZOLE 100MG TABLET PO SCH (18:12)
[2020-04-08] MEDS: MINOCYCLINE HCL 100 MG CAPSULE PO SCH (18:58)
[2020-04-08 21:33] LABS: HEMATOCRIT 31.1 % (42.0-52.0); HEMOGLOBIN 10.5 g/dL (14.0-18.0)
[2020-04-08] MEDS: MESALAMINE 1000MG SUPPOSITORY PR SCH (22:59)
[2020-04-09] VITALS (12 sets, daily range): BP systolic 81–134; BP diastolic 53–86
[2020-04-09] MEDS ORDERED: MIDODRINE HCL 5MG TABLET PO SCH (03:30)
[2020-04-09 05:53] LABS: INR 1.1; PROTHROMBIN TIME 11.6 sec (9.6-11.0)
[2020-04-09] MEDS: METOCLOPRAMIDE HCL 10MG/2ML VIAL IV SCH ×5 (06:04→23:02)
[2020-04-09] MEDS: METOPROLOL TARTRATE 50MG TABLET PO SCH ×3 (06:12→21:02)
[2020-04-09 06:15] LABS: HEMATOCRIT. 29.5 % (42.0-52.0); HEMOGLOBIN. 9.9 g/dL (14.0-18.0); MEAN CORPUSCULAR VOLUME 91.9 fL (80.0-94.0); MEAN PLATELET VOLUME 10.8 fl (7.4-10.4); PLATELET 70 x1000/uL (130-400); RED BLOOD CELL COUNT 3.21 mill/uL (4.7-6.1); RED CELL DISTRIBUTION WIDTH 14.8 % (11.6-14.6)
[2020-04-09 06:27] LABS: PHOSPHORUS 3.3 mg/dL (2.5-4.9)
[2020-04-09] MEDS: PANTOPRAZOLE SODIUM 40 MG/VIAL IV SCH ×2 (08:38→21:02)
[2020-04-09] MEDS: MIDODRINE HCL 5MG TABLET PO SCH ×3 (08:39→17:00)
[2020-04-09] MEDS: BISMUTH SUBSALICYLATE 262 MG/15 ML-120ML BOTTLE GT SCH ×2 (08:39→17:00)
[2020-04-09] MEDS: MINOCYCLINE HCL 100 MG CAPSULE PO SCH ×2 (08:39→17:33)
[2020-04-09] MEDS: CALCITRIOL 1 MCG/ML ORAL SYR NG SCH (08:39)
[2020-04-09] MEDS: HYDROCORTISONE ACETATE 25MG SUPP PR SCH ×3 (08:40→17:00)
[2020-04-09 08:56] LABS: BG BASE EXCESS -1.4 mmol/L (-2.0-2.0); BG CARBOXYHEMOGLOBIN 0.3 % (0.5-1.5); BG DEOXYHEMOGLOBIN 3.1 % (0.0-5.0); BG FRACTION INSPIRED OXYGEN 30; BG HCO3 ACT 21.4 mmol/L (22.0-26.0); BG METHEMOGLOBIN 0.3 % (0.0-1.5); BG OXYGEN SATURATION 96.9 % (92.0-98.5); BG OXYHEMOGLOBIN 96.3 % (94.0-97.0); BG PCO2 29.3 mmHg (35.0-45.0); BG PH 7.481 (7.350-7.450); BG SAMPLE SITE RIGHT RADIAL; BG TOTAL HEMOGLOBIN 9.9 g/dL (12.0-18.0); BG VENT MODE VENT - AC
[2020-04-09] MEDS: ATOVAQUONE 750MG/5ML ORAL SYRINGE NG SCH (10:21)
[2020-04-09] MEDS: ACETAMINOPHEN 650MG/20.3ML UDC PO PRN (13:31)
[2020-04-09] MEDS: AZTREONAM 500 MG in DEXTROSE 5% WATER 50 ML IV SCH ×2 (16:59→23:02)
[2020-04-09] MEDS: FLUCONAZOLE 100MG TABLET PO SCH (17:01)
[2020-04-09 17:12] LABS: BG BASE EXCESS -1.5 mmol/L (-2.0-2.0); BG CARBOXYHEMOGLOBIN 0.3 % (0.5-1.5); BG DEOXYHEMOGLOBIN 2.6 % (0.0-5.0); BG FRACTION INSPIRED OXYGEN 30; BG HCO3 ACT 22.4 mmol/L (22.0-26.0); BG METHEMOGLOBIN 0.4 % (0.0-1.5); BG OXYGEN SATURATION 97.4 % (92.0-98.5); BG OXYHEMOGLOBIN 96.7 % (94.0-97.0); BG PH 7.436 (7.350-7.450); BG SAMPLE SITE RIGHT RADIAL; BG TOTAL HEMOGLOBIN 9.4 g/dL (12.0-18.0); BG TOTAL RESPIRATORY RATE 28 b/min; BG VENT MODE VENT - AC
[2020-04-09 17:43] LABS: PLATELET ESTIMATE DECREASED
[2020-04-09] MEDS ORDERED: VANCOMYCIN 1250MG in DEXTROSE 5% WATER 250ML IV NR (18:00)
[2020-04-09] MEDS: MESALAMINE 1000MG SUPPOSITORY PR SCH (21:00)
[2020-04-10] VITALS (12 sets, daily range): BP systolic 112–141; BP diastolic 62–92
[2020-04-10] MEDS: METOPROLOL TARTRATE 50MG TABLET PO SCH ×3 (05:59→21:39)
[2020-04-10] MEDS: METOCLOPRAMIDE HCL 10MG/2ML VIAL IV SCH ×4 (05:59→23:56)
[2020-04-10 06:07] LABS: PHOSPHORUS 4.9 mg/dL (2.5-4.9)
[2020-04-10 06:21] LABS: HEMATOCRIT. 27.5 % (42.0-52.0); HEMOGLOBIN. 9.2 g/dL (14.0-18.0); MEAN CORPUSCULAR HEMOGLOBIN 30.9 pg (28.0-32.0); MEAN CORPUSCULAR VOLUME 92.5 fL (80.0-94.0); MEAN PLATELET VOLUME 11.5 fl (7.4-10.4); PLATELET 55 x1000/uL (130-400); RED BLOOD CELL COUNT 2.97 mill/uL (4.7-6.1); RED CELL DISTRIBUTION WIDTH 15.1 % (11.6-14.6)
[2020-04-10] MEDS: CALCITRIOL 1 MCG/ML ORAL SYR NG SCH (08:25)
[2020-04-10] MEDS: AZTREONAM 500 MG in DEXTROSE 5% WATER 50 ML IV SCH ×3 (08:25→23:55)
[2020-04-10] MEDS: HYDROCORTISONE ACETATE 25MG SUPP PR SCH ×3 (08:26→17:02)
[2020-04-10] MEDS: MINOCYCLINE HCL 100 MG CAPSULE PO SCH ×2 (08:26→17:02)
[2020-04-10] MEDS: ATOVAQUONE 750MG/5ML ORAL SYRINGE NG SCH (08:26)
[2020-04-10] MEDS: MIDODRINE HCL 5MG TABLET PO SCH ×3 (08:26→17:02)
[2020-04-10] MEDS: PANTOPRAZOLE SODIUM 40 MG/VIAL IV SCH ×2 (08:26→21:39)
[2020-04-10] MEDS: BISMUTH SUBSALICYLATE 262 MG/15 ML-120ML BOTTLE GT SCH ×2 (08:27→17:03)
[2020-04-10 09:14] LABS: PLATELET ESTIMATE DECREASED
[2020-04-10] MEDS ORDERED: POTASSIUM CHLORIDE 20MEQ TABLET SR PO NR (11:00)
[2020-04-10] MEDS ORDERED: VANCOMYCIN 750 MG PREMIX 150 ML IV SCH (17:00)
[2020-04-10] MEDS: FLUCONAZOLE 100MG TABLET PO SCH (17:02)
[2020-04-10] MEDS: IPRATROPIUM BROMIDE (0.02%) 0.5MG/2.5ML NEB HHN PRN (20:56)
[2020-04-10] MEDS: MESALAMINE 1000MG SUPPOSITORY PR SCH (21:39)
[2020-04-11] VITALS (12 sets, daily range): BP systolic 109–133; BP diastolic 65–87
[2020-04-11] MEDS: METOPROLOL TARTRATE 50MG TABLET PO SCH ×3 (05:59→21:46)
[2020-04-11] MEDS: METOCLOPRAMIDE HCL 10MG/2ML VIAL IV SCH ×3 (05:59→17:51)
[2020-04-11 06:05] LABS: HEMATOCRIT. 26.2 % (42.0-52.0); HEMOGLOBIN. 8.9 g/dL (14.0-18.0); MEAN CORPUSCULAR HEMOGLOBIN 31.6 pg (28.0-32.0); MEAN CORPUSCULAR VOLUME 93.2 fL (80.0-94.0); MEAN PLATELET VOLUME 11.3 fl (7.4-10.4); PLATELET 64 x1000/uL (130-400); RED BLOOD CELL COUNT 2.81 mill/uL (4.7-6.1); RED CELL DISTRIBUTION WIDTH 14.7 % (11.6-14.6)
[2020-04-11 06:10] LABS: CHLORIDE 117 mEq/L (98-107)
[2020-04-11 06:29] LABS: PHOSPHORUS 2.8 mg/dL (2.5-4.9)
[2020-04-11] MEDS: ATOVAQUONE 750MG/5ML ORAL SYRINGE NG SCH (08:38)
[2020-04-11] MEDS: PANTOPRAZOLE SODIUM 40 MG/VIAL IV SCH ×2 (08:38→21:46)
[2020-04-11] MEDS: BISMUTH SUBSALICYLATE 262 MG/15 ML-120ML BOTTLE GT SCH ×2 (08:39→17:49)
[2020-04-11] MEDS: HYDROCORTISONE ACETATE 25MG SUPP PR SCH ×3 (08:39→17:51)
[2020-04-11] MEDS: CALCITRIOL 1 MCG/ML ORAL SYR NG SCH (08:39)
[2020-04-11] MEDS: AZTREONAM 500 MG in DEXTROSE 5% WATER 50 ML IV SCH ×2 (08:39→16:08)
[2020-04-11] MEDS: MINOCYCLINE HCL 100 MG CAPSULE PO SCH ×2 (08:39→17:51)
[2020-04-11] MEDS: MIDODRINE HCL 5MG TABLET PO SCH ×3 (08:41→17:52)
[2020-04-11 14:11] LABS: PLATELET ESTIMATE DECREASED
[2020-04-11] MEDS: MICAFUNGIN 100 MG in SODIUM CHLORIDE 0.9% 100 ML IV SCH (18:41)
[2020-04-11] MEDS: IPRATROPIUM BROMIDE (0.02%) 0.5MG/2.5ML NEB HHN PRN (21:35)
[2020-04-11] MEDS: MESALAMINE 1000MG SUPPOSITORY PR SCH (21:46)
[2020-04-12] VITALS (12 sets, daily range): BP systolic 120–133; BP diastolic 72–99
[2020-04-12] MEDS: METOCLOPRAMIDE HCL 10MG/2ML VIAL IV SCH ×5 (00:20→23:26)
[2020-04-12] MEDS: AZTREONAM 500 MG in DEXTROSE 5% WATER 50 ML IV SCH ×4 (00:20→23:26)
[2020-04-12] MEDS: METOPROLOL TARTRATE 50MG TABLET PO SCH ×3 (06:23→21:07)
[2020-04-12 07:45] LABS: HEMATOCRIT. 24.7 % (42.0-52.0); HEMOGLOBIN. 7.9 g/dL (14.0-18.0); MEAN CORPUSCULAR HEMOGLOBIN 30.7 pg (28.0-32.0); MEAN CORPUSCULAR VOLUME 95.4 fL (80.0-94.0); PLATELET 65 x1000/uL (130-400); RED BLOOD CELL COUNT 2.59 mill/uL (4.7-6.1); RED CELL DISTRIBUTION WIDTH 15.4 % (11.6-14.6)
[2020-04-12] MEDS: IPRATROPIUM BROMIDE (0.02%) 0.5MG/2.5ML NEB HHN PRN ×2 (08:20→14:01)
[2020-04-12] MEDS: PANTOPRAZOLE SODIUM 40 MG/VIAL IV SCH ×2 (09:11→20:45)
[2020-04-12] MEDS: MIDODRINE HCL 5MG TABLET PO SCH ×3 (09:11→17:17)
[2020-04-12] MEDS: CALCITRIOL 1 MCG/ML ORAL SYR NG SCH (09:11)
[2020-04-12] MEDS: HYDROCORTISONE ACETATE 25MG SUPP PR SCH ×3 (09:11→17:19)
[2020-04-12] MEDS: MINOCYCLINE HCL 100 MG CAPSULE PO SCH ×2 (09:11→17:17)
[2020-04-12] MEDS: ATOVAQUONE 750MG/5ML ORAL SYRINGE NG SCH (09:12)
[2020-04-12] MEDS: BISMUTH SUBSALICYLATE 262 MG/15 ML-120ML BOTTLE GT SCH ×2 (13:05→17:17)
[2020-04-12 13:16] LABS: PLATELET ESTIMATE DECREASED
[2020-04-12] MEDS: MICAFUNGIN 100 MG in SODIUM CHLORIDE 0.9% 100 ML IV SCH (17:18)
[2020-04-12] MEDS: MESALAMINE 1000MG SUPPOSITORY PR SCH (20:45)
[2020-04-13] VITALS (13 sets, daily range): BP systolic 101–140; BP diastolic 64–98
[2020-04-13] MEDS: ACETAMINOPHEN 650MG/20.3ML UDC PO PRN ×2 (05:28→13:37)
[2020-04-13] MEDS: METOCLOPRAMIDE HCL 10MG/2ML VIAL IV SCH ×4 (05:28→23:15)
[2020-04-13] MEDS: METOPROLOL TARTRATE 50MG TABLET PO SCH ×3 (05:31→21:13)
[2020-04-13 06:49] LABS: HEMATOCRIT. 22.7 % (42.0-52.0); HEMOGLOBIN. 7.5 g/dL (14.0-18.0); MEAN CORPUSCULAR HEMOGLOBIN 30.9 pg (28.0-32.0); MEAN CORPUSCULAR VOLUME 93.6 fL (80.0-94.0); MEAN PLATELET VOLUME 10.4 fl (7.4-10.4); PLATELET 63 x1000/uL (130-400); RED BLOOD CELL COUNT 2.43 mill/uL (4.7-6.1)
[2020-04-13 07:03] LABS: PHOSPHORUS 3.6 mg/dL (2.5-4.9)
[2020-04-13] MEDS: MIDODRINE HCL 5MG TABLET PO SCH ×3 (08:08→17:07)
[2020-04-13] MEDS: CALCITRIOL 1 MCG/ML ORAL SYR NG SCH (08:09)
[2020-04-13] MEDS: BISMUTH SUBSALICYLATE 262 MG/15 ML-120ML BOTTLE GT SCH ×2 (08:09→17:06)
[2020-04-13] MEDS: PANTOPRAZOLE SODIUM 40 MG/VIAL IV SCH ×2 (08:09→20:49)
[2020-04-13] MEDS: MINOCYCLINE HCL 100 MG CAPSULE PO SCH ×2 (08:09→17:07)
[2020-04-13] MEDS: AZTREONAM 500 MG in DEXTROSE 5% WATER 50 ML IV SCH ×3 (08:09→23:15)
[2020-04-13] MEDS: HYDROCORTISONE ACETATE 25MG SUPP PR SCH ×3 (08:09→17:06)
[2020-04-13] MEDS: ATOVAQUONE 750MG/5ML ORAL SYRINGE NG SCH (08:10)
[2020-04-13] MEDS ORDERED: MAGNESIUM 2 G PREMIX 50 ML IV SCH (11:00)
[2020-04-13] MEDS ORDERED: POTASSIUM CHLORIDE INJ 40 MEQ in DEXT 5% WATER 250 ML IV SCH (11:00)
[2020-04-13 13:45] LABS: PLATELET ESTIMATE DECREASED
[2020-04-13] MEDS: MICAFUNGIN 100 MG in SODIUM CHLORIDE 0.9% 100 ML IV SCH (18:22)
[2020-04-13] MEDS: MESALAMINE 1000MG SUPPOSITORY PR SCH (20:50)
[2020-04-14] VITALS (11 sets, daily range): BP systolic 87–129; BP diastolic 43–85
[2020-04-14] MEDS: METOCLOPRAMIDE HCL 10MG/2ML VIAL IV SCH ×3 (05:03→17:11)
[2020-04-14] MEDS: METOPROLOL TARTRATE 50MG TABLET PO SCH ×3 (05:03→21:10)
[2020-04-14 07:05] LABS: HEMATOCRIT. 23.5 % (42.0-52.0); HEMOGLOBIN. 7.9 g/dL (14.0-18.0); MEAN CORPUSCULAR HEMOGLOBIN 31.1 pg (28.0-32.0); MEAN CORPUSCULAR VOLUME 92.5 fL (80.0-94.0); MEAN PLATELET VOLUME 11.2 fl (7.4-10.4); PLATELET 77 x1000/uL (130-400); RED BLOOD CELL COUNT 2.54 mill/uL (4.7-6.1); RED CELL DISTRIBUTION WIDTH 14.8 % (11.6-14.6)
[2020-04-14 07:20] LABS: PHOSPHORUS 4.4 mg/dL (2.5-4.9)
[2020-04-14] MEDS: MIDODRINE HCL 5MG TABLET PO SCH ×3 (08:45→17:11)
[2020-04-14] MEDS: MINOCYCLINE HCL 100 MG CAPSULE PO SCH ×2 (08:45→17:11)
[2020-04-14] MEDS: PANTOPRAZOLE SODIUM 40 MG/VIAL IV SCH ×2 (08:45→21:09)
[2020-04-14] MEDS: HYDROCORTISONE ACETATE 25MG SUPP PR SCH ×3 (08:45→17:12)
[2020-04-14] MEDS: AZTREONAM 500 MG in DEXTROSE 5% WATER 50 ML IV SCH ×2 (08:46→16:15)
[2020-04-14] MEDS: BISMUTH SUBSALICYLATE 262 MG/15 ML-120ML BOTTLE GT SCH ×2 (08:46→17:11)
[2020-04-14] MEDS: ATOVAQUONE 750MG/5ML ORAL SYRINGE NG SCH (08:46)
[2020-04-14] MEDS: CALCITRIOL 1 MCG/ML ORAL SYR NG SCH (08:46)
[2020-04-14] MEDS ORDERED: LIDOCAINE HCL 1% 20ML VIAL (Pyxis) INJ ONE (10:00)
[2020-04-14] MEDS ORDERED: POTASSIUM CHLORIDE 20MEQ/PACKET PEG NR (10:45)
[2020-04-14 12:01] LABS: PLATELET ESTIMATE DECREASED
[2020-04-14] MEDS ORDERED: [UNRECOGNIZED DRUG - REMARK] XX SCH (14:45)
[2020-04-14] MEDS: MICAFUNGIN 100 MG in SODIUM CHLORIDE 0.9% 100 ML IV SCH (17:11)
[2020-04-14] MEDS: MESALAMINE 1000MG SUPPOSITORY PR SCH (21:09)
[2020-04-14] MEDS: IPRATROPIUM BROMIDE (0.02%) 0.5MG/2.5ML NEB HHN PRN (21:13)
[2020-04-15] VITALS (12 sets, daily range): BP systolic 98–141; BP diastolic 67–103
[2020-04-15] MEDS: METOCLOPRAMIDE HCL 10MG/2ML VIAL IV SCH ×3 (00:59→16:40)
[2020-04-15] MEDS: METOPROLOL TARTRATE 50MG TABLET PO SCH ×3 (05:45→21:10)
[2020-04-15 07:07] LABS: PHOSPHORUS 4.8 mg/dL (2.5-4.9)
[2020-04-15] MEDS: MINOCYCLINE HCL 100 MG CAPSULE PO SCH ×2 (10:18→16:43)
[2020-04-15] MEDS: PANTOPRAZOLE SODIUM 40 MG/VIAL IV SCH ×2 (10:18→21:09)
[2020-04-15] MEDS: BISMUTH SUBSALICYLATE 262 MG/15 ML-120ML BOTTLE GT SCH ×2 (10:18→16:43)
[2020-04-15] MEDS: CALCITRIOL 1 MCG/ML ORAL SYR NG SCH (10:19)
[2020-04-15] MEDS: MIDODRINE HCL 5MG TABLET PO SCH ×3 (10:19→17:09)
[2020-04-15] MEDS: ATOVAQUONE 750MG/5ML ORAL SYRINGE NG SCH (10:19)
[2020-04-15] MEDS: HYDROCORTISONE ACETATE 25MG SUPP PR SCH ×3 (10:20→17:09)
[2020-04-15 13:25] LABS: HEMATOCRIT 27.3 % (42.0-52.0); HEMOGLOBIN 9.2 g/dL (14.0-18.0); PLATELET 78 x1000/uL (130-400); RED BLOOD CELL COUNT 2.97 mill/uL (4.7-6.1); RED CELL DISTRIBUTION WIDTH 15.1 % (11.6-14.6)
[2020-04-15] MEDS: MICAFUNGIN 100 MG in SODIUM CHLORIDE 0.9% 100 ML IV SCH (16:41)
[2020-04-15] MEDS: MESALAMINE 1000MG SUPPOSITORY PR SCH (21:10)
[2020-04-16] VITALS (17 sets, daily range): BP systolic 101–137; BP diastolic 68–100
[2020-04-16] MEDS: METOCLOPRAMIDE HCL 10MG/2ML VIAL IV SCH ×2 (05:41)
[2020-04-16] MEDS: METOPROLOL TARTRATE 50MG TABLET PO SCH ×3 (05:41→21:43)
[2020-04-16] MEDS: IPRATROPIUM BROMIDE (0.02%) 0.5MG/2.5ML NEB HHN PRN ×3 (08:09→20:03)
[2020-04-16] MEDS: ATOVAQUONE 750MG/5ML ORAL SYRINGE NG SCH (08:33)
[2020-04-16] MEDS: CALCITRIOL 1 MCG/ML ORAL SYR NG SCH (08:33)
[2020-04-16] MEDS: HYDROCORTISONE ACETATE 25MG SUPP PR SCH ×3 (08:34→18:56)
[2020-04-16] MEDS: MIDODRINE HCL 5MG TABLET PO SCH ×3 (08:34→18:56)
[2020-04-16] MEDS: BISMUTH SUBSALICYLATE 262 MG/15 ML-120ML BOTTLE GT SCH ×2 (08:34→17:00)
[2020-04-16] MEDS: PANTOPRAZOLE SODIUM 40 MG/VIAL IV SCH ×2 (08:34→20:31)
[2020-04-16 09:11] LABS: ABSOLUTE LYMPHOCYTES 0.5 x10E3/uL (0.7-3.1); ABSOLUTE MONOCYTES 0.4 x10E3/uL (0.1-0.9); ABSOLUTE NEUTROPHILS 6.8 x10E3/uL (1.4-7.0); BASOPHILS 0 % (Not Estab.); HEMATOCRIT 25.4 % (37.5-51.0); HEMATOLOGY COMMENT Note: (.); HEMOGLOBIN 8.7 g/dL (13.0-17.7); IMMATURE GRANULOCYTES 0 % (Not Estab.); LYMPHOCYTES 6 % (Not Estab.); MEAN CORPUSCULAR HEMOGLOBIN 30.5 pg (26.6-33.0); MEAN CORPUSCULAR HGB CONC. 34.3 g/dL (31.5-35.7); MEAN CORPUSCULAR VOLUME 89 fL (79-97); MONOCYTES 5 % (Not Estab.); NEUTROPHILS 89 % (Not Estab.); PLATELETS 62 x10E3/uL (150-450); RBC 2.85 x10E6/uL (4.14-5.80); RED CELL DISTRIBUTION WIDTH 13.8 % (11.6-15.4); WBC 7.8 x10E3/uL (3.4-10.8)
[2020-04-16 09:29] LABS: PHOSPHORUS 6.8 mg/dL (2.5-4.9)
[2020-04-16 10:07] LABS: % CD 3 POS. LYMPHOCYTES 70.4 % (57.5-86.2); % CD 8 POS. LYMPH 58.9 % (12.0-35.5); ABSOLUTE CD 3 352 /uL (622-2402); ABSOLUTE CD 4 HELPER 50 /uL (359-1519); ABSOLUTE CD 8 SUPPRESSOR 295 /uL (109-897); CD4/CD8 RATIO 0.17 (0.92-3.72)
[2020-04-16 11:50] LABS: HEMATOCRIT. 21.1 % (42.0-52.0); HEMOGLOBIN. 7.1 g/dL (14.0-18.0); MEAN CORPUSCULAR HEMOGLOBIN 30.9 pg (28.0-32.0); MEAN CORPUSCULAR VOLUME 91.3 fL (80.0-94.0); MEAN PLATELET VOLUME 11.2 fl (7.4-10.4); PLATELET 54 x1000/uL (130-400); RED BLOOD CELL COUNT 2.31 mill/uL (4.7-6.1); RED CELL DISTRIBUTION WIDTH 14.6 % (11.6-14.6)
[2020-04-16 12:13] LABS: PLATELET ESTIMATE MARKEDLY DECREASED
[2020-04-16] MEDS ORDERED: DIPHENOXYLATE/ATROPINE 2.5/0.025MG TABLET PEG NR (13:00)
[2020-04-16] MEDS ORDERED: ALTEPLASE 2MG/VIAL ITC NR (14:00)
[2020-04-16 15:41] LABS: BG BASE EXCESS -3.6 mmol/L (-2.0-2.0); BG CARBOXYHEMOGLOBIN 0.3 % (0.5-1.5); BG DEOXYHEMOGLOBIN 1.8 % (0.0-5.0); BG FRACTION INSPIRED OXYGEN 30; BG HCO3 ACT 18.3 mmol/L (22.0-26.0); BG METHEMOGLOBIN 0.5 % (0.0-1.5); BG OXYGEN SATURATION 98.2 % (92.0-98.5); BG OXYHEMOGLOBIN 97.4 % (94.0-97.0); BG PCO2 23.2 mmHg (35.0-45.0); BG PH 7.515 (7.350-7.450); BG PO2 118.4 mmHg (75.0-100.0); BG SAMPLE SITE RIGHT RADIAL; BG TOTAL HEMOGLOBIN 8.9 g/dL (12.0-18.0); BG TOTAL RESPIRATORY RATE 29 b/min; BG VENT MODE VENT - AC
[2020-04-16] MEDS: METOCLOPRAMIDE 10MG/10 ML UDC PO SCH (18:56)
[2020-04-16] MEDS: MICAFUNGIN 100 MG in SODIUM CHLORIDE 0.9% 100 ML IV SCH (18:57)
[2020-04-16] MEDS: MESALAMINE 1000MG SUPPOSITORY PR SCH (21:44)
[2020-04-17] VITALS (12 sets, daily range): BP systolic 83–156; BP diastolic 50–84
[2020-04-17] MEDS ORDERED: DEXT 5%/0.45% NACL 1000ML 1,000 ML IV SCH
[2020-04-17] MEDS: METOCLOPRAMIDE 10MG/10 ML UDC PO SCH ×4 (00:29→17:31)
[2020-04-17] MEDS: METOPROLOL TARTRATE 50MG TABLET PO SCH ×3 (05:45→21:00)
[2020-04-17] MEDS: BISMUTH SUBSALICYLATE 262 MG/15 ML-120ML BOTTLE GT SCH ×2 (08:32→16:47)
[2020-04-17] MEDS: ATOVAQUONE 750MG/5ML ORAL SYRINGE NG SCH (08:32)
[2020-04-17] MEDS: PANTOPRAZOLE SODIUM 40 MG/VIAL IV SCH ×2 (08:32→20:59)
[2020-04-17] MEDS: MIDODRINE HCL 5MG TABLET PO SCH ×3 (08:34→16:47)
[2020-04-17] MEDS: HYDROCORTISONE ACETATE 25MG SUPP PR SCH ×3 (08:34→16:47)
[2020-04-17] MEDS: CALCITRIOL 1 MCG/ML ORAL SYR NG SCH (08:34)
[2020-04-17 10:19] LABS: HEMATOCRIT. 30.1 % (42.0-52.0); HEMOGLOBIN. 10.2 g/dL (14.0-18.0); MEAN CORPUSCULAR VOLUME 88.1 fL (80.0-94.0); MEAN PLATELET VOLUME 10.3 fl (7.4-10.4); PLATELET 59 x1000/uL (130-400); RED BLOOD CELL COUNT 3.42 mill/uL (4.7-6.1); RED CELL DISTRIBUTION WIDTH 16.2 % (11.6-14.6)
[2020-04-17 10:30] LABS: PHOSPHORUS 5.3 mg/dL (2.5-4.9)
[2020-04-17 10:42] LABS: INR 1.1; PROTHROMBIN TIME 11.9 sec (9.6-11.0)
[2020-04-17 10:57] LABS: NUCLEATED RED BLOOD CELLS 1 /100 WBC
[2020-04-17 10:58] LABS: PLATELET ESTIMATE DECREASED
[2020-04-17] MEDS: MICAFUNGIN 100 MG in SODIUM CHLORIDE 0.9% 100 ML IV SCH (16:46)
[2020-04-17] MEDS: METRONIDAZOLE 250MG TABLET PO SCH (17:31)
[2020-04-17] MEDS: MESALAMINE 1000MG SUPPOSITORY PR SCH (21:00)
[2020-04-18] VITALS (12 sets, daily range): BP systolic 92–124; BP diastolic 57–91
[2020-04-18] MEDS: METOCLOPRAMIDE 10MG/10 ML UDC PO SCH ×4 (00:24→18:05)
[2020-04-18] MEDS: METRONIDAZOLE 250MG TABLET PO SCH ×4 (00:25→17:50)
[2020-04-18] MEDS: MORPHINE SULFATE 2 MG/ML CPJ (NOT FOR IM USE) IV PRN ×2 (03:28→17:57)
[2020-04-18] MEDS: IPRATROPIUM BROMIDE (0.02%) 0.5MG/2.5ML NEB HHN PRN ×3 (04:15→14:05)
[2020-04-18] MEDS: METOPROLOL TARTRATE 50MG TABLET PO SCH ×3 (05:23→21:10)
[2020-04-18 06:33] LABS: HEMATOCRIT. 26.5 % (42.0-52.0); HEMOGLOBIN. 9.1 g/dL (14.0-18.0); MEAN CORPUSCULAR HEMOGLOBIN 29.9 pg (28.0-32.0); MEAN CORPUSCULAR VOLUME 87.5 fL (80.0-94.0); MEAN PLATELET VOLUME 11.1 fl (7.4-10.4); RED BLOOD CELL COUNT 3.03 mill/uL (4.7-6.1); RED CELL DISTRIBUTION WIDTH 16.3 % (11.6-14.6)
[2020-04-18 06:52] LABS: PLATELET 50 x1000/uL (130-400)
[2020-04-18 07:16] LABS: CHLORIDE 113 mEq/L (98-107)
[2020-04-18 07:25] LABS: CREATINE KINASE 36 IU/L (39-308)
[2020-04-18] MEDS ORDERED: LIDOCAINE HCL 1% 20ML VIAL (Pyxis) INJ ONE ×2 (08:13→13:58)
[2020-04-18 09:15] LABS: PLATELET ESTIMATE DECREASED
[2020-04-18] MEDS: AZITHROMYCIN 500 MG TABLET PO SCH (10:04)
[2020-04-18] MEDS: PANTOPRAZOLE SODIUM 40 MG/VIAL IV SCH ×2 (10:05→20:37)
[2020-04-18] MEDS: HYDROCORTISONE ACETATE 25MG SUPP PR SCH ×3 (10:05→17:51)
[2020-04-18] MEDS: MIDODRINE HCL 5MG TABLET PO SCH ×3 (10:05→17:51)
[2020-04-18] MEDS: BISMUTH SUBSALICYLATE 262 MG/15 ML-120ML BOTTLE GT SCH ×2 (10:12→17:55)
[2020-04-18] MEDS: CALCITRIOL 1 MCG/ML ORAL SYR NG SCH (10:12)
[2020-04-18] MEDS: ATOVAQUONE 750MG/5ML ORAL SYRINGE NG SCH (10:13)
[2020-04-18] MEDS ORDERED: SODIUM BICARBONATE 4% (2.4MEQ) 5ML VIAL IV ONE (13:58)
[2020-04-18 15:19] LABS: BG BASE EXCESS -7.3 mmol/L (-2.0-2.0); BG CARBOXYHEMOGLOBIN 0.3 % (0.5-1.5); BG HCO3 ACT 15.7 mmol/L (22.0-26.0); BG METHEMOGLOBIN 0.4 % (0.0-1.5); BG OXYHEMOGLOBIN 98.3 % (94.0-97.0); BG PCO2 23.8 mmHg (35.0-45.0); BG PH 7.436 (7.350-7.450); BG PO2 296.7 mmHg (75.0-100.0); BG SAMPLE SITE RIGHT RADIAL; BG TOTAL HEMOGLOBIN 9.5 g/dL (12.0-18.0); BG VENT MODE VENT - AC
[2020-04-18] MEDS ORDERED: CEFTAZIDIME PENTAHYDRATE 1 G in DEXTROSE 5% WATER 50 ML IV SCH (16:30)
[2020-04-18] MEDS: MICAFUNGIN 100 MG in SODIUM CHLORIDE 0.9% 100 ML IV SCH (19:03)
[2020-04-18] MEDS: MESALAMINE 1000MG SUPPOSITORY PR SCH (20:38)
[2020-04-19] VITALS (12 sets, daily range): BP systolic 102–133; BP diastolic 73–93
[2020-04-19] MEDS: MORPHINE SULFATE 2 MG/ML CPJ (NOT FOR IM USE) IV PRN (01:30)
[2020-04-19] MEDS: IPRATROPIUM BROMIDE (0.02%) 0.5MG/2.5ML NEB HHN PRN ×2 (02:35→19:59)
[2020-04-19] MEDS: METRONIDAZOLE 250MG TABLET PO SCH ×5 (02:38→23:40)
[2020-04-19] MEDS: METOCLOPRAMIDE 10MG/10 ML UDC PO SCH ×5 (02:38→23:40)
[2020-04-19 05:41] LABS: HEMATOCRIT. 28.5 % (42.0-52.0); HEMOGLOBIN. 9.6 g/dL (14.0-18.0); MEAN CORPUSCULAR HEMOGLOBIN 29.5 pg (28.0-32.0); MEAN PLATELET VOLUME 10.9 fl (7.4-10.4); RED BLOOD CELL COUNT 3.24 mill/uL (4.7-6.1); RED CELL DISTRIBUTION WIDTH 16.6 % (11.6-14.6)
[2020-04-19 06:02] LABS: CHLORIDE 106 mEq/L (98-107)
[2020-04-19 06:10] LABS: PHOSPHORUS 3.4 mg/dL (2.5-4.9)
[2020-04-19] MEDS: METOPROLOL TARTRATE 50MG TABLET PO SCH ×3 (06:43→23:00)
[2020-04-19] MEDS ORDERED: POTASSIUM CHLORIDE INJ 40 MEQ in DEXT 5% WATER 250 ML IV NR (09:00)
[2020-04-19] MEDS ORDERED: MAGNESIUM 2 G PREMIX 50 ML IV NR (09:00)
[2020-04-19] MEDS: PANTOPRAZOLE SODIUM 40 MG/VIAL IV SCH ×2 (09:39→23:00)
[2020-04-19] MEDS: BISMUTH SUBSALICYLATE 262 MG/15 ML-120ML BOTTLE GT SCH ×2 (09:39→18:00)
[2020-04-19] MEDS: HYDROCORTISONE ACETATE 25MG SUPP PR SCH ×3 (09:40→18:01)
[2020-04-19] MEDS: CALCITRIOL 1 MCG/ML ORAL SYR NG SCH (09:40)
[2020-04-19] MEDS: ATOVAQUONE 750MG/5ML ORAL SYRINGE NG SCH (09:40)
[2020-04-19] MEDS: MIDODRINE HCL 5MG TABLET PO SCH ×3 (09:40→18:00)
[2020-04-19 13:08] LABS: PLATELET ESTIMATE MARKEDLY DECREASED
[2020-04-19 13:13] LABS: PLATELET 42 x1000/uL (130-400)
[2020-04-19] MEDS: CEFTAZIDIME PENTAHYDRATE 1 G in DEXTROSE 5% WATER 50 ML IV SCH (14:05)
[2020-04-19 16:29] LABS: BG BASE EXCESS -2.1 mmol/L (-2.0-2.0); BG CARBOXYHEMOGLOBIN 0.3 % (0.5-1.5); BG DEOXYHEMOGLOBIN 14.2 % (0.0-5.0); BG FRACTION INSPIRED OXYGEN 30; BG HCO3 ACT 21.8 mmol/L (22.0-26.0); BG METHEMOGLOBIN 0.5 % (0.0-1.5); BG OXYGEN SATURATION 85.7 % (92.0-98.5); BG PCO2 33.4 mmHg (35.0-45.0); BG PH 7.432 (7.350-7.450); BG PO2 51.6 mmHg (75.0-100.0); BG SAMPLE SITE RIGHT RADIAL; BG TOTAL HEMOGLOBIN 8.3 g/dL (12.0-18.0); BG VENT MODE VENT - AC
[2020-04-19] MEDS: MICAFUNGIN 100 MG in SODIUM CHLORIDE 0.9% 100 ML IV SCH (18:01)
[2020-04-19] MEDS ORDERED: LIDOCAINE 1%/EPI 1:100,000 10 ML VIAL IJ NR (20:00)
[2020-04-19] MEDS ORDERED: LIDOCAINE HCL 1% 20ML VIAL (Pyxis) INJ INFIL NR (20:30)
[2020-04-19] MEDS: MESALAMINE 1000MG SUPPOSITORY PR SCH (23:00)
[2020-04-20] VITALS (16 sets, daily range): BP systolic 113–130; BP diastolic 78–95
[2020-04-20] MEDS: IPRATROPIUM BROMIDE (0.02%) 0.5MG/2.5ML NEB HHN PRN ×2 (02:11→08:45)
[2020-04-20 05:47] LABS: HEMATOCRIT. 23.2 % (42.0-52.0); MEAN CORPUSCULAR HEMOGLOBIN 30.3 pg (28.0-32.0); MEAN CORPUSCULAR VOLUME 88.1 fL (80.0-94.0); MEAN PLATELET VOLUME 10.6 fl (7.4-10.4); RED BLOOD CELL COUNT 2.63 mill/uL (4.7-6.1); RED CELL DISTRIBUTION WIDTH 16.3 % (11.6-14.6)
[2020-04-20 05:56] LABS: CHLORIDE 109 mEq/L (98-107)
[2020-04-20 06:02] LABS: PHOSPHORUS 4.7 mg/dL (2.5-4.9)
[2020-04-20] MEDS: METOCLOPRAMIDE 10MG/10 ML UDC PO SCH ×3 (06:28→17:29)
[2020-04-20] MEDS: METOPROLOL TARTRATE 50MG TABLET PO SCH ×3 (06:28→21:46)
[2020-04-20] MEDS: METRONIDAZOLE 250MG TABLET PO SCH ×3 (06:29→17:30)
[2020-04-20] MEDS: HYDROCORTISONE ACETATE 25MG SUPP PR SCH ×3 (08:58→17:29)
[2020-04-20] MEDS: ATOVAQUONE 750MG/5ML ORAL SYRINGE NG SCH (09:23)
[2020-04-20] MEDS: BISMUTH SUBSALICYLATE 262 MG/15 ML-120ML BOTTLE GT SCH ×2 (09:23→17:29)
[2020-04-20] MEDS: MIDODRINE HCL 5MG TABLET PO SCH ×3 (09:23→17:30)
[2020-04-20] MEDS: PANTOPRAZOLE SODIUM 40 MG/VIAL IV SCH (09:23)
[2020-04-20] MEDS: CALCITRIOL 1 MCG/ML ORAL SYR NG SCH (09:23)
[2020-04-20] MEDS ORDERED: POTASSIUM CHLORIDE INJ 40 MEQ in DEXT 5% WATER 250 ML IV NR (11:00)
[2020-04-20 12:13] LABS: BG BASE EXCESS -1.8 mmol/L (-2.0-2.0); BG CARBOXYHEMOGLOBIN 0.3 % (0.5-1.5); BG DEOXYHEMOGLOBIN 1.1 % (0.0-5.0); BG FRACTION INSPIRED OXYGEN 50; BG HCO3 ACT 22.3 mmol/L (22.0-26.0); BG METHEMOGLOBIN 0.5 % (0.0-1.5); BG OXYGEN SATURATION 98.9 % (92.0-98.5); BG OXYHEMOGLOBIN 98.1 % (94.0-97.0); BG PCO2 35.2 mmHg (35.0-45.0); BG PO2 210.8 mmHg (75.0-100.0); BG SAMPLE SITE RIGHT RADIAL; BG TOTAL HEMOGLOBIN 8.7 g/dL (12.0-18.0); BG VENT MODE VENT - AC
[2020-04-20] MEDS: CEFTAZIDIME PENTAHYDRATE 1 G in DEXTROSE 5% WATER 50 ML IV SCH (13:49)
[2020-04-20] MEDS: MICAFUNGIN 100 MG in SODIUM CHLORIDE 0.9% 100 ML IV SCH (17:29)
[2020-04-20] MEDS: MORPHINE SULFATE 2 MG/ML CPJ (NOT FOR IM USE) IV PRN (19:46)
[2020-04-20] MEDS: MESALAMINE 1000MG SUPPOSITORY PR SCH (21:45)
[2020-04-20 22:41] LABS: PLATELET ESTIMATE MARKEDLY DECREASED
[2020-04-20 22:42] LABS: PLATELET 49 x1000/uL (130-400)
[2020-04-21] VITALS (18 sets, daily range): BP systolic 108–127; BP diastolic 70–100
[2020-04-21] MEDS: METRONIDAZOLE 250MG TABLET PO SCH ×5 (00:09→23:53)
[2020-04-21] MEDS: METOCLOPRAMIDE 10MG/10 ML UDC PO SCH ×5 (00:09→23:52)
[2020-04-21] MEDS: MORPHINE SULFATE 2 MG/ML CPJ (NOT FOR IM USE) IV PRN (04:18)
[2020-04-21] MEDS: METOPROLOL TARTRATE 50MG TABLET PO SCH ×3 (05:23→22:33)
[2020-04-21 06:04] LABS: CHLORIDE 110 mEq/L (98-107); HEMATOCRIT. 25.9 % (42.0-52.0); HEMOGLOBIN. 8.7 g/dL (14.0-18.0); MEAN CORPUSCULAR HEMOGLOBIN 30.1 pg (28.0-32.0); MEAN PLATELET VOLUME 11.5 fl (7.4-10.4); RED BLOOD CELL COUNT 2.91 mill/uL (4.7-6.1); RED CELL DISTRIBUTION WIDTH 16.5 % (11.6-14.6)
[2020-04-21 06:16] LABS: PHOSPHORUS 4.9 mg/dL (2.5-4.9)
[2020-04-21 06:52] LABS: PLATELET 46 x1000/uL (130-400)
[2020-04-21] MEDS: IPRATROPIUM BROMIDE (0.02%) 0.5MG/2.5ML NEB HHN PRN ×4 (07:58→21:32)
[2020-04-21] MEDS: HYDROCORTISONE ACETATE 25MG SUPP PR SCH ×3 (08:30→18:58)
[2020-04-21] MEDS: MIDODRINE HCL 5MG TABLET PO SCH ×3 (08:30→18:58)
[2020-04-21] MEDS: ATOVAQUONE 750MG/5ML ORAL SYRINGE NG SCH (08:31)
[2020-04-21] MEDS: BISMUTH SUBSALICYLATE 262 MG/15 ML-120ML BOTTLE GT SCH ×2 (08:32→17:00)
[2020-04-21 11:08] LABS: PLATELET ESTIMATE MARKEDLY DECREASED
[2020-04-21 11:10] LABS: BG BASE EXCESS -2.5 mmol/L (-2.0-2.0); BG CARBOXYHEMOGLOBIN 0.3 % (0.5-1.5); BG DEOXYHEMOGLOBIN 1.6 % (0.0-5.0); BG FRACTION INSPIRED OXYGEN 40; BG HCO3 ACT 21.9 mmol/L (22.0-26.0); BG METHEMOGLOBIN 0.2 % (0.0-1.5); BG OXYGEN SATURATION 98.4 % (92.0-98.5); BG OXYHEMOGLOBIN 97.9 % (94.0-97.0); BG PCO2 36.1 mmHg (35.0-45.0); BG SAMPLE SITE RIGHT RADIAL; BG TOTAL HEMOGLOBIN 9.9 g/dL (12.0-18.0); BG TOTAL RESPIRATORY RATE 23 b/min; BG VENT MODE VENT - AC
[2020-04-21] MEDS: CEFTAZIDIME PENTAHYDRATE 1 G in DEXTROSE 5% WATER 50 ML IV SCH (14:47)
[2020-04-21] MEDS: DEXT 5%/0.45% NACL 1000ML 1,000 ML IV SCH (18:59)
[2020-04-21] MEDS: MICAFUNGIN 100 MG in SODIUM CHLORIDE 0.9% 100 ML IV SCH (18:59)
[2020-04-21] MEDS: MESALAMINE 1000MG SUPPOSITORY PR SCH (21:00)
[2020-04-21 22:06] LABS: HEMATOCRIT 27.7 % (42.0-52.0); HEMOGLOBIN 9.4 g/dL (14.0-18.0); MEAN CORPUSCULAR HEMOGLOBIN 30.5 pg (28.0-32.0); RED BLOOD CELL COUNT 3.08 mill/uL (4.7-6.1); RED CELL DISTRIBUTION WIDTH 16.6 % (11.6-14.6)
[2020-04-21 22:11] LABS: PLATELET 41 x1000/uL (130-400)
[2020-04-22] VITALS (15 sets, daily range): BP systolic 110–128; BP diastolic 75–97
[2020-04-22] MEDS: MORPHINE SULFATE 2 MG/ML CPJ (NOT FOR IM USE) IV PRN ×2 (00:45→06:06)
[2020-04-22] MEDS: METRONIDAZOLE 250MG TABLET PO SCH ×3 (06:00→17:30)
[2020-04-22] MEDS: METOCLOPRAMIDE 10MG/10 ML UDC PO SCH ×3 (06:00→17:30)
[2020-04-22] MEDS: METOPROLOL TARTRATE 50MG TABLET PO SCH ×2 (06:06→13:16)
[2020-04-22 06:33] LABS: HEMATOCRIT. 26.4 % (42.0-52.0); MEAN CORPUSCULAR HEMOGLOBIN 29.7 pg (28.0-32.0); MEAN CORPUSCULAR VOLUME 86.8 fL (80.0-94.0); MEAN PLATELET VOLUME 10.2 fl (7.4-10.4); RED BLOOD CELL COUNT 3.04 mill/uL (4.7-6.1); RED CELL DISTRIBUTION WIDTH 16.8 % (11.6-14.6)
[2020-04-22 06:34] LABS: CHLORIDE 108 mEq/L (98-107)
[2020-04-22 06:39] LABS: PLATELET 50 x1000/uL (130-400)
[2020-04-22] MEDS: MIDODRINE HCL 5MG TABLET PO SCH ×3 (08:12→17:00)
[2020-04-22] MEDS: HYDROCORTISONE ACETATE 25MG SUPP PR SCH ×3 (08:13→17:00)
[2020-04-22] MEDS: ATOVAQUONE 750MG/5ML ORAL SYRINGE NG SCH (08:13)
[2020-04-22] MEDS ORDERED: POTASSIUM CHLORIDE INJ 40 MEQ in DEXT 5% WATER 250 ML IV ONE (08:30)
[2020-04-22] MEDS: BISMUTH SUBSALICYLATE 262 MG/15 ML-120ML BOTTLE GT SCH ×2 (08:54→17:00)
[2020-04-22] MEDS ORDERED: MAGNESIUM 2 G PREMIX 50 ML IV NR ×2 (11:00→17:00)
[2020-04-22 11:07] LABS: BG BASE EXCESS -0.6 mmol/L (-2.0-2.0); BG CARBOXYHEMOGLOBIN 0.3 % (0.5-1.5); BG DEOXYHEMOGLOBIN 1.1 % (0.0-5.0); BG FRACTION INSPIRED OXYGEN 40; BG HCO3 ACT 24.5 mmol/L (22.0-26.0); BG METHEMOGLOBIN 0.3 % (0.0-1.5); BG OXYGEN SATURATION 98.9 % (92.0-98.5); BG OXYHEMOGLOBIN 98.3 % (94.0-97.0); BG PCO2 41.9 mmHg (35.0-45.0); BG PH 7.384 (7.350-7.450); BG PO2 169.6 mmHg (75.0-100.0); BG SAMPLE SITE RIGHT RADIAL; BG TOTAL RESPIRATORY RATE 19 b/min; BG VENT MODE VENT - AC
[2020-04-22 14:46] LABS: PLATELET ESTIMATE MARKEDLY DECREASED
[2020-04-22] MEDS ORDERED: KCL 10MEQ/50ML PREMIX 50 ML IV NR ×2 (16:00→17:00)
[2020-04-22] MEDS: CEFTAZIDIME PENTAHYDRATE 1 G in DEXTROSE 5% WATER 50 ML IV SCH (17:29)
[2020-04-22] MEDS: DEXT 5%/0.45% NACL 1000ML 1,000 ML IV SCH (17:31)
[2020-04-22] MEDS: MICAFUNGIN 100 MG in SODIUM CHLORIDE 0.9% 100 ML IV SCH (17:40)
[2020-04-22] MEDS ORDERED: MIDAZOLAM HCL 2 MG/2 ML VIAL ONE (19:44)
[2020-04-22] MEDS ORDERED: ROCURONIUM BROMIDE 10MG/ML VIAL 5ML IV ONE (19:46)
[2020-04-22] MEDS ORDERED: BACITRACIN 15GM TUBE TOP ONE (19:49)
[2020-04-22] MEDS ORDERED: LIDOCAINE HCL 1% 20ML VIAL (Pyxis) INJ ONE (19:49)
[2020-04-22] MEDS ORDERED: BUPIVACAINE HCL/PF 0.5% (5MG/ML) 10ML ONE ×2 (19:49→19:51)
[2020-04-22] MEDS ORDERED: SODIUM CHLORIDE 0.9% IRRIG SOL 2,000 ML IR ONE (19:50)
[2020-04-22] MEDS ORDERED: SODIUM CHLORIDE 0.9% INJ 10ML FLUSH IVF ONE ×2 (19:50→19:52)
[2020-04-22] MEDS ORDERED: BACITRACIN 50,000 UNITS/VIAL ONE (19:50)
[2020-04-22] MEDS ORDERED: GENTAMICIN SULF 40MG/ML 2ML VIAL ONE (19:51)
[2020-04-22] MEDS ORDERED: EPHEDRINE SULFATE 50MG/ML VIAL ONE (20:08)
[2020-04-22] MEDS: MESALAMINE 1000MG SUPPOSITORY PR SCH (21:00)
[2020-04-23] VITALS (19 sets, daily range): BP systolic 120–138; BP diastolic 75–104
[2020-04-23] MEDS ORDERED: ALBUMIN HUMAN 12.5G/250ML (5%) IV ONE (00:32)
[2020-04-23] MEDS ORDERED: ALBUMIN HUMAN 25GM/500ML (5%) IV SCH (01:00)
[2020-04-23] MEDS: METOCLOPRAMIDE 10MG/10 ML UDC PO SCH ×4 (06:36→23:06)
[2020-04-23] MEDS: METRONIDAZOLE 250MG TABLET PO SCH ×4 (06:36→23:06)
[2020-04-23] MEDS: METOPROLOL TARTRATE 50MG TABLET PO SCH ×3 (06:38→22:28)
[2020-04-23 07:01] LABS: HEMOGLOBIN. 8.1 g/dL (14.0-18.0); MEAN CORPUSCULAR HEMOGLOBIN 29.7 pg (28.0-32.0); MEAN CORPUSCULAR VOLUME 87.9 fL (80.0-94.0); MEAN PLATELET VOLUME 9.1 fl (7.4-10.4); RED BLOOD CELL COUNT 2.73 mill/uL (4.7-6.1); RED CELL DISTRIBUTION WIDTH 16.3 % (11.6-14.6)
[2020-04-23 07:22] LABS: CHLORIDE 109 mEq/L (98-107)
[2020-04-23] MEDS: HYDROCORTISONE ACETATE 25MG SUPP PR SCH (08:04)
[2020-04-23] MEDS: BISMUTH SUBSALICYLATE 262 MG/15 ML-120ML BOTTLE GT SCH ×2 (08:05→17:35)
[2020-04-23] MEDS: MIDODRINE HCL 5MG TABLET PO SCH ×3 (08:05→17:36)
[2020-04-23] MEDS: ATOVAQUONE 750MG/5ML ORAL SYRINGE NG SCH (08:06)
[2020-04-23] MEDS ORDERED: POTASSIUM CHLORIDE 20MEQ/PACKET PEG SCH (11:00)
[2020-04-23 12:22] LABS: NUCLEATED RED BLOOD CELLS 1 /100 WBC
[2020-04-23 12:41] LABS: PLATELET ESTIMATE MARKEDLY DECREASED
[2020-04-23 12:42] LABS: PLATELET 41 x1000/uL (130-400)
[2020-04-23] MEDS: CEFTAZIDIME PENTAHYDRATE 1 G in DEXTROSE 5% WATER 50 ML IV SCH (14:12)
[2020-04-23 15:55] LABS: HEMATOCRIT 29.3 % (42.0-52.0)
[2020-04-23] MEDS: MICAFUNGIN 100 MG in SODIUM CHLORIDE 0.9% 100 ML IV SCH (17:36)
[2020-04-23] MEDS: DEXT 5%/0.45% NACL 1000ML 1,000 ML IV SCH (17:37)
[2020-04-23 21:33] LABS: MEAN CORPUSCULAR HEMOGLOBIN 29.9 pg (28.0-32.0); MEAN CORPUSCULAR VOLUME 86.3 fL (80.0-94.0); RED BLOOD CELL COUNT 3.01 mill/uL (4.7-6.1); RED CELL DISTRIBUTION WIDTH 16.2 % (11.6-14.6)
[2020-04-23 21:40] LABS: INR 1.2; PLATELET 36 x1000/uL (130-400); PROTHROMBIN TIME 12.6 sec (9.6-11.0)
[2020-04-23] MEDS: MESALAMINE 1000MG SUPPOSITORY PR SCH (22:31)
[2020-04-23] MEDS: MORPHINE SULFATE 4 MG/ML CPJ (NOT FOR IM USE) IV PRN (23:36)
[2020-04-24] VITALS (27 sets, daily range): BP systolic 112–135; BP diastolic 61–90
[2020-04-24] MEDS ORDERED: ALTEPLASE 2MG/VIAL ITC NR (02:06)
[2020-04-24] MEDS: METOCLOPRAMIDE 10MG/10 ML UDC PO SCH ×4 (05:34→23:46)
[2020-04-24] MEDS: MORPHINE SULFATE 4 MG/ML CPJ (NOT FOR IM USE) IV PRN ×2 (05:34→18:58)
[2020-04-24] MEDS: METOPROLOL TARTRATE 50MG TABLET PO SCH ×3 (05:39→21:23)
[2020-04-24] MEDS: METRONIDAZOLE 250MG TABLET PO SCH ×4 (05:39→23:46)
[2020-04-24 06:14] LABS: HEMATOCRIT. 23.4 % (42.0-52.0); MEAN CORPUSCULAR HEMOGLOBIN 29.8 pg (28.0-32.0); MEAN CORPUSCULAR VOLUME 86.6 fL (80.0-94.0); RED CELL DISTRIBUTION WIDTH 16.2 % (11.6-14.6)
[2020-04-24 06:20] LABS: CHLORIDE 111 mEq/L (98-107)
[2020-04-24 06:31] LABS: PHOSPHORUS 4.4 mg/dL (2.5-4.9)
[2020-04-24 07:46] LABS: PLATELET 48 x1000/uL (130-400)
[2020-04-24 07:47] LABS: BG CARBOXYHEMOGLOBIN 0.3 % (0.5-1.5); BG DEOXYHEMOGLOBIN 1.9 % (0.0-5.0); BG FRACTION INSPIRED OXYGEN 40; BG HCO3 ACT 20.9 mmol/L (22.0-26.0); BG METHEMOGLOBIN 0.2 % (0.0-1.5); BG OXYGEN SATURATION 98.1 % (92.0-98.5); BG OXYHEMOGLOBIN 97.6 % (94.0-97.0); BG PCO2 32.6 mmHg (35.0-45.0); BG PH 7.425 (7.350-7.450); BG SAMPLE SITE RIGHT RADIAL; BG TOTAL HEMOGLOBIN 7.9 g/dL (12.0-18.0); BG VENT MODE VENT - AC
[2020-04-24] MEDS: IPRATROPIUM BROMIDE (0.02%) 0.5MG/2.5ML NEB HHN PRN ×2 (07:53→13:55)
[2020-04-24] MEDS: ATOVAQUONE 750MG/5ML ORAL SYRINGE NG SCH (08:00)
[2020-04-24] MEDS: POTASSIUM CHLORIDE 20MEQ TABLET SR PO SCH (08:00)
[2020-04-24] MEDS: MIDODRINE HCL 5MG TABLET PO SCH ×2 (08:00→12:26)
[2020-04-24] MEDS: BISMUTH SUBSALICYLATE 262 MG/15 ML-120ML BOTTLE GT SCH ×2 (08:00→18:55)
[2020-04-24] MEDS ORDERED: MAGNESIUM 2 G PREMIX 50 ML IV ONE ×2 (09:00→13:00)
[2020-04-24] MEDS ORDERED: MAGNESIUM 2 G PREMIX 50 ML IV SCH (09:00)
[2020-04-24 15:31] LABS: NUCLEATED RED BLOOD CELLS 2 /100 WBC; PLATELET ESTIMATE MARKEDLY DECREASED
[2020-04-24] MEDS: MICAFUNGIN 100 MG in SODIUM CHLORIDE 0.9% 100 ML IV SCH (17:17)
[2020-04-24] MEDS: DOVATO PO SCH (17:17)
[2020-04-24] MEDS: DEXT 5%/0.45% NACL 1000ML 1,000 ML IV SCH (17:31)
[2020-04-24 17:49] LABS: CHLORIDE 112 mEq/L (98-107)
[2020-04-24 17:52] LABS: PHOSPHORUS 4.2 mg/dL (2.5-4.9)
[2020-04-24] MEDS: MESALAMINE 1000MG SUPPOSITORY PR SCH (21:22)
[2020-04-25] VITALS (19 sets, daily range): BP systolic 115–148; BP diastolic 56–124
[2020-04-25] MEDS: METOPROLOL TARTRATE 50MG TABLET PO SCH ×3 (05:10→22:27)
[2020-04-25] MEDS: METOCLOPRAMIDE 10MG/10 ML UDC PO SCH ×4 (05:10→23:13)
[2020-04-25] MEDS: METRONIDAZOLE 250MG TABLET PO SCH ×4 (05:10→23:10)
[2020-04-25 06:58] LABS: INR 1.3; PROTHROMBIN TIME 13.9 sec (9.6-11.0)
[2020-04-25 07:24] LABS: CHLORIDE 115 mEq/L (98-107)
[2020-04-25] MEDS: POTASSIUM CHLORIDE 20MEQ TABLET SR PO SCH (09:25)
[2020-04-25] MEDS: BISMUTH SUBSALICYLATE 262 MG/15 ML-120ML BOTTLE GT SCH ×2 (09:25→17:57)
[2020-04-25] MEDS: DOVATO PO SCH (09:25)
[2020-04-25] MEDS: ZINC SULFATE 220 MG ( 50 ) CAPSULE PO SCH (09:26)
[2020-04-25] MEDS: AZITHROMYCIN 500 MG TABLET PO SCH (09:26)
[2020-04-25] MEDS: ASCORBIC ACID 500 MG TABLET PO SCH (09:27)
[2020-04-25] MEDS: ATOVAQUONE 750MG/5ML ORAL SYRINGE NG SCH (09:27)
[2020-04-25 09:28] LABS: MEAN CORPUSCULAR HEMOGLOBIN 29.3 pg (28.0-32.0); MEAN CORPUSCULAR VOLUME 86.1 fL (80.0-94.0); MEAN PLATELET VOLUME 8.9 fl (7.4-10.4); PLATELET 52 x1000/uL (130-400); RED BLOOD CELL COUNT 2.16 mill/uL (4.7-6.1)
[2020-04-25 09:51] LABS: HEMATOCRIT. 18.6 % (42.0-52.0); HEMOGLOBIN. 6.3 g/dL (14.0-18.0)
[2020-04-25 10:32] LABS: PLATELET ESTIMATE DECREASED
[2020-04-25 10:49] LABS: CHLORIDE 115 mEq/L (98-107)
[2020-04-25] MEDS ORDERED: POTASSIUM CHLORIDE INJ 40 MEQ in DEXT 5% WATER 250 ML IV SCH (12:00)
[2020-04-25] MEDS: MICAFUNGIN 100 MG in SODIUM CHLORIDE 0.9% 100 ML IV SCH (17:55)
[2020-04-25] MEDS: MESALAMINE 1000MG SUPPOSITORY PR SCH (20:16)
[2020-04-25] MEDS: MORPHINE SULFATE 4 MG/ML CPJ (NOT FOR IM USE) IV PRN (20:17)
[2020-04-25 20:25] LABS: HEMATOCRIT 26.9 % (42.0-52.0); HEMOGLOBIN 9.3 g/dL (14.0-18.0)
[2020-04-26] VITALS (12 sets, daily range): BP systolic 118–132; BP diastolic 75–100
[2020-04-26] MEDS: MORPHINE SULFATE 4 MG/ML CPJ (NOT FOR IM USE) IV PRN ×4 (03:00→15:49)
[2020-04-26] MEDS: METRONIDAZOLE 250MG TABLET PO SCH ×3 (05:40→17:29)
[2020-04-26] MEDS: METOPROLOL TARTRATE 50MG TABLET PO SCH ×3 (05:41→21:13)
[2020-04-26] MEDS: METOCLOPRAMIDE 10MG/10 ML UDC PO SCH ×3 (05:42→17:30)
[2020-04-26 07:06] LABS: HEMATOCRIT. 26.2 % (42.0-52.0); HEMOGLOBIN. 8.9 g/dL (14.0-18.0); MEAN CORPUSCULAR HEMOGLOBIN 29.6 pg (28.0-32.0); MEAN CORPUSCULAR VOLUME 87.2 fL (80.0-94.0); MEAN PLATELET VOLUME 9.7 fl (7.4-10.4); RED BLOOD CELL COUNT 3.01 mill/uL (4.7-6.1); RED CELL DISTRIBUTION WIDTH 15.5 % (11.6-14.6)
[2020-04-26 07:26] LABS: CHLORIDE 116 mEq/L (98-107)
[2020-04-26 07:31] LABS: PHOSPHORUS 4.5 mg/dL (2.5-4.9)
[2020-04-26 08:31] LABS: BG BASE EXCESS -7.7 mmol/L (-2.0-2.0); BG CARBOXYHEMOGLOBIN 0.3 % (0.5-1.5); BG DEOXYHEMOGLOBIN 1.5 % (0.0-5.0); BG FRACTION INSPIRED OXYGEN 40; BG HCO3 ACT 16.5 mmol/L (22.0-26.0); BG METHEMOGLOBIN 0.5 % (0.0-1.5); BG OXYGEN SATURATION 98.5 % (92.0-98.5); BG OXYHEMOGLOBIN 97.7 % (94.0-97.0); BG PCO2 29.1 mmHg (35.0-45.0); BG PH 7.371 (7.350-7.450); BG SAMPLE SITE RIGHT RADIAL; BG TOTAL HEMOGLOBIN 9.5 g/dL (12.0-18.0); BG TOTAL RESPIRATORY RATE 18 b/min; BG VENT MODE VENT - AC
[2020-04-26 08:34] LABS: PLATELET 34 x1000/uL (130-400)
[2020-04-26] MEDS: BISMUTH SUBSALICYLATE 262 MG/15 ML-120ML BOTTLE GT SCH ×2 (08:45→17:29)
[2020-04-26] MEDS: DOVATO PO SCH (08:45)
[2020-04-26] MEDS: ATOVAQUONE 750MG/5ML ORAL SYRINGE NG SCH (08:47)
[2020-04-26] MEDS: ASCORBIC ACID 500 MG TABLET PO SCH (08:48)
[2020-04-26] MEDS: ZINC SULFATE 220 MG ( 50 ) CAPSULE PO SCH (08:48)
[2020-04-26] MEDS: POTASSIUM CHLORIDE 20MEQ TABLET SR PO SCH (08:48)
[2020-04-26 09:45] LABS: PLATELET ESTIMATE MARKEDLY DECREASED
[2020-04-26] MEDS: ONDANSETRON HCL 4MG/2ML INJ IV PRN ×2 (10:25→17:28)
[2020-04-26] MEDS: MICAFUNGIN 100 MG in SODIUM CHLORIDE 0.9% 100 ML IV SCH (17:28)
[2020-04-26] MEDS: MESALAMINE 1000MG SUPPOSITORY PR SCH (21:12)
[2020-04-26] MEDS: IPRATROPIUM BROMIDE (0.02%) 0.5MG/2.5ML NEB HHN PRN (22:40)
[2020-04-27] VITALS (17 sets, daily range): BP systolic 116–137; BP diastolic 78–98
[2020-04-27] MEDS: METOCLOPRAMIDE 10MG/10 ML UDC PO SCH ×4 (00:20→17:02)
[2020-04-27] MEDS: METRONIDAZOLE 250MG TABLET PO SCH ×4 (00:20→17:02)
[2020-04-27] MEDS: METOPROLOL TARTRATE 50MG TABLET PO SCH ×3 (05:21→21:22)
[2020-04-27 05:31] LABS: CHLORIDE 116 mEq/L (98-107)
[2020-04-27] MEDS: ASCORBIC ACID 500 MG TABLET PO SCH (08:27)
[2020-04-27] MEDS: BISMUTH SUBSALICYLATE 262 MG/15 ML-120ML BOTTLE GT SCH ×2 (08:42→17:02)
[2020-04-27] MEDS: POTASSIUM CHLORIDE 20MEQ TABLET SR PO SCH (08:43)
[2020-04-27] MEDS: ZINC SULFATE 220 MG ( 50 ) CAPSULE PO SCH (08:43)
[2020-04-27] MEDS: DOVATO PO SCH (08:43)
[2020-04-27 11:44] LABS: HEMATOCRIT. 29.2 % (42.0-52.0); HEMOGLOBIN. 9.9 g/dL (14.0-18.0); MEAN CORPUSCULAR VOLUME 87.9 fL (80.0-94.0); MEAN PLATELET VOLUME 11.3 fl (7.4-10.4); RED BLOOD CELL COUNT 3.32 mill/uL (4.7-6.1); RED CELL DISTRIBUTION WIDTH 15.3 % (11.6-14.6)
[2020-04-27 11:49] LABS: PLATELET 24 x1000/uL (130-400)
[2020-04-27] MEDS: MORPHINE SULFATE 4 MG/ML CPJ (NOT FOR IM USE) IV PRN (12:38)
[2020-04-27] MEDS: ONDANSETRON HCL 4MG/2ML INJ IV PRN (12:38)
[2020-04-27 16:12] LABS: CHLORIDE 117 mEq/L (98-107)
[2020-04-27] MEDS ORDERED: POTASSIUM CHLORIDE 20MEQ/PACKET PO NR (16:45)
[2020-04-27] MEDS: MICAFUNGIN 100 MG in SODIUM CHLORIDE 0.9% 100 ML IV SCH (16:59)
[2020-04-27] MEDS: ATOVAQUONE 750MG/5ML ORAL SYRINGE PO SCH (17:02)
[2020-04-27] MEDS ORDERED: CALCIUM GLUCONATE 1,000 MG in DEXT 5% WATER 90 ML IV NR (17:30)
[2020-04-27] MEDS: MESALAMINE 1000MG SUPPOSITORY PR SCH ×2 (21:20→21:31)
[2020-04-28] VITALS (12 sets, daily range): BP systolic 104–129; BP diastolic 82–96
[2020-04-28] MEDS: METOCLOPRAMIDE 10MG/10 ML UDC PO SCH ×2 (00:25→05:26)
[2020-04-28] MEDS: ONDANSETRON HCL 4MG/2ML INJ IV PRN ×2 (00:25→05:32)
[2020-04-28] MEDS: METRONIDAZOLE 250MG TABLET PO SCH ×5 (00:26→23:06)
[2020-04-28] MEDS: METOPROLOL TARTRATE 50MG TABLET PO SCH ×3 (05:27→23:09)
[2020-04-28 07:22] LABS: CHLORIDE 117 mEq/L (98-107)
[2020-04-28 07:45] LABS: PLATELET ESTIMATE MARKEDLY DECREASED
[2020-04-28] MEDS: ATOVAQUONE 750MG/5ML ORAL SYRINGE PO SCH (09:26)
[2020-04-28] MEDS: ASCORBIC ACID 500 MG TABLET PO SCH (09:26)
[2020-04-28] MEDS: POTASSIUM CHLORIDE 20MEQ TABLET SR PO SCH (09:26)
[2020-04-28] MEDS: ZINC SULFATE 220 MG ( 50 ) CAPSULE PO SCH (09:26)
[2020-04-28] MEDS: DOVATO PO SCH (09:26)
[2020-04-28 09:52] LABS: HEMATOCRIT. 32.1 % (42.0-52.0); HEMOGLOBIN. 10.9 g/dL (14.0-18.0); MEAN CORPUSCULAR HEMOGLOBIN 29.8 pg (28.0-32.0); MEAN CORPUSCULAR VOLUME 87.8 fL (80.0-94.0); MEAN PLATELET VOLUME 9.3 fl (7.4-10.4); RED BLOOD CELL COUNT 3.65 mill/uL (4.7-6.1); RED CELL DISTRIBUTION WIDTH 15.4 % (11.6-14.6)
[2020-04-28 10:03] LABS: PLATELET 33 x1000/uL (130-400)
[2020-04-28] MEDS: METOCLOPRAMIDE HCL 10MG/2ML VIAL IV SCH ×3 (12:39→23:06)
[2020-04-28] MEDS: BISMUTH SUBSALICYLATE 262 MG/15 ML-120ML BOTTLE GT SCH ×2 (12:41→17:41)
[2020-04-28] MEDS: MORPHINE SULFATE 2 MG/ML CPJ (NOT FOR IM USE) IV PRN ×2 (12:41→17:40)
[2020-04-28 12:57] LABS: NUCLEATED RED BLOOD CELLS 1 /100 WBC
[2020-04-28 12:58] LABS: PLATELET ESTIMATE MARKEDLY DECREASED
[2020-04-29] VITALS (17 sets, daily range): BP systolic 97–127; BP diastolic 75–93
[2020-04-29] MEDS: ONDANSETRON HCL 4MG/2ML INJ IV PRN (04:18)
[2020-04-29] MEDS: METRONIDAZOLE 250MG TABLET PO SCH ×2 (05:13→13:24)
[2020-04-29] MEDS: METOCLOPRAMIDE HCL 10MG/2ML VIAL IV SCH ×2 (05:13→13:24)
[2020-04-29] MEDS: METOPROLOL TARTRATE 50MG TABLET PO SCH ×2 (05:13→13:24)
[2020-04-29 07:01] LABS: HEMATOCRIT 30.6 % (42.0-52.0); HEMOGLOBIN 10.5 g/dL (14.0-18.0); MEAN CORPUSCULAR HEMOGLOBIN 30.1 pg (28.0-32.0); MEAN CORPUSCULAR VOLUME 87.6 fL (80.0-94.0); RED BLOOD CELL COUNT 3.49 mill/uL (4.7-6.1); RED CELL DISTRIBUTION WIDTH 15.3 % (11.6-14.6)
[2020-04-29 07:17] LABS: CHLORIDE 118 mEq/L (98-107)
[2020-04-29 07:42] LABS: PLATELET 21 x1000/uL (130-400)
[2020-04-29] MEDS: ATOVAQUONE 750MG/5ML ORAL SYRINGE PO SCH (09:00)
[2020-04-29] MEDS: ASCORBIC ACID 500 MG TABLET PO SCH (09:52)
[2020-04-29] MEDS: ZINC SULFATE 220 MG ( 50 ) CAPSULE PO SCH (09:52)
[2020-04-29] MEDS: POTASSIUM CHLORIDE 20MEQ TABLET SR PO SCH (09:52)
[2020-04-29] MEDS: DOVATO PO SCH (09:52)
[2020-04-29] MEDS: BISMUTH SUBSALICYLATE 262 MG/15 ML-120ML BOTTLE GT SCH (09:53)
[2020-04-29] MEDS ORDERED: POTASSIUM CHLORIDE INJ 40 MEQ in DEXT 5% WATER 250 ML IV SCH (11:30)
[2020-04-29 11:47] LABS: BG BASE EXCESS -3.2 mmol/L (-2.0-2.0); BG CARBOXYHEMOGLOBIN 0.3 % (0.5-1.5); BG DEOXYHEMOGLOBIN 1.4 % (0.0-5.0); BG METHEMOGLOBIN 0.5 % (0.0-1.5); BG OXYGEN SATURATION 98.6 % (92.0-98.5); BG OXYHEMOGLOBIN 97.8 % (94.0-97.0); BG PCO2 34.4 mmHg (35.0-45.0); BG PH 7.403 (7.350-7.450); BG PO2 170.2 mmHg (75.0-100.0); BG SAMPLE SITE RIGHT RADIAL; BG TOTAL HEMOGLOBIN 9.9 g/dL (12.0-18.0); BG VENT MODE VENT - AC
== END 2020-04-29 19:15 | DRG 4 ==
LOC: ER 11:12 → EDBEDREQ 18:54 → ENRESERV 20:03 → 6WST 22:33 → CVICU 02-28 13:10 → 5EST 03-07 00:05 → CVICU 03-13 13:04 → 5EST 03-30 00:15
PROVIDERS: ADMIT Internal Medicine; ATTEND Internal Medicine
PROC: 02HV33Z Insertion of Infusion Device into Superior Vena Cava, Percutaneous Approach (ICD-10-PCS; 2020-02-24)
PROC: B518ZZA Fluoroscopy of Superior Vena Cava, Guidance (ICD-10-PCS; 2020-02-24)
PROC: B548ZZA Ultrasonography of Superior Vena Cava, Guidance (ICD-10-PCS; 2020-02-24)
PROC: 4A00X4Z Measurement of Central Nervous Electrical Activity, External Approach (ICD-10-PCS; 2020-02-26)
PROC: 05H533Z Insertion of Infusion Device into Right Subclavian Vein, Percutaneous Approach (ICD-10-PCS; 2020-02-28)
PROC: B546ZZA Ultrasonography of Right Subclavian Vein, Guidance (ICD-10-PCS; 2020-02-28)
PROC: 02HV33Z Insertion of Infusion Device into Superior Vena Cava, Percutaneous Approach (ICD-10-PCS; 2020-02-29)
PROC: B518ZZA Fluoroscopy of Superior Vena Cava, Guidance (ICD-10-PCS; 2020-02-29)
PROC: B548ZZA Ultrasonography of Superior Vena Cava, Guidance (ICD-10-PCS; 2020-02-29)
PROC: 30233K1 Transfusion of Nonautologous Frozen Plasma into Peripheral Vein, Percutaneous Approach (ICD-10-PCS; 2020-03-02)
PROC: 06H03DZ Insertion of Intraluminal Device into Inferior Vena Cava, Percutaneous Approach (ICD-10-PCS; 2020-03-06)
PROC: B549ZZA Ultrasonography of Inferior Vena Cava, Guidance (ICD-10-PCS; 2020-03-06)
PROC: B519ZZA Fluoroscopy of Inferior Vena Cava, Guidance (ICD-10-PCS; 2020-03-06)
PROC: 30233R1 Transfusion of Nonautologous Platelets into Peripheral Vein, Percutaneous Approach (ICD-10-PCS; 2020-03-11)
PROC: 5A1955Z Respiratory Ventilation, Greater than 96 Consecutive Hours (ICD-10-PCS; principal; 2020-03-13)
PROC: 0BH17EZ Insertion of Endotracheal Airway into Trachea, Via Natural or Artificial Opening (ICD-10-PCS; 2020-03-13)
PROC: 02HV33Z Insertion of Infusion Device into Superior Vena Cava, Percutaneous Approach (ICD-10-PCS; 2020-03-17)
PROC: B548ZZA Ultrasonography of Superior Vena Cava, Guidance (ICD-10-PCS; 2020-03-17)
PROC: 02PYX3Z Removal of Infusion Device from Great Vessel, External Approach (ICD-10-PCS; 2020-03-17)
PROC: 5A1D70Z Performance of Urinary Filtration, Intermittent, Less than 6 Hours Per Day (ICD-10-PCS; 2020-03-17)
PROC: 5A1D70Z Performance of Urinary Filtration, Intermittent, Less than 6 Hours Per Day (ICD-10-PCS; 2020-03-19)
PROC: 5A1D70Z Performance of Urinary Filtration, Intermittent, Less than 6 Hours Per Day (ICD-10-PCS; 2020-03-21)
PROC: 5A1D70Z Performance of Urinary Filtration, Intermittent, Less than 6 Hours Per Day (ICD-10-PCS; 2020-03-23)
PROC: 0DBN8ZX Excision of Sigmoid Colon, Via Natural or Artificial Opening Endoscopic, Diagnostic (ICD-10-PCS; 2020-03-25)
PROC: 5A1D70Z Performance of Urinary Filtration, Intermittent, Less than 6 Hours Per Day (ICD-10-PCS; 2020-03-25)
PROC: 0B113F4 Bypass Trachea to Cutaneous with Tracheostomy Device, Percutaneous Approach (ICD-10-PCS; 2020-03-27)
PROC: 0GBJ3ZZ Excision of Thyroid Gland Isthmus, Percutaneous Approach (ICD-10-PCS; 2020-03-27)
PROC: 5A1D70Z Performance of Urinary Filtration, Intermittent, Less than 6 Hours Per Day (ICD-10-PCS; 2020-03-27)
PROC: 0DH63UZ Insertion of Feeding Device into Stomach, Percutaneous Approach (ICD-10-PCS; 2020-03-28)
PROC: 5A1D80Z Performance of Urinary Filtration, Prolonged Intermittent, 6-18 hours Per Day (ICD-10-PCS; 2020-03-29)
PROC: 5A1D70Z Performance of Urinary Filtration, Intermittent, Less than 6 Hours Per Day (ICD-10-PCS; 2020-04-01)
PROC: 5A1D70Z Performance of Urinary Filtration, Intermittent, Less than 6 Hours Per Day (ICD-10-PCS; 2020-04-03)
PROC: 5A1D70Z Performance of Urinary Filtration, Intermittent, Less than 6 Hours Per Day (ICD-10-PCS; 2020-04-05)
PROC: 5A1D70Z Performance of Urinary Filtration, Intermittent, Less than 6 Hours Per Day (ICD-10-PCS; 2020-04-08)
PROC: 0W9930Z Drainage of Right Pleural Cavity with Drainage Device, Percutaneous Approach (ICD-10-PCS; 2020-04-09)
PROC: 5A1D70Z Performance of Urinary Filtration, Intermittent, Less than 6 Hours Per Day (ICD-10-PCS; 2020-04-10)
PROC: 02HV33Z Insertion of Infusion Device into Superior Vena Cava, Percutaneous Approach (ICD-10-PCS; 2020-04-14)
PROC: B548ZZA Ultrasonography of Superior Vena Cava, Guidance (ICD-10-PCS; 2020-04-14)
PROC: 5A1D70Z Performance of Urinary Filtration, Intermittent, Less than 6 Hours Per Day (ICD-10-PCS; 2020-04-16)
PROC: 05HY33Z Insertion of Infusion Device into Upper Vein, Percutaneous Approach (ICD-10-PCS; 2020-04-18)
PROC: B54MZZA Ultrasonography of Right Upper Extremity Veins, Guidance (ICD-10-PCS; 2020-04-18)
PROC: 0W9930Z Drainage of Right Pleural Cavity with Drainage Device, Percutaneous Approach (ICD-10-PCS; 2020-04-18)
PROC: 5A1D70Z Performance of Urinary Filtration, Intermittent, Less than 6 Hours Per Day (ICD-10-PCS; 2020-04-18)
PROC: 0W9930Z Drainage of Right Pleural Cavity with Drainage Device, Percutaneous Approach (ICD-10-PCS; 2020-04-19)
PROC: 5A1D70Z Performance of Urinary Filtration, Intermittent, Less than 6 Hours Per Day (ICD-10-PCS; 2020-04-21)
PROC: 0Y6H0Z3 Detachment at Right Lower Leg, Low, Open Approach (ICD-10-PCS; 2020-04-22)
PROC: 0Y6J0Z3 Detachment at Left Lower Leg, Low, Open Approach (ICD-10-PCS; 2020-04-22)
PROC: 30233N1 Transfusion of Nonautologous Red Blood Cells into Peripheral Vein, Percutaneous Approach (ICD-10-PCS; 2020-04-22)
PROC: 5A1D70Z Performance of Urinary Filtration, Intermittent, Less than 6 Hours Per Day (ICD-10-PCS; 2020-04-23)
PROC: 5A1D70Z Performance of Urinary Filtration, Intermittent, Less than 6 Hours Per Day (ICD-10-PCS; 2020-04-24)
DX: A41.1 Sepsis due to other specified staphylococcus (principal); J69.0 Pneumonitis due to inhalation of food and vomit; G93.41 Metabolic encephalopathy; J96.00 Acute respiratory failure, unspecified whether with hypoxia or hypercapnia; I82.451 Acute embolism and thrombosis of right peroneal vein; K25.9 Gastric ulcer, unspecified as acute or chronic, without hemorrhage or perforation; K85.90 Acute pancreatitis without necrosis or infection, unspecified; E87.6 Hypokalemia; I82.401 Acute embolism and thrombosis of unspecified deep veins of right lower extremity; B37.9 Candidiasis, unspecified; E83.51 Hypocalcemia; E88.09 Other disorders of plasma-protein metabolism, not elsewhere classified; K76.0 Fatty (change of) liver, not elsewhere classified; E87.2 Acidosis; E43 Unspecified severe protein-calorie malnutrition; E86.1 Hypovolemia; E87.0 Hyperosmolality and hypernatremia; E87.4 Mixed disorder of acid-base balance; I96 Gangrene, not elsewhere classified; N17.0 Acute kidney failure with tubular necrosis; R65.21 Severe sepsis with septic shock; B20 Human immunodeficiency virus [HIV] disease; N18.6 End stage renal disease; E80.6 Other disorders of bilirubin metabolism; K56.41 Fecal impaction; K62.6 Ulcer of anus and rectum; K29.70 Gastritis, unspecified, without bleeding; D50.0 Iron deficiency anemia secondary to blood loss (chronic); D63.8 Anemia in other chronic diseases classified elsewhere; D70.9 Neutropenia, unspecified; E03.9 Hypothyroidism, unspecified; E86.0 Dehydration; J43.9 Emphysema, unspecified; J93.82 Other air leak; K22.6 Gastro-esophageal laceration-hemorrhage syndrome; K52.9 Noninfective gastroenteritis and colitis, unspecified; L97.519 Non-pressure chronic ulcer of other part of right foot with unspecified severity; Z66 Do not resuscitate; T79.7XXA Traumatic subcutaneous emphysema, initial encounter; I12.0 Hypertensive chronic kidney disease with stage 5 chronic kidney disease or end stage renal disease; Z20.828 Contact with and (suspected) exposure to other viral communicable diseases; W18.39XA Other fall on same level, initial encounter; Z87.19 Personal history of other diseases of the digestive system; Z88.2 Allergy status to sulfonamides; Z88.8 Allergy status to other drugs, medicaments and biological substances; Z88.6 Allergy status to analgesic agent; Z88.1 Allergy status to other antibiotic agents; Z91.011 Allergy to milk products; Z79.2 Long term (current) use of antibiotics; Z79.899 Other long term (current) drug therapy; Z82.49 Family history of ischemic heart disease and other diseases of the circulatory system; Z99.11 Dependence on respirator [ventilator] status; Z86.73 Personal history of transient ischemic attack (TIA), and cerebral infarction without residual deficits; Z87.891 Personal history of nicotine dependence; Z91.19 Patient's noncompliance with other medical treatment and regimen; Z95.828 Presence of other vascular implants and grafts; Z99.2 Dependence on renal dialysis; Y93.89 Activity, other specified; Y92.89 Other specified places as the place of occurrence of the external cause; Y99.8 Other external cause status; R74.01 Elevation of levels of liver transaminase levels; R62.7 Adult failure to thrive; Z68.20 Body mass index [BMI] 20.0-20.9, adult; C46.9 Kaposi's sarcoma, unspecified; J93.9 Pneumothorax, unspecified; H74.8X3 Other specified disorders of middle ear and mastoid, bilateral
CPT/HCPCS: 36415; 36556; 36573; 36580; 36600; 37191; 70551; 71045; 71250; 74018; 74176; 74220; 76705; 76770; 76937; 77001; 78278; 78580; 80048; 80053; 80076; 80202; 80305; 80307; 80320; 80329; 81003; 82140; 82270; 82330; 82375; 82533; 82550; 82570; 82575; 82607; 82705; 82784; 82805; 82962; 83540; 83550; 83605; 83615; 83735; 84100; 84132; 84145; 84156; 84439; 84443; 84478; 84481; 85014; 85018; 85025; 85027; 85044; 85049; 85362; 85379; 85384; 85651; 86022; 86140; 86334; 86359; 86360; 86592; 86635; 86698; 86705; 86706; 86709; 86803; 86850; 86900; 86920; 86927; 86945; 87015; 87045; 87070; 87077; 87106; 87177; 87186; 87209; 87340; 87426; 87427; 87449; 87635; 87899; 88305; 88307; 88311; 88313; 89055; 92610; 93005; 93306; 93923; 93970; 93971; 94002; 94003; 94640; 95816; 99285; A6261; A9560; C1725; C1752; C1769; C1880; C1887; C1893; C9113; J0610; J0692; J0713; J0770; J1200; J1450; J1580; J1642; J1644; J1956; J2060; J2185; J2248; J2250; J2270; J2370; J2405; J2543; J2704; J2765; J2997; J3010; J3370; J3430; J3475; J3480; J3490; J7040; J7050; J7060; J7070; J8597; L8514; P9016; P9017; P9034; P9041; P9047; Q9963; Q9967; A4315; G0480